=== PATIENT | female | born 1995 | race African-American/Black ===

== ENCOUNTER 2018-04-06 06:20 | Emergency (ER) | payer SELFPAY ==
[2018-04-06 07:15] LABS: Urine Blood NEGATIVE (NEG); Urine Glucose NEGATIVE (NEG); Urine Protein NEGATIVE (NEG); Urine Specific Gravity >1.030 (1.005-1.030)
--- NOTE | 2018-04-06 07:17 | EDPHYS ---
Physician Documentation [facility] Name: Minh Gallardo Age: 22 yrs Sex: Female : 1995 Arrival Date: 04/06/2018 Time: 06:24 Bed 7 Private MD: ED Physician Rodger Smith HPI: 04/06 06:43 This 22 yrs old Black Female presents to ER via Unassigned with complaints of Toothache.kb 06:43 The patient presents with pain. The problem is located in the lower left first molar kb and lower left second bicuspid. Onset: The symptoms/episode began/occurred this morning, at 03:00. Duration: The symptoms are continuous, and are steadily getting worse. Modifying factors: The symptoms are alleviated by nothing, the symptoms are aggravated by talking. Associated signs and symptoms: Pertinent positives: pain, Pertinent negatives: anorexia, chills, dysphagia, fever, inability to eat, nausea, redness in area, swelling, vomiting. Severity of symptoms: At their worst the symptoms were moderate, in the emergency department the symptoms are unchanged. The patient has not experienced similar symptoms in the past. The patient has not recently seen a physician. 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 - Social history:: Smoking status: Patient uses tobacco products, smokes one-half pack cigarettes per day. - Ebola Screening: : Patient negative for fever greater than or equal to 101.5 degrees Fahrenheit, and additional compatible Ebola Virus Disease symptoms Patient denies exposure to infectious person Patient denies travel to an Ebola-affected area in the 21 days before illness onset. ROS: 06:43 Constitutional: Negative for fever, chills, and weight loss, Cardiovascular: Negative kb for chest pain, palpitations, and edema, Respiratory: Negative for shortness of breath, cough, wheezing, and pleuritic chest pain, Abdomen/GI: Negative for abdominal pain, nausea, vomiting, diarrhea, and constipation, Back: Negative for injury and pain, MS/Extremity: Negative for injury and deformity, Skin: Negative for injury, rash, and discoloration, Neuro: Negative for headache, weakness, numbness, tingling, and seizure. 06:43 ENT: Positive for dental pain. Exam: 06:43 Constitutional: This is a well developed, well nourished patient who is awake, alert, kb and in no acute distress. Head/Face: Normocephalic, atraumatic. Chest/axilla: Normal chest wall appearance and motion. Nontender with no deformity. No lesions are appreciated. Cardiovascular: Regular rate and rhythm with a normal S1 and S2. No gallops, murmurs, or rubs. Normal PMI, no JVD. No pulse deficits. Respiratory: Lungs have equal breath sounds bilaterally, clear to auscultation and percussion. No rales, rhonchi or wheezes noted. No increased work of breathing, no retractions or nasal flaring. Abdomen/GI: Soft, non-tender, with normal bowel sounds. No distension or tympany. No guarding or rebound. No evidence of tenderness throughout. Skin: Warm, dry with normal turgor. Normal color with no rashes, no lesions, and no evidence of cellulitis. MS/ Extremity: Pulses equal, no cyanosis. Neurovascular intact. Full, normal range of motion. Neuro: Awake and alert, GCS 15, oriented to person, place, time, and situation. Cranial nerves II-XII grossly intact. Motor strength 5/5 in all extremities. Sensory grossly intact. Cerebellar exam normal. Normal gait. 06:43 ENT: Dental exam: pain, that is moderate, specifically in the lower left first molar (#19) and lower left second bicuspid (#20). Vital Signs: 06:40 BP 115 / 76; Pulse 95; Resp 18; Temp 97.4(O); Pulse Ox 100% on R/A; Weight 72.57 kg fc (R); Height 5 ft. 0 in. (152.40 cm) (R); Pain 10/10; 07:30 BP 112 / 72; Pulse 80; Resp 15; Pulse Ox 100% on R/A; sv 06:40 Body Mass Index 31.25 (72.57 kg, 152.40 cm) fc MDM: 06:39 Patient medically screened. kb 06:43 Data reviewed: vital signs, nurses notes. Data interpreted: Pulse oximetry: on room air kb is 100 %. Interpretation: normal. Counseling: I had a detailed discussion with the patient and/or guardian regarding: the historical points, exam findings, and any diagnostic results supporting the discharge/admit diagnosis, the need for outpatient follow up, a dentist, to return to the emergency department if symptoms worsen or persist or if there are any questions or concerns that arise at home. 04/06 06:58 Order name: Urine Dipstick--Ancillary (enter results); Complete Time: 07:16 mw2 04/06 06:58 Order name: Urine --Ancillary (enter results); Complete Time: 07:16 mw2 04/06 06:42 Order name: Urine Dipstick-Ancillary (obtain specimen); Complete Time: 06:55 kb 04/06 06:42 Order name: Urine Test (obtain specimen); Complete Time: 06:55 kb Administered Medications: 07:24 Drug: TORadol 60 mg Route: IM; Site: right gluteus; sv 07:46 Follow up: Response: No adverse reaction sv Disposition: 12:36 Co-signature as Attending Physician, Rodger Smith MD I agree with the assessment and wa plan of care. Disposition: 04/06/18 07:17 Discharged to Home. Impression: Toothache. - Condition is Stable. - Discharge Instructions: Dental Pain, [id number], Dental Abscess, [id number]. - Prescriptions for Augmentin 875- 125 mg Oral Tablet - take 1 tablet by ORAL route every 12 hours for 7 days; 14 tablet. - Medication Reconciliation Form, Thank You Letter, Antibiotic Education, Prescription Opioid Use, Work release form form. - Follow up: Emergency Department; When: As needed; Reason: Worsening of condition. Follow up: Private Physician; When: 2 - 3 days; Reason: Recheck today's complaints, Continuance of care, Re-evaluation by your physician. Signatures: Dispatcher [employer] Guerita Darling, Kyung Delgado RN RN sv Chretien, Felicia, RN RN fc Appiah, William, MD MD wa Corrections: (The following items were deleted from the chart) 07:45 07:17 04/06/2018 07:17 Discharged to Home. Impression: Toothache. Condition is Stable. sv Discharge Instructions: Dental Abscess, [id number]. Prescriptions for Augmentin 875-125 mg Oral Tablet - take 1 tablet by ORAL route every 12 hours for 7 days; 14 tablet. and Forms are Work release form, Medication Reconciliation Form, Thank You Letter, Antibiotic Education, Prescription Opioid Use. Follow up: Emergency Department; When: As needed; Reason: Worsening of condition. Follow up: Private Physician; When: 2 - 3 days; Reason: Recheck today's complaints, Continuance of care, Re-evaluation by your physician. kb
--- NOTE | 2018-04-06 07:17 | ER ---
Nurse's Notes [facility] Name: Minh Gallardo Age: 22 yrs Sex: Female : 1995 Arrival Date: 04/06/2018 Time: 06:24 Bed 7 Private MD: Diagnosis: Toothache Presentation: 04/06 06:40 Presenting complaint: Patient states: that at 0300 she started to have left lower fc dental pain. Transition of care: patient was not received from another setting of care. Onset of symptoms was April 06, 2018 at 03:00. Risk Assessment: Do you want to hurt yourself or someone else? Patient reports no desire to harm self or others. Initial Sepsis Screen: Does the patient meet any 2 criteria? HR > 90 bpm. Yes Does the patient have a suspected source of infection? No. Patient's initial sepsis screen is negative. Care prior to arrival: None. 06:40 Method Of Arrival: Ambulatory fc 06:40 Acuity: MARY 3 Triage Assessment: 06:50 General: Appears uncomfortable, Behavior is calm, cooperative, appropriate for age. fc Pain: Complains of pain in mouth Pain currently is 10 out of 10 on a pain scale. Quality of pain is described as aching, throbbing, Pain began 4 hours ago. Is continuous. EENT: Oral mucosa is moist. Dental caries noted in lower left second bicuspid (#20) and lower left first molar (#19) Reports pain in lower left second bicuspid (#20) and lower left first molar (#19). Neuro: Level of Consciousness is awake, alert, obeys commands, Oriented to person, place, time, situation. Cardiovascular: No deficits noted. Respiratory: No deficits noted. GI: No deficits noted. : No deficits noted. Derm: Skin is pink, warm \T\ dry. Musculoskeletal: Circulation, motion, and sensation intact. Capillary refill < 3 seconds, Range of motion: intact in all extremities. 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 - Social history:: Smoking status: Patient uses tobacco products, smokes one-half pack cigarettes per day. - Ebola Screening: : Patient negative for fever greater than or equal to 101.5 degrees Fahrenheit, and additional compatible Ebola Virus Disease symptoms Patient denies exposure to infectious person Patient denies travel to an Ebola-affected area in the 21 days before illness onset. Screenin:40 Abuse screen: Denies threats or abuse. Nutritional screening: No deficits noted. fc Tuberculosis screening: No symptoms or risk factors identified. Fall Risk None identified. Assessment: 06:55 General: Appears in no apparent distress. comfortable, Behavior is calm, cooperative, aa1 appropriate for age. Pain: Complains of pain in mouth. Neuro: Level of Consciousness is awake, alert, obeys commands, Oriented to person, place, time, situation, Speech is normal. Respiratory: Airway is patent Respiratory effort is even, unlabored, Respiratory pattern is regular, symmetrical. GI: No signs and/or symptoms were reported involving the gastrointestinal system. : No signs and/or symptoms were reported regarding the genitourinary system. EENT: Oral mucosa is moist. Poor dentition noted. Derm: Skin is intact, is healthy with good turgor, Skin is pink, warm \T\ dry. Musculoskeletal: Capillary refill < 3 seconds. 07:24 Reassessment: Patient appears in no apparent distress at this time. No changes from sv previously documented assessment. Patient and/or family updated on plan of care and expected duration. Pain level reassessed. Patient is alert, oriented x 3, equal unlabored respirations, skin warm/dry/pink. 07:39 Reassessment: Patient appears in no apparent distress at this time. No changes from sv previously documented assessment. Patient and/or family updated on plan of care and expected duration. Pain level reassessed. Patient is alert, oriented x 3, equal unlabored respirations, skin warm/dry/pink. Vital Signs: 06:40 BP 115 / 76; Pulse 95; Resp 18; Temp 97.4(O); Pulse Ox 100% on R/A; Weight 72.57 kg fc (R); Height 5 ft. 0 in. (152.40 cm) (R); Pain 10/10; 07:30 BP 112 / 72; Pulse 80; Resp 15; Pulse Ox 100% on R/A; sv 06:40 Body Mass Index 31.25 (72.57 kg, 152.40 cm) ED Course: 06:24 Patient arrived in ED. es 06:39 Guerita Barrios FNP-C is [facility]. kb 06:39 Rodger Smith MD is Attending Physician. kb 06:40 Arm band placed on Patient placed in an exam room, on a stretcher. fc 06:40 Patient has correct armband on for positive identification. Bed in low position. Call light in reach. 06:48 Triage completed. fc 06:50 Patient did not have IV access during this emergency room visit. fc 06:53 Urine collected: clean catch specimen. aa1 07:17 Kyung Milton, RN is Primary Nurse. sv 07:30 No provider procedures requiring assistance completed. sv Administered Medications: 07:24 Drug: TORadol 60 mg Route: IM; Site: right gluteus; sv 07:46 Follow up: Response: No adverse reaction sv Outcome: 07:17 Discharge ordered by MD. kb 07:30 Discharged to home ambulatory. sv 07:30 Condition: stable 07:30 Discharge instructions given to patient, Instructed on discharge instructions, follow up and referral plans. medication usage, Demonstrated understanding of instructions, follow-up care, medications, Prescriptions given X 1. 07:45 Patient left the ED. sv Signatures: Guerita Barrios FNP-C HAND STRIPPER-Rodolfob Kyung Milton, RN RN Farida Nelson, RN RN aa1 Jodie Cuenca Felicia, RN RN
[2018-04-06] MEDS ORDERED: KETOROLAC 30 MG/ML INJ ONE (07:25)
[2018-04-06 07:50] VITALS: TEMP 97.4; O2SAT 100
[2018-04-06 07:52] VITALS: BP 112/72
== END 2018-04-06 07:45 | disposition home or self-care (01) ==
LOC: ER 06:20
DX: K08.89 Other specified disorders of teeth and supporting structures (principal); F17.210 Nicotine dependence, cigarettes, uncomplicated
CPT/HCPCS: 81003; 81025; 96372; 99283

== ENCOUNTER 2018-04-09 19:57 | Emergency (ER) | payer SELFPAY ==
[2018-04-09 20:44] LABS: Urine Blood NEGATIVE (NEG); Urine Glucose NEGATIVE (NEG); Urine Protein NEGATIVE (NEG); Urine Specific Gravity <1.005 (1.005-1.030); Urine pH 6.5 (5.0-7.0)
[2018-04-09 20:52] LABS: Absolute Lymphocytes (CBC) 1.5 K/uL (0.7-4.9); Absolute Monocytes 0.6 K/uL (0.1-1.3); Absolute Neutrophil 5.3 K/uL (1.8-8.0); Basophils % 0.8 % (0-1.3); Hematocrit 33.7 % (36.0-45.0); Lymphocytes % 19.5 % (15.3-44.8); MCH 28.8 pg (27.0-35.0); MCV 85.9 fL (80-100); MPV 8.9 fL (7.6-11.3); Monocytes % 8.3 % (3.3-12.3); RBC Red Blood Cell Count 3.92 M/uL (3.86-4.86)
[2018-04-09 20:57] LABS: Urine Bacteria <20 /HPF (<20); Urine Culture Reflex Order NOT NEEDED; Urine RBC <5 /HPF (NONE SEEN)
[2018-04-09 21:15] LABS: BUN Blood Urea Nitrogen 10 mg/dL (7-18); Bicarbonate 29 mmol/L (21-32); Glucose Level 76 mg/dL (74-106); Potassium 3.4 mmol/L (3.5-5.1); Sodium Level 144 mmol/L (136-145)
--- NOTE | 2018-04-09 21:45 | EDPHYS ---
Physician Documentation [facility] Name: Minh Gallardo Age: 22 yrs Sex: Female : 1995 Arrival Date: 04/09/2018 Time: 20:00 Bed 14 Private MD: ED Physician Rk Harding HPI: 04/09 20:47 This 22 yrs old Black Female presents to ER via Ambulatory with complaints of Urinary jr8 Problem. 20:47 The patient presents with abdominal pain in the lower abdomen. Onset: The jr8 symptoms/episode began/occurred acutely, today. The symptoms do not radiate. Associated signs and symptoms: Pertinent positives: dysuria. The symptoms are described as crampy. Modifying factors: The symptoms are alleviated by nothing, the symptoms are aggravated by nothing. Severity of pain: At its worst the pain was mild in the emergency department the pain is unchanged. The patient has not experienced similar symptoms in the past. The patient has not recently seen a physician. stated that her low back is hurting as well . 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 - Social history:: Smoking status: Patient uses tobacco products, smokes one-half pack cigarettes per day, Patient uses alcohol, occasionally. - Ebola Screening: : Patient negative for fever greater than or equal to 101.5 degrees Fahrenheit, and additional compatible Ebola Virus Disease symptoms Patient denies exposure to infectious person Patient denies travel to an Ebola-affected area in the 21 days before illness onset. ROS: 20:47 Eyes: Negative for injury, pain, redness, and discharge, ENT: Negative for injury, jr8 pain, and discharge, Neck: Negative for injury, pain, and swelling, Cardiovascular: Negative for chest pain, palpitations, and edema, Respiratory: Negative for shortness of breath, cough, wheezing, and pleuritic chest pain, MS/Extremity: Negative for injury and deformity, Skin: Negative for injury, rash, and discoloration, Neuro: Negative for headache, weakness, numbness, tingling, and seizure. 20:47 Abdomen/GI: Positive for abdominal pain, abdominal cramps, Negative for nausea, vomiting, and diarrhea, abdominal distension, anorexia, dysphagia, hematemesis, black/tarry stool, rectal pain, rectal bleeding, bowel incontinence, flatulence. 20:47 Back: Positive for pain at rest, Negative for pain with movement, radiated pain. 20:47 : Positive for urinary frequency, Negative for flank pain, burning with urination, difficulty urinating, vaginal bleeding, vaginal discharge, vaginal itching. Exam: 20:47 Eyes: Pupils equal round and reactive to light, extra-ocular motions intact. Lids and jr8 lashes normal. Conjunctiva and sclera are non-icteric and not injected. Cornea within normal limits. Periorbital areas with no swelling, redness, or edema. ENT: Nares patent. No nasal discharge, no septal abnormalities noted. Tympanic membranes are normal and external auditory canals are clear. Oropharynx with no redness, swelling, or masses, exudates, or evidence of obstruction, uvula midline. Mucous membranes moist. Neck: Trachea midline, no thyromegaly or masses palpated, and no cervical lymphadenopathy. Supple, full range of motion without nuchal rigidity, or vertebral point tenderness. No Meningismus. Cardiovascular: Regular rate and rhythm with a normal S1 and S2. No gallops, murmurs, or rubs. Normal PMI, no JVD. No pulse deficits. Respiratory: Lungs have equal breath sounds bilaterally, clear to auscultation and percussion. No rales, rhonchi or wheezes noted. No increased work of breathing, no retractions or nasal flaring. Back: No spinal tenderness. No costovertebral tenderness. Full range of motion. Skin: Warm, dry with normal turgor. Normal color with no rashes, no lesions, and no evidence of cellulitis. MS/ Extremity: Pulses equal, no cyanosis. Neurovascular intact. Full, normal range of motion. Neuro: Awake and alert, GCS 15, oriented to person, place, time, and situation. Cranial nerves II-XII grossly intact. Motor strength 5/5 in all extremities. Sensory grossly intact. Cerebellar exam normal. Normal gait. 20:47 Abdomen/GI: Inspection: abdomen appears normal, Bowel sounds: active, all quadrants, Palpation: soft, in all quadrants, mild abdominal tenderness, in the suprapubic area, rebound tenderness, is not appreciated, voluntary guarding, is not appreciated, involuntary guarding, is not appreciated, no appreciated organomegaly, Indicators: McBurney's point is not tender, Sanon's sign is negative, Rovsing's sign is negative, Liver: no appreciated palpable abnormalities, tenderness, is not appreciated. Vital Signs: 20:12 BP 140 / 91; Pulse 78; Resp 18; Temp 98.8(O); Pulse Ox 100% on R/A; Weight 72.57 kg fc (R); Height 5 ft. 10 in. (177.80 cm) (R); Pain 8/10; 21:21 BP 130 / 94; Pulse 72; Resp 18; Pulse Ox 100% ; Pain 8/10; ao 20:12 Body Mass Index 22.96 (72.57 kg, 177.80 cm) fc MDM: 20:14 Patient medically screened. [facility] 21:41 Data reviewed: vital signs, nurses notes, lab test result(s), and as a result, I will jr discharge patient. Data interpreted: Pulse oximetry: on room air is 100 %. Interpretation: normal. Counseling: I had a detailed discussion with the patient and/or guardian regarding: the historical points, exam findings, and any diagnostic results supporting the discharge/admit diagnosis, lab results, the need for outpatient follow up, a family practitioner, to return to the emergency department if symptoms worsen or persist or if there are any questions or concerns that arise at home. ED course: Patient with benign abdomen. Negative for WBC or left shift. Hemodynamically stable. Patient wants to try pain medicine at home for now. If worse or something changes, would come back for further evaluation and CT scan of abd/pelvis . 04/09 20:14 Order name: Urine Microscopic Only; Complete Time: 21:01 jr8 04/09 20:21 Order name: Urine Dipstick--Ancillary (enter results); Complete Time: 20:47 ms 04/09 20:21 Order name: Test, Serum; Complete Time: 21:05 ms 04/09 20:21 Order name: CBC with Diff; Complete Time: 21:01 ms 04/09 20:21 Order name: Basic Metabolic Panel; Complete Time: 21:24 ms 04/09 20:14 Order name: Urine Test (obtain specimen); Complete Time: 20:44 jr8 04/09 20:14 Order name: Urine Dipstick-Ancillary (obtain specimen); Complete Time: 20:44 Administered Medications: 21:51 Drug: Potassium Chloride 20 mEq Route: PO; ao 21:56 Follow up: Response: No adverse reaction ao 21:53 Drug: TORadol 60 mg Route: IM; Site: left gluteus; ao 21:56 Follow up: Response: Medication administered at discharge. ao Disposition: 22:12 Co-signature as Attending Physician, Rk Harding MD. pkl Disposition: 04/09/18 21:44 Discharged to Home. Impression: Abdominal and pelvic pain. - Condition is Stable. - Discharge Instructions: Abdominal Pain, Adult. - Prescriptions for Ibuprofen 800 mg Oral Tablet - take 1 tablet by ORAL route every 12 hours As needed take with food; 20 tablet. Tylenol- Codeine #3 300-30 mg Oral Tablet - take 2 tablets by ORAL route every 6 hours As needed; 20 tablet. - Medication Reconciliation Form, Thank You Letter, Antibiotic Education, Prescription Opioid Use form. - Follow up: Private Physician; When: 2 - 3 days; Reason: Recheck today's complaints, Continuance of care, Re-evaluation by your physician. - Problem is new. - Symptoms have improved. Signatures: Dispatcher [employer] EDMS Rk Harding MD MD pk Meredith Martinez RN RN Vance Uribe PA PA jr8 Francesco Ames RN RN ao Corrections: (The following items were deleted from the chart) 20:49 20:47 : Positive for urinary frequency, jr8 22:05 21:44 04/09/2018 21:44 Discharged to Home. Impression: Abdominal and pelvic pain. ao Condition is Stable. Forms are Medication Reconciliation Form, Thank You Letter, Antibiotic Education, Prescription Opioid Use. Follow up: Private Physician; When: 2 - 3 days; Reason: Recheck today's complaints, Continuance of care, Re-evaluation by your physician. Problem is new. Symptoms have improved. jr8
--- NOTE | 2018-04-09 21:45 | ER ---
Nurse's Notes [facility] Name: Minh Gallardo Age: 22 yrs Sex: Female : 1995 Arrival Date: 04/09/2018 Time: 20:00 Bed 14 Private MD: Diagnosis: Abdominal and pelvic pain Presentation: 04/09 20:10 Presenting complaint: Patient states: that she is having lower back pain and lower abd fc pain that started 1 day ago. Also having urinary frequency. States she fells as if she has a UTI. Transition of care: patient was not received from another setting of care. Onset of symptoms was April 08, 2018. Risk Assessment: Do you want to hurt yourself or someone else? Patient reports no desire to harm self or others. Initial Sepsis Screen: Does the patient meet any 2 criteria? No. Patient's initial sepsis screen is negative. Does the patient have a suspected source of infection? No. Patient's initial sepsis screen is negative. Care prior to arrival: Medication(s) given: Tylenol, this am. 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 - Social history:: Smoking status: Patient uses tobacco products, smokes one-half pack cigarettes per day, Patient uses alcohol, occasionally. - Ebola Screening: : Patient negative for fever greater than or equal to 101.5 degrees Fahrenheit, and additional compatible Ebola Virus Disease symptoms Patient denies exposure to infectious person Patient denies travel to an Ebola-affected area in the 21 days before illness onset. Screenin:12 Abuse screen: Denies threats or abuse. Nutritional screening: No deficits noted. fc Tuberculosis screening: No symptoms or risk factors identified. Fall Risk None identified. Assessment: 20:30 General: Appears in no apparent distress. comfortable, well groomed, well developed, ao well nourished, Behavior is calm, cooperative, appropriate for age. Pain: Complains of pain in back and suprapubic area. Neuro: Level of Consciousness is awake, alert, obeys commands, Oriented to person, place, time, situation, Appropriate for age Moves all extremities. Full function Speech is normal, Facial symmetry appears normal, Pupils are PERRLA. Cardiovascular: Denies chest pain, lightheadedness, shortness of breath, Capillary refill < 3 seconds Patient's skin is warm and dry. Respiratory: Airway is patent Respiratory effort is even, unlabored, Respiratory pattern is regular, symmetrical. GI: Abdomen is flat. : Reports burning with urination, pain urgency, urinary frequency. EENT: No signs and/or symptoms were reported regarding the EENT system. Derm: Skin is intact, Skin is pink, warm \T\ dry. normal, Skin temperature is warm. Musculoskeletal: Circulation, motion, and sensation intact. Range of motion:. 21:21 Reassessment: Patient appears in no apparent distress at this time. Patient and/or ao family updated on plan of care and expected duration. Pain level reassessed. Patient is alert, oriented x 3, equal unlabored respirations, skin warm/dry/pink. Patient under no distress. Monitoring VS. waiting on Dispo orders. Vital Signs: 20:12 BP 140 / 91; Pulse 78; Resp 18; Temp 98.8(O); Pulse Ox 100% on R/A; Weight 72.57 kg fc (R); Height 5 ft. 10 in. (177.80 cm) (R); Pain 8/10; 21:21 BP 130 / 94; Pulse 72; Resp 18; Pulse Ox 100% ; Pain 8/10; ao 20:12 Body Mass Index 22.96 (72.57 kg, 177.80 cm) ED Course: 20:00 Patient arrived in ED. es 20:11 Triage completed. fc 20:12 Arm band placed on Patient placed in an exam room, on a stretcher. fc 20:12 Patient has correct armband on for positive identification. Bed in low position. Call light in reach. 20:12 No provider procedures requiring assistance completed. fc 20:13 Vance Chavis PA is PHCP. jr8 20:14 Rk Harding MD is Attending Physician. jr8 20:18 Francesco Ames, YOLA is Primary Nurse. ao 20:30 Missed attempt(s): 22 gauge in right antecubital area. ao 20:30 Inserted saline lock: 22 gauge in right antecubital area, using aseptic technique. ao ,using aseptic technique. Ultrasound guided technique used Blood collected. 22:04 IV discontinued, intact, bleeding controlled, No redness/swelling at site. Pressure ao dressing applied. Administered Medications: 21:51 Drug: Potassium Chloride 20 mEq Route: PO; ao 21:56 Follow up: Response: No adverse reaction ao 21:53 Drug: TORadol 60 mg Route: IM; Site: left gluteus; ao 21:56 Follow up: Response: Medication administered at discharge. ao Outcome: 21:44 Discharge ordered by MD. kuo 22:04 Discharged to home ao 22:04 Condition: stable 22:04 Discharge instructions given to patient, Instructed on discharge instructions, follow up and referral plans. Demonstrated understanding of instructions, follow-up care, medications, Prescriptions given X 2. 22:05 Patient left the ED. ao Signatures: Jodie Cuenca Felicia, RN RN fc Roszak, Josh, PA PA jr8 Ortiz, Alex, RN RN ao
[2018-04-09] MEDS ORDERED: KETOROLAC 30 MG/ML INJ ONE ×2 (21:49→21:56)
[2018-04-09] MEDS ORDERED: POTASSIUM 25 MEQ EFFERV TAB ONE (21:50)
[2018-04-09 22:46] VITALS: TEMP 98.8; O2SAT 100
[2018-04-09 22:47] VITALS: BP 130/94
== END 2018-04-09 22:05 | disposition home or self-care (01) ==
LOC: ER 19:57
DX: R10.9 Unspecified abdominal pain (principal); R30.0 Dysuria; F17.210 Nicotine dependence, cigarettes, uncomplicated; R10.2 Pelvic and perineal pain
CPT/HCPCS: 36415; 80048; 81003; 81015; 84703; 85025; 96372; 99284

== ENCOUNTER 2018-04-21 18:43 | Emergency (ER) | payer OTHER, SELFPAY ==
--- NOTE | 2018-04-21 19:52 | ER ---
Nurse's Notes [facility] Name: Minh Gallardo Age: 22 yrs Sex: Female : 1995 Arrival Date: 04/21/2018 Time: 18:46 Bed 13 Private MD: Diagnosis: Abnormal uterine and vaginal bleeding, unspecified Presentation: 04/21 18:51 Presenting complaint: Patient states: Vaginal spotting that started yesterday. Patient aj reports positive home test. Transition of care: patient was not received from another setting of care. Onset of symptoms was April 20, 2018. Risk Assessment: Do you want to hurt yourself or someone else? Patient reports no desire to harm self or others. Initial Sepsis Screen: Does the patient meet any 2 criteria? No. Patient's initial sepsis screen is negative. Does the patient have a suspected source of infection? No. Patient's initial sepsis screen is negative. Care prior to arrival: None. 18:51 Method Of Arrival: Ambulatory aj 18:51 Acuity: MARY 3 aj Triage Assessment: 18:52 General: Appears in no apparent distress. comfortable, Behavior is calm, cooperative, aj appropriate for age. Pain: Denies pain. Neuro: Level of Consciousness is awake, alert, obeys commands, Oriented to person, place, time, situation, Appropriate for age. Respiratory: Airway is patent Respiratory effort is even, unlabored, Respiratory pattern is regular, symmetrical. : Reports vaginal bleeding that is spotty. Derm: Skin is intact, is healthy with good turgor, Skin is pink, warm \T\ dry. normal. 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 - Social history:: Smoking status: Patient uses tobacco products, smokes one-half pack cigarettes per day. - Ebola Screening: : Patient negative for fever greater than or equal to 101.5 degrees Fahrenheit, and additional compatible Ebola Virus Disease symptoms Patient denies exposure to infectious person Patient denies travel to an Ebola-affected area in the 21 days before illness onset No symptoms or risks identified at this time. Screenin:18 Abuse screen: Denies threats or abuse. Nutritional screening: No deficits noted. tl2 Tuberculosis screening: No symptoms or risk factors identified. Fall Risk None identified. Assessment: 19:18 General: Appears in no apparent distress. comfortable, Behavior is calm, cooperative, tl2 appropriate for age. General: Pt states that she is about a week late on her period. Yesterday she reported light spotting and today she had a light flow but not as heavy as her normal period. . Pain: Denies pain. Neuro: Level of Consciousness is awake, alert, obeys commands, Oriented to person, place, time, situation. Cardiovascular: Denies chest pain. Respiratory: Airway is patent Respiratory effort is even, unlabored, Respiratory pattern is regular, symmetrical. : Reports vaginal bleeding that is bright red, light flow, spotty. Derm: Skin is pink, warm \T\ dry. 19:21 Reassessment: Pt notified that she needs to give a urine sample. tl2 20:05 Reassessment: Patient appears in no apparent distress at this time. Patient and/or tl2 family updated on plan of care and expected duration. Pain level reassessed. Patient is alert, oriented x 3, equal unlabored respirations, skin warm/dry/pink. Pt verbalized understanding of discharge instructions, need for follow up. Vital Signs: 18:52 BP 125 / 74; Pulse 90; Resp 16; Temp 97.6; Pulse Ox 100% on R/A; Weight 72.57 kg; aj Height 5 ft. 0 in. (152.40 cm); 19:18 BP 130 / 76; Pulse 79; Resp 18; Pulse Ox 96% on R/A; tl2 18:52 Body Mass Index 31.25 (72.57 kg, 152.40 cm) ED Course: 18:46 Patient arrived in ED. mr 18:51 Haris Haney PA is PHCP. [facility] 18:51 Alfredo Deras MD is Attending Physician. [facility] 18:52 Triage completed. aj 18:52 Arm band placed on right wrist. Patient placed in an exam room. aj 19:18 Rhea Carter, YOLA is Primary Nurse. tl2 19:18 Patient has correct armband on for positive identification. Placed in gown. Bed in low tl2 position. Call light in reach. Side rails up X 1. 20:05 No provider procedures requiring assistance completed. Patient did not have IV access tl2 during this emergency room visit. Administered Medications: No medications were administered Outcome: 19:51 Discharge ordered by . jessica 20:05 Discharged to home ambulatory. tl2 20:05 Condition: stable 20:05 Discharge instructions given to patient, Instructed on discharge instructions, follow up and referral plans. Demonstrated understanding of instructions, follow-up care. 20:06 Patient left the ED. tl2 Signatures: Leyla Mckee, RN RN Haris Connor PA PA jmm Rivera, Maria mr Knox, Taylor, RN RN tl2
--- NOTE | 2018-04-21 19:52 | EDPHYS ---
Physician Documentation [facility] Name: Minh Gallardo Age: 22 yrs Sex: Female : 1995 Arrival Date: 04/21/2018 Time: 18:46 Bed 13 Private MD: ED Physician Alfredo Deras HPI: 04/21 19:06 This 22 yrs old Black Female presents to ER via Ambulatory with complaints of 3 wks jmm , Vaginal Bleeding. 19:06 The patient presents with vaginal bleeding that is moderate. Onset: The jmm symptoms/episode began/occurred gradually, 1 day(s) ago. Modifying factors: The symptoms are alleviated by nothing, the symptoms are aggravated by nothing. Associated signs and symptoms: Pertinent positives: vaginal bleeding, Pertinent negatives: cramping, dysuria, urinary frequency, vomiting. This is a that presents to the ED with complains of vaginal bleeding. Patient states her last cycle was on 03/07/2018. Patient states yesterday having a positive home test. Patient states that she spotted yesterday with heavier bleeding today. patient denies abdominal pain, pelvic pain, low back pain. . 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 - Social history:: Smoking status: Patient uses tobacco products, smokes one-half pack cigarettes per day. - Ebola Screening: : Patient negative for fever greater than or equal to 101.5 degrees Fahrenheit, and additional compatible Ebola Virus Disease symptoms Patient denies exposure to infectious person Patient denies travel to an Ebola-affected area in the 21 days before illness onset No symptoms or risks identified at this time. ROS: 19:06 Constitutional: Negative for fever, chills, and weight loss, Cardiovascular: Negative jmm for chest pain, palpitations, and edema, Respiratory: Negative for shortness of breath, cough, wheezing, and pleuritic chest pain, Abdomen/GI: Negative for abdominal pain, nausea, vomiting, diarrhea, and constipation. 19:06 : Positive for vaginal bleeding. 19:06 All other systems are negative. Exam: 19:06 Head/Face: atraumatic. Chest/axilla: Normal chest wall appearance and motion. [facility] Cardiovascular: Regular rate and rhythm. No edema appreciated Respiratory: Normal respirations, no respiratory distress appreciated Abdomen/GI: Non distended, soft 19:06 Constitutional: The patient appears in no acute distress, alert, awake. 19:06 Abdomen/GI: Inspection: abdomen appears normal, Bowel sounds: normal, Palpation: abdomen is soft and non-tender. 19:06 Back: CVA tenderness, is absent. 19:06 : refused pelvic exam. 19:06 Skin: Appearance: Color: normal in color. 19:06 Neuro: Orientation: is normal, Mentation: is normal, Memory: is normal. Vital Signs: 18:52 BP 125 / 74; Pulse 90; Resp 16; Temp 97.6; Pulse Ox 100% on R/A; Weight 72.57 kg; aj Height 5 ft. 0 in. (152.40 cm); 19:18 BP 130 / 76; Pulse 79; Resp 18; Pulse Ox 96% on R/A; tl2 18:52 Body Mass Index 31.25 (72.57 kg, 152.40 cm) aj MDM: 19:29 Patient medically screened. [facility] 19:51 Data reviewed: vital signs, nurses notes. Counseling: I had a detailed discussion with [facility] the patient and/or guardian regarding: the historical points, exam findings, and any diagnostic results supporting the discharge/admit diagnosis, the need for outpatient follow up, to return to the emergency department if symptoms worsen or persist or if there are any questions or concerns that arise at home. 21:57 ED course: Patient advised of the need for cbc and pelvic exam due to abnormal [facility] bleeding. Patient declined after she received UPT results. Patient given return precautions. Patient understood. . 04/21 19:45 Order name: Urine Dipstick--Ancillary (enter results); Complete Time: 21:57 [facility] 04/21 19:45 Order name: Urine --Ancillary (enter results); Complete Time: 21:57 [facility] 04/21 19:06 Order name: Urine Dipstick-Ancillary (obtain specimen); Complete Time: 19:35 [facility] 04/21 19:06 Order name: Urine Test (obtain specimen); Complete Time: 19:35 [facility] Administered Medications: No medications were administered Disposition: 04/21/18 19:51 Discharged to Home. Impression: Abnormal uterine and vaginal bleeding, unspecified. - Condition is Stable. - Discharge Instructions: Abnormal Uterine Bleeding. - Medication Reconciliation Form, Thank You Letter, Antibiotic Education, Prescription Opioid Use form. - Follow up: Private Physician; When: 2 - 3 days; Reason: Recheck today's complaints, Continuance of care, Re-evaluation by your physician. - Notes: Please follow up with OBGYN for further evaluation. Please return to the emergency department if you develop. - Pelvic Pain - Increased bleeding - Weakness - Shortness of breath - Any other concerning symptoms Addendum: 04/22/2018 23:15 Co-signature as Attending Physician, Alfredo Deras MD. g s Signatures: Dispatcher [employer] EDMS Leyla Mckee, RN RN Haris Connor PA PA jmm Knox, Taylor, RN RN tl2 Alfredo Deras MD MD Corrections: (The following items were deleted from the chart) 04/21 20:06 19:51 04/21/2018 19:51 Discharged to Home. Impression: Abnormal uterine and vaginal tl2 bleeding, unspecified. Condition is Stable. Forms are Medication Reconciliation Form, Thank You Letter, Antibiotic Education, Prescription Opioid Use. Follow up: Private Physician; When: 2 - 3 days; Reason: Recheck today's complaints, Continuance of care, Re-evaluation by your physician. jessica
[2018-04-21 20:05] LABS: Urine Blood 2+ (NEG); Urine Glucose NEGATIVE (NEG); Urine Protein NEGATIVE (NEG)
[2018-04-21 20:12] VITALS: TEMP 97.6
[2018-04-21 20:13] VITALS: BP 130/76; O2SAT 96
== END 2018-04-21 20:06 | disposition home or self-care (01) ==
LOC: ER 18:43
DX: O20.9 Hemorrhage in early pregnancy, unspecified (principal)
CPT/HCPCS: 81003; 81025; 99281

== ENCOUNTER 2018-09-17 16:22 | Emergency (ER) | payer SELFPAY ==
--- NOTE | 2018-09-17 19:21 | ER ---
Nurse's Notes [facility] Name: Minh Gallardo Age: 22 yrs Sex: Female : 1995 Arrival Date: 09/17/2018 Time: 16:26 Bed DIS2 Private MD: RENO OLIVIER Diagnosis: Influenza due to certain identified influenza viruses Presentation: 09/17 16:52 Presenting complaint: Patient states: chills, cough, fever, and sore throat x 4 days aa5 ago. 16:52 Transition of care: patient was not received from another setting of care. Onset of aa5 symptoms was September 2018. Risk Assessment: Do you want to hurt yourself or someone else? Patient reports no desire to harm self or others. Initial Sepsis Screen: Does the patient meet any 2 criteria? No. Patient's initial sepsis screen is negative. Does the patient have a suspected source of infection? No. Patient's initial sepsis screen is negative. Care prior to arrival: None. 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 - Social history:: Smoking status: Patient uses tobacco products, smokes one-half pack cigarettes per day, Patient/guardian denies using alcohol, street drugs, The patient lives with family. - Ebola Screening: : No symptoms or risks identified at this time. - Family history:: not pertinent. - Hospitalizations: : No recent hospitalization is reported. Screenin:51 Abuse screen: Denies threats or abuse. Denies injuries from another. Nutritional aj screening: No deficits noted. Tuberculosis screening: No symptoms or risk factors identified. Fall Risk None identified. Assessment: 19:51 General: Appears in no apparent distress. comfortable, Behavior is calm, cooperative, aj appropriate for age. Pain: Complains of pain in entire body. Neuro: Level of Consciousness is awake, alert, obeys commands, Oriented to person, place, time, situation, Appropriate for age. Respiratory: Reports cough that is Airway is patent Respiratory effort is even, unlabored, Respiratory pattern is regular, symmetrical. Respiratory: Reports. EENT: Reports nasal congestion nasal discharge. Derm: Skin is intact, is healthy with good turgor, Skin is pink, warm \T\ dry. normal. Vital Signs: 16:59 BP 122 / 74; Pulse 92; Resp 18 S; Temp 99.2(O); Pulse Ox 100% on R/A; Weight 77.56 kg aa5 (R); Height 5 ft. 0 in. (152.40 cm) (R); Pain 9/10; 16:59 Body Mass Index 33.40 (77.56 kg, 152.40 cm) aa5 ED Course: 16:26 Patient arrived in ED. mr 16:27 WILMER OLIVIERIE is Private Physician. mr 16:52 Arm band placed on. aa5 16:58 Triage completed. aa5 17:09 Brian Price MD is Attending Physician. ma2 18:35 Leyla Mckee, RN is Primary Nurse. aj 19:51 Patient has correct armband on for positive identification. aj 19:51 No provider procedures requiring assistance completed. Patient did not have IV access aj during this emergency room visit. Administered Medications: 18:50 CANCELLED (Physician Discretion): Rocephin 50 mg/kg IV at calculated rate once; IM not aj iv please 19:41 Drug: TORadol 60 mg Route: IM; Site: left gluteus; aj 20:04 Follow up: Response: No adverse reaction aj Outcome: 19:19 Discharge ordered by . ma2 20:05 Discharged to home ambulatory. aj 20:05 Condition: good 20:05 Discharge instructions given to patient, Instructed on discharge instructions, follow up and referral plans. medication usage, Demonstrated understanding of instructions, follow-up care, medications, Prescriptions given X 1. 20:06 Patient left the ED. aj Signatures: Leyla Mckee, Christiana Macedo RN, Audri RN RN aa Brian Price MD MD ma2
--- NOTE | 2018-09-17 19:22 | EDPHYS ---
Physician Documentation [facility] Name: Minh Gallardo Age: 22 yrs Sex: Female : 1995 Arrival Date: 09/17/2018 Time: 16:26 Bed DIS2 Private MD: RENO OLIVIER ED Physician Brian Price HPI: 09/17 17:39 This 22 yrs old Black Female presents to ER via Ambulatory with complaints of Flu ma2 Symptoms. 17:39 Onset: The symptoms/episode began/occurred gradually, 3 day(s) ago. Severity of ma2 symptoms: At their worst the symptoms were moderate in the emergency department the symptoms are unchanged. The patient has experienced similar episodes in the past. 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 - Social history:: Smoking status: Patient uses tobacco products, smokes one-half pack cigarettes per day, Patient/guardian denies using alcohol, street drugs, The patient lives with family. - Ebola Screening: : No symptoms or risks identified at this time. - Family history:: not pertinent. - Hospitalizations: : No recent hospitalization is reported. ROS: 17:39 Constitutional: Negative for fever, chills, and weight loss. ma2 17:39 ENT: Positive for rhinorrhea, sore throat, Negative for drainage from ear(s), foreign body sensation, hearing loss. 17:39 All other systems are negative. Exam: 17:39 Constitutional: This is a well developed, well nourished patient who is awake, alert, ma2 and in no acute distress. 17:39 Chest/axilla: Normal chest wall appearance and motion. Nontender with no deformity. No lesions are appreciated. Cardiovascular: Regular rate and rhythm with a normal S1 and S2. No gallops, murmurs, or rubs. Normal PMI, no JVD. No pulse deficits. Respiratory: Lungs have equal breath sounds bilaterally, clear to auscultation and percussion. No rales, rhonchi or wheezes noted. No increased work of breathing, no retractions or nasal flaring. Abdomen/GI: Soft, non-tender, with normal bowel sounds. No distension or tympany. No guarding or rebound. No evidence of tenderness throughout. MS/ Extremity: Pulses equal, no cyanosis. Neurovascular intact. Full, normal range of motion. Neuro: Awake and alert, GCS 15, oriented to person, place, time, and situation. Cranial nerves II-XII grossly intact. Motor strength 5/5 in all extremities. Sensory grossly intact. Cerebellar exam normal. Normal gait. 17:39 ENT: Posterior pharynx: Tonsils: bilaterally enlarged, with erythema, peritonsillar mass, is not appreciated, pooling of secretions, is not appreciated. Vital Signs: 16:59 BP 122 / 74; Pulse 92; Resp 18 S; Temp 99.2(O); Pulse Ox 100% on R/A; Weight 77.56 kg aa5 (R); Height 5 ft. 0 in. (152.40 cm) (R); Pain 9/10; 16:59 Body Mass Index 33.40 (77.56 kg, 152.40 cm) aa5 MDM: 17:39 Differential Diagnosis uri vs flu. Data reviewed: vital signs, nurses notes. ma2 Counseling: I had a detailed discussion with the patient and/or guardian regarding: the historical points, exam findings, and any diagnostic results supporting the discharge/admit diagnosis, the presence of at least one elevated blood pressure reading (>120/80) during this emergency department visit, the need for outpatient follow up. Response to treatment: the patient's symptoms have markedly improved after treatment. 18:44 Patient medically screened. ma2 09/17 17:37 Order name: Influenza Screen (a \T\ B); Complete Time: 19:19 ma2 Administered Medications: 18:50 CANCELLED (Physician Discretion): Rocephin 50 mg/kg IV at calculated rate once; IM not aj iv please 19:41 Drug: TORadol 60 mg Route: IM; Site: left gluteus; aj 20:04 Follow up: Response: No adverse reaction aj Disposition: 09/17/18 19:19 Discharged to Home. Impression: Influenza due to certain identified influenza viruses. - Condition is Stable. - Discharge Instructions: Influenza, Adult. - Prescriptions for Tamiflu 75 mg Oral Capsule - take 1 tablet by ORAL route every 12 hours for 5 days; 10 tablet. - Medication Reconciliation Form, Thank You Letter, Antibiotic Education, Prescription Opioid Use form. - Follow up: Private Physician; When: Tomorrow; Reason: Continuance of care. Signatures: Dispatcher [employer] Leyla Tapia, RN Debbie Trinidad RN RN aa5 Brian Price MD MD ma2 Corrections: (The following items were deleted from the chart) 18:50 17:37 [id number] [Rocephin 50 mg/kg IV at calculated rate once; IM not iv please] aj ordered. ma2 20:06 19:19 09/17/2018 19:19 Discharged to Home. Impression: Influenza due to certain aj identified influenza viruses. Condition is Stable. Prescriptions for Tamiflu 75 mg Oral Capsule - take 1 tablet by ORAL route every 12 hours for 5 days; 10 tablet. and Forms are Medication Reconciliation Form, Thank You Letter, Antibiotic Education, Prescription Opioid Use. Follow up: Private Physician; When: Tomorrow; Reason: Continuance of care. ma2
[2018-09-17] MEDS ORDERED: KETOROLAC 30 MG/ML INJ ONE (19:49)
[2018-09-17] MEDS ORDERED: NA CHLORIDE 0.9% 250 ML ONE (20:28)
[2018-09-17 20:37] VITALS: BP 122/74; TEMP 99.2; O2SAT 100
== END 2018-09-17 20:06 | disposition home or self-care (01) ==
LOC: ER 16:22
DX: J10.1 Influenza due to other identified influenza virus with other respiratory manifestations (principal); F17.210 Nicotine dependence, cigarettes, uncomplicated
CPT/HCPCS: 87804; 96372; 99283

== ENCOUNTER 2018-10-06 09:35 | Emergency (ER) | payer SELFPAY ==
--- NOTE | 2018-10-06 10:33 | ER ---
Nurse's Notes [facility] Name: Minh Gallardo Age: 23 yrs Sex: Female : 1995 Arrival Date: 10/06/2018 Time: 09:38 Bed 13 Private MD: RENO OLIVIER Diagnosis: Functional dyspepsia; state, incidental Presentation: 10/06 09:57 Presenting complaint: Patient states: lower abdominal pain since last night around 2300. comes and goes, cramping, range is a pain of 6 to a pain of 8. denies NVD, last BM was this morning, normal for pt. states 2 days ago she vomited x1. also states she is finishing tamiflu, the whole family had the flu. states lmp was 08/30/18, might be . Transition of care: patient was not received from another setting of care. Onset of symptoms was October 05, 2018 at 23:00. Risk Assessment: Do you want to hurt yourself or someone else? Patient reports no desire to harm self or others. Initial Sepsis Screen: Does the patient meet any 2 criteria? No. Patient's initial sepsis screen is negative. Does the patient have a suspected source of infection? No. Patient's initial sepsis screen is negative. Care prior to arrival: Medication(s) given: Motrin. 09:57 Method Of Arrival: Ambulatory 09:57 Acuity: MARY 3 ch Triage Assessment: 10:00 General: Appears in no apparent distress. comfortable, Behavior is calm, cooperative, ch appropriate for age. Pain: Complains of pain in suprapubic area, right lower quadrant and left lower quadrant Pain. EENT: No deficits noted. Neuro: No deficits noted. Cardiovascular: No deficits noted. Respiratory: Airway is patent Respiratory effort is even, unlabored, Breath sounds are clear bilaterally. GI: Abdomen is round Bowel sounds present X 4 quads. Abd is soft X 4 quads Abd is non tender X 4 quads Reports lower abdominal pain, cramping. : No signs and/or symptoms were reported regarding the genitourinary system. Denies burning with urination, cramping discharge, urinary frequency, urgency, vaginal bleeding, vaginal itching. Derm: Skin is intact, Skin is dry, Skin is normal, Skin temperature is warm. Musculoskeletal: Capillary refill < 3 seconds, in bilateral fingers. toes. 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 - Social history:: Smoking status: Patient/guardian denies using tobacco. - Ebola Screening: : Patient negative for fever greater than or equal to 101.5 degrees Fahrenheit, and additional compatible Ebola Virus Disease symptoms Patient denies exposure to infectious person Patient denies travel to an Ebola-affected area in the 21 days before illness onset No symptoms or risks identified at this time. Screenin:04 Abuse screen: Denies threats or abuse. Denies injuries from another. Nutritional screening: No deficits noted. Tuberculosis screening: No symptoms or risk factors identified. Fall Risk None identified. Assessment: 10:04 Reassessment: Patient appears in no apparent distress at this time. Patient and/or family updated on plan of care and expected duration. Pain level reassessed. Patient is alert, oriented x 3, equal unlabored respirations, skin warm/dry/pink. 11:03 Reassessment: Patient appears in no apparent distress at this time. No changes from previously documented assessment. Patient and/or family updated on plan of care and expected duration. Pain level reassessed. Patient is alert, oriented x 3, equal unlabored respirations, skin warm/dry/pink. Patient states feeling better. Vital Signs: 10:00 BP 124 / 43; Pulse 88; Resp 16; Temp 98.8; Pulse Ox 100% on R/A; Weight 76.66 kg; Height 5 ft. (152.40 cm); Pain 6/10; 11:03 BP 120 / 72; Pulse 71; Resp 16; Temp 98.6; Pulse Ox 99% on R/A; Pain 5/10; 10:00 Body Mass Index 33.01 (76.66 kg, 152.40 cm) ED Course: 09:38 Patient arrived in ED. mr 09:38 RENO OLIVIER is Private Physician. mr 09:49 Ruma Chiu, YOLA is Primary Nurse. 09:53 Debra Gross FNP-C is [facility]. snw 09:53 Brian Price MD is Attending Physician. snw 09:59 Triage completed. 10:00 Arm band placed on left wrist. Patient placed in an exam room, on a stretcher, on pulse ch oximetry. 10:04 Patient has correct armband on for positive identification. Placed in gown. Bed in low ch position. Call light in reach. Side rails up X 1. Pulse ox on. NIBP on. 10:17 Urine collected: clean catch specimen, cloudy, brandon colored. jb1 10:31 Wagner Pressley MD is Referral Physician. snw 11:03 No apparent distress. Resting quietly. ch 11:03 No provider procedures requiring assistance completed. Patient did not have IV access ch during this emergency room visit. Administered Medications: No medications were administered Outcome: 10:32 Discharge ordered by . snw 11:03 Patient left the ED. ch 11:03 Discharged to home ambulatory. 11:03 Condition: improved 11:03 Discharge instructions given to patient, Instructed on discharge instructions, follow up and referral plans. Demonstrated understanding of instructions, follow-up care. Signatures: Jose Chavira jb1 Ruma Chiu, RN RN Debra Gross FNP-C CLIENT SERVICE CONSULTANT-[facility] Christiana Miramontes
--- NOTE | 2018-10-06 10:33 | EDPHYS ---
Physician Documentation [facility] Name: Minh Gallardo Age: 23 yrs Sex: Female : 1995 Arrival Date: 10/06/2018 Time: 09:38 Bed 13 Private MD: RENO OLIVIER ED Physician Brian Price HPI: 10/06 10:15 This 23 yrs old Black Female presents to ER via Ambulatory with complaints of Abdominal snw Cramping. 10:16 The patient presents with abdominal pain in the lower abdomen. Onset: The snw symptoms/episode began/occurred suddenly, 1 week(s) ago, and became persistent. The symptoms do not radiate. Associated signs and symptoms: Pertinent positives: nausea and vomiting. The symptoms are described as crampy. Severity of pain: At its worst the pain was mild. The patient has experienced similar episodes in the past. The patient has been recently seen by a physician: with different complaint(s), recent influenza. 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 - Social history:: Smoking status: Patient/guardian denies using tobacco. - Ebola Screening: : Patient negative for fever greater than or equal to 101.5 degrees Fahrenheit, and additional compatible Ebola Virus Disease symptoms Patient denies exposure to infectious person Patient denies travel to an Ebola-affected area in the 21 days before illness onset No symptoms or risks identified at this time. ROS: 10:13 Constitutional: Negative for fever, chills, and weight loss, Eyes: Negative for injury, snw pain, redness, and discharge, ENT: Negative for injury, pain, and discharge, Neck: Negative for injury, pain, and swelling, Cardiovascular: Negative for chest pain, palpitations, and edema, Respiratory: Negative for shortness of breath, cough, wheezing, and pleuritic chest pain, Back: Negative for injury and pain, : Negative for injury, bleeding, discharge, and swelling, MS/Extremity: Negative for injury and deformity, Skin: Negative for injury, rash, and discoloration, Neuro: Negative for headache, weakness, numbness, tingling, and seizure. 10:13 Abdomen/GI: Positive for nausea, vomiting, abdominal cramps, Negative for diarrhea, constipation. Exam: 10:12 Constitutional: This is a well developed, well nourished patient who is awake, alert, snw and in no acute distress. Head/Face: Normocephalic, atraumatic. Eyes: Pupils equal round and reactive to light, extra-ocular motions intact. Lids and lashes normal. Conjunctiva and sclera are non-icteric and not injected. Cornea within normal limits. Periorbital areas with no swelling, redness, or edema. ENT: Nares patent. No nasal discharge, no septal abnormalities noted. Tympanic membranes are normal and external auditory canals are clear. Oropharynx with no redness, swelling, or masses, exudates, or evidence of obstruction, uvula midline. Mucous membranes moist. Neck: Trachea midline, no thyromegaly or masses palpated, and no cervical lymphadenopathy. Supple, full range of motion without nuchal rigidity, or vertebral point tenderness. No Meningismus. Chest/axilla: Normal chest wall appearance and motion. Nontender with no deformity. No lesions are appreciated. Cardiovascular: Regular rate and rhythm with a normal S1 and S2. + Murmur, grade 2/6. No gallops or rubs. Normal PMI, no JVD. No pulse deficits. Respiratory: Lungs have equal breath sounds bilaterally, clear to auscultation and percussion. No rales, rhonchi or wheezes noted. No increased work of breathing, no retractions or nasal flaring. Back: No spinal tenderness. No costovertebral tenderness. Full range of motion. Skin: Warm, dry with normal turgor. Normal color with no rashes, no lesions, and no evidence of cellulitis. MS/ Extremity: Pulses equal, no cyanosis. Neurovascular intact. Full, normal range of motion. Neuro: Awake and alert, GCS 15, oriented to person, place, time, and situation. Cranial nerves II-XII grossly intact. Motor strength 5/5 in all extremities. Sensory grossly intact. Cerebellar exam normal. Normal gait. 10:12 Abdomen/GI: Inspection: abdomen appears normal, Bowel sounds: normal, Palpation: mild abdominal tenderness, in all quadrants. Vital Signs: 10:00 BP 124 / 43; Pulse 88; Resp 16; Temp 98.8; Pulse Ox 100% on R/A; Weight 76.66 kg; ch Height 5 ft. (152.40 cm); Pain 6/10; 11:03 BP 120 / 72; Pulse 71; Resp 16; Temp 98.6; Pulse Ox 99% on R/A; Pain 5/10; ch 10:00 Body Mass Index 33.01 (76.66 kg, 152.40 cm) ch MDM: 09:53 Patient medically screened. snw 10:15 Data reviewed: vital signs, nurses notes. Data interpreted: Pulse oximetry: on room air snw is 100 %. Interpretation: normal. Counseling: I had a detailed discussion with the patient and/or guardian regarding: the historical points, exam findings, and any diagnostic results supporting the discharge/admit diagnosis, lab results. 10:30 Special discussion: Based on the patient's Hx, exam, and Dx evaluation, there is no snw indication for emergent surgery or inpatient Tx. It is understood by the patient/guardian that if the Sx's persist or worsen they need to return immediately for re-evaluation. Based on the history and exam findings, there is no indication for further emergent testing or inpatient evaluation. I discussed with the patient/guardian the need to see the OB Gyne specialist for further evaluation of the symptoms. 10/06 10:10 Order name: Urine Culture snw 10/06 10:10 Order name: Urine Microscopic Only w 10/06 10:10 Order name: Urine Test (obtain specimen); Complete Time: 10:17 snw 10/06 10:10 Order name: Urine Dipstick-Ancillary (obtain specimen); Complete Time: 10:17 snw 10/06 10:42 Order name: Urine Dipstick--Ancillary (enter results) eb 10/06 10:42 Order name: Urine --Ancillary (enter results) eb Administered Medications: No medications were administered Disposition: 17:51 Co-signature as Attending Physician, Brian Price MD. ma2 Disposition: 10/06/18 10:32 Discharged to Home. Impression: Functional dyspepsia, state, incidental. - Condition is Stable. - Discharge Instructions: Nausea, Adult, First Trimester of , Ktaa-yx-Ihsi, and Influenza. - Medication Reconciliation Form, Thank You Letter, Antibiotic Education, Prescription Opioid Use form. - Follow up: Wagner Pressley MD; When: 1 week; Reason: Recheck today's complaints, Continuance of care, Re-evaluation by your physician. Signatures: Dispatcher [employer] EDRuma Parsons RN RN ch Debra Gross, ELECTRIC DETECTOR OPERATOR-C ELECTRIC DETECTOR OPERATOR-Cs[facility] Brian Price MD MD ma2 Corrections: (The following items were deleted from the chart) 11:03 10:32 10/06/2018 10:32 Discharged to Home. Impression: Functional dyspepsia; ch state, incidental. Condition is Stable. Forms are Medication Reconciliation Form, Thank You Letter, Antibiotic Education, Prescription Opioid Use. Follow up: Wagner Pressley; When: 1 week; Reason: Recheck today's complaints, Continuance of care, Re-evaluation by your physician. snw
[2018-10-06 10:59] LABS: Urine Bacteria <20 /HPF (<20); Urine Culture Reflex Order NOT NEEDED; Urine RBC <5 /HPF (NONE SEEN)
[2018-10-06 11:17] VITALS: BP 124/43; TEMP 98.8; O2SAT 100
[2018-10-06 12:00] LABS: Urine Blood NEGATIVE (NEG); Urine Glucose NEGATIVE (NEG); Urine Protein NEGATIVE (NEG); Urine Specific Gravity 1.025 (1.005-1.030); Urine pH 6.5 (5.0-7.0)
== END 2018-10-06 11:03 | disposition home or self-care (01) ==
LOC: ER 09:35
DX: K30 Functional dyspepsia (principal); Z33.1 Pregnant state, incidental
CPT/HCPCS: 81003; 81015; 81025; 87086; 87088; 99283

== ENCOUNTER 2018-11-11 11:01 | Emergency (ER) | payer OTHER, SELFPAY ==
--- OUTSIDE RECORDS SUMMARY | 2018-11-11 11:04 | XMS REPORT ---
:1995 [facility] [address] [place] [address] Care Team Providers Name Role Phone Unavailable Unavailable Unavailable Problems This patient has no known problems. Allergies, Adverse Reactions, Alerts This patient has no known allergies or adverse reactions. Medications This patient has no known medications.
[2018-11-11] MEDS ORDERED: NA CHLORIDE 0.9% 1,000 ML ONE (11:44)
[2018-11-11 12:02] LABS: Absolute Lymphocytes (CBC) 1.2 K/uL (0.7-4.9); Absolute Monocytes 0.7 K/uL (0.1-1.3); Absolute Neutrophil 7.7 K/uL (1.8-8.0); Basophils % 0.4 % (0-1.3); Eosinophils % 0.9 % (0-4.4); Hematocrit 34.6 % (36.0-45.0); Lymphocytes % 12.3 % (15.3-44.8); MPV 8.5 fL (7.6-11.3); Monocytes % 7.1 % (3.3-12.3); RBC Red Blood Cell Count 4.04 M/uL (3.86-4.86)
[2018-11-11 12:26] LABS: Urine Blood NEGATIVE (NEG); Urine Glucose NEGATIVE (NEG); Urine Protein NEGATIVE (NEG); Urine Specific Gravity 1.025 (1.005-1.030)
[2018-11-11 12:40] LABS: BUN Blood Urea Nitrogen 5 mg/dL (7-18); Bicarbonate 24 mmol/L (21-32); Glucose Level 84 mg/dL (74-106); HCG, Quantitative 72034 mIU/mL (1-3); Potassium 3.7 mmol/L (3.5-5.1); Sodium Level 139 mmol/L (136-145)
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
--- NOTE | 2018-11-11 12:44 | EDPHYS ---
Physician Documentation [facility] Name: Minh Gallardo Age: 23 yrs Sex: Female : 1995 Arrival Date: 11/11/2018 Time: 11:03 Bed 5 Private MD: RENO OLIVIER ED Physician Epi Fallon HPI: 11/11 11:46 This 23 yrs old Black Female presents to ER via Ambulatory with complaints of Abdominal leanna Pain, BLEEDING, . 11:46 The patient presents with abdominal pain in the lower abdomen. Onset: The leanna symptoms/episode began/occurred 2 day(s) ago. The patient presents with vaginal bleeding that is light. Onset: The symptoms/episode began/occurred 2 day(s) ago. Modifying factors: The symptoms are alleviated by nothing, the symptoms are aggravated by nothing. Severity of symptoms: At their worst the symptoms were mild, in the emergency department the symptoms are unchanged. The estimated gestational age is 11 weeks. 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 - Social history:: Smoking status: Patient/guardian denies using tobacco. - Ebola Screening: : No symptoms or risks identified at this time. - Family history:: not pertinent. ROS: 11:46 Constitutional: Negative for fever, chills, and weight loss, Eyes: Negative for injury, leanna pain, redness, and discharge, ENT: Negative for injury, pain, and discharge, Neck: Negative for injury, pain, and swelling, Cardiovascular: Negative for chest pain, palpitations, and edema, Respiratory: Negative for shortness of breath, cough, wheezing, and pleuritic chest pain, Back: Negative for injury and pain, MS/Extremity: Negative for injury and deformity, Skin: Negative for injury, rash, and discoloration, Neuro: Negative for headache, weakness, numbness, tingling, and seizure, Psych: Negative for depression, anxiety, suicide ideation, homicidal ideation, and hallucinations, Allergy/Immunology: Negative for hives, rash, and allergies, Endocrine: Negative for neck swelling, polydipsia, polyuria, polyphagia, and marked weight changes, Hematologic/Lymphatic: Negative for swollen nodes, abnormal bleeding, and unusual bruising. 11:46 Abdomen/GI: Positive for abdominal pain, abdominal distension. 11:46 : Positive for vaginal bleeding. Exam: 11:46 Constitutional: This is a well developed, well nourished patient who is awake, alert, leanna and in no acute distress. Head/Face: Normocephalic, atraumatic. Eyes: Pupils equal round and reactive to light, extra-ocular motions intact. Lids and lashes normal. Conjunctiva and sclera are non-icteric and not injected. Cornea within normal limits. Periorbital areas with no swelling, redness, or edema. ENT: Nares patent. No nasal discharge, no septal abnormalities noted. Tympanic membranes are normal and external auditory canals are clear. Oropharynx with no redness, swelling, or masses, exudates, or evidence of obstruction, uvula midline. Mucous membranes moist. Neck: Trachea midline, no thyromegaly or masses palpated, and no cervical lymphadenopathy. Supple, full range of motion without nuchal rigidity, or vertebral point tenderness. No Meningismus. Chest/axilla: Normal chest wall appearance and motion. Nontender with no deformity. No lesions are appreciated. Cardiovascular: Regular rate and rhythm with a normal S1 and S2. No gallops, murmurs, or rubs. Normal PMI, no JVD. No pulse deficits. Respiratory: Lungs have equal breath sounds bilaterally, clear to auscultation and percussion. No rales, rhonchi or wheezes noted. No increased work of breathing, no retractions or nasal flaring. Back: No spinal tenderness. No costovertebral tenderness. Full range of motion. Skin: Warm, dry with normal turgor. Normal color with no rashes, no lesions, and no evidence of cellulitis. MS/ Extremity: Pulses equal, no cyanosis. Neurovascular intact. Full, normal range of motion. Neuro: Awake and alert, GCS 15, oriented to person, place, time, and situation. Cranial nerves II-XII grossly intact. Motor strength 5/5 in all extremities. Sensory grossly intact. Cerebellar exam normal. Normal gait. Psych: Awake, alert, with orientation to person, place and time. Behavior, mood, and affect are within normal limits. 11:46 Abdomen/GI: Inspection: gravid appearance, Bowel sounds: normal, Palpation: abdomen is soft and non-tender, Liver: no appreciated palpable abnormalities, Hernia: not appreciated. Vital Signs: 11:10 BP 124 / 74; Pulse 101; Resp 16; Temp 98.2; Pulse Ox 97% on R/A; Weight 86.18 kg; la1 Height 5 ft. 0 in. (152.40 cm); 11:10 Body Mass Index 37.11 (86.18 kg, 152.40 cm) la1 MDM: 11:23 Patient medically screened. [facility] 11:49 Data reviewed: vital signs, nurses notes, lab test result(s), radiologic studies, [facility] ultrasound. 11/11 11:25 Order name: Quantitative Hcg; Complete Time: 12:43 [facility] 11/11 11:25 Order name: Abo/rh Typing; Complete Time: 12:43 [facility] 11/11 11:25 Order name: Basic Metabolic Panel; Complete Time: 12:43 [facility] 11/11 11:25 Order name: CBC with Diff; Complete Time: 12:23 [facility] 11/11 11:25 Order name: Urine Culture [facility] 11/11 11:39 Order name: Urine Dipstick--Ancillary (enter results); Complete Time: 12:43 11/11 11:25 Order name: Urine Test (obtain specimen); Complete Time: 11:29 [facility] 11/11 11:25 Order name: IV Saline Lock; Complete Time: 11:29 [facility] 11/11 11:25 Order name: Labs collected and sent; Complete Time: 13:09 [facility] 11/11 11:25 Order name: NPO; Complete Time: 11:29 [facility] 11/11 11:39 Order name: Urine --Ancillary (enter results); Complete Time: 12:43 11/11 12:03 Order name: Matter Eval Tm 1 EDVT 11/11 11:25 Order name: Urine Dipstick-Ancillary (obtain specimen); Complete Time: 11:29 [facility] Administered Medications: 12:20 Drug: NS 0.9% 1000 ml Route: IV; Rate: 1 bolus; Site: right antecubital; iw Disposition: 11/11/18 12:43 Discharged to Home. Impression: related conditions, unspecified, first trimester, related conditions, unspecified, second trimester, related conditions, unspecified, third trimester, Threatened . - Condition is Stable. - Discharge Instructions: Threatened Miscarriage, Vaginal Bleeding During , First Trimester, Vaginal Bleeding During , Second Trimester, First Trimester of , [id number], First Trimester of , Threatened Miscarriage, Zawe-uj-Isic, Pelvic Rest, Vaginal Bleeding During , Second Trimester, Lyrq-gq-Onru. - Prescriptions for Diclegis 10- 10 mg Oral tablet,delayed release (DR/EC) - take 1 tablet by ORAL route 3 times per day and 2 tablets at bedtime; 60 tablet. Vitamin 27- 0.8 mg Oral Tablet - take 1 tablet by ORAL route once daily; 30 tablet. - Medication Reconciliation Form, Thank You Letter, Antibiotic Education, Prescription Opioid Use form. - Follow up: Private Physician; When: 2 - 3 days; Reason: Recheck today's complaints, Continuance of care, Re-evaluation by your physician. Follow up: Mini Rekhi; When: 2 - 3 days; Reason: Recheck today's complaints, Continuance of care, Re-evaluation by your physician. - Problem is new. - Symptoms have improved. Signatures: Dispatcher [employer] [facility] Epi Fallon MD MD cha Williams, Irene, RN RN iw Spike Fuller RN RN laElizabeth Hope RN RN hb Corrections: (The following items were deleted from the chart) 12:03 11:25 Transvaginal Ob+US.RAD.BRZ ordered. [facility] 13:23 12:43 11/11/2018 12:43 Discharged to Home. Impression: related conditions, hb unspecified, first trimester; related conditions, unspecified, second trimester; related conditions, unspecified, third trimester; Threatened . Condition is Stable. Discharge Instructions: Threatened Miscarriage, Vaginal Bleeding During , First Trimester, Vaginal Bleeding During , Second Trimester, First Trimester of , Cmsu-sk-Oyta, First Trimester of , Threatened Miscarriage, Umsr-jv-Fkph, Pelvic Rest, Vaginal Bleeding During , Second Trimester, Kjbk-lr-Vgig. Prescriptions for Diclegis 10-10 mg Oral tablet,delayed release (DR/EC) - take 1 tablet by ORAL route 3 times per day and 2 tablets at bedtime; 60 tablet, Vitamin 27-0.8 mg Oral Tablet - take 1 tablet by ORAL route once daily; 30 tablet. and Forms are Medication Reconciliation Form, Thank You Letter, Antibiotic Education, Prescription Opioid Use. Follow up: Private Physician; When: 2 - 3 days; Reason: Recheck today's complaints, Continuance of care, Re-evaluation by your physician. Follow up: Mini Rekhi; When: 2 - 3 days; Reason: Recheck today's complaints, Continuance of care, Re-evaluation by your physician. Problem is new. Symptoms have improved. leanna
[2018-11-11 13:36] VITALS: BP 124/74; TEMP 98.2; O2SAT 97
--- NOTE | 2018-11-11 15:00 | RAD REPORT ---
EXAM DESCRIPTION: US - Matter Alex Tm 1 - 11/11/2018 12:02 pm CLINICAL HISTORY: Abd cramping, ;Vaginal bleeding Early . COMPARISON: Transvaginal OB dated 06/08/2016 FINDINGS: A single gestational sac is seen within the uterus. The shape of the sac is within normal limits for gestational age. Within the sac is a single pole with crown-rump length of 4.2 cm, c orrelating to estimated gestational age of 11 weeks 1 day gestational age. Heart rate is 166 BPM. The placenta is not yet developed / visualized due to early gestational age. The maternal adnexa and left ovary are within normal limits. Normal Doppler blood flow was demonstrat ed to the left ovary. The right ovary is obscured by bowel gas. IMPRESSION: Single live early intrauterine gestation with estimated gestational age of 11 weeks 1 da y. No unusual or unexpected finding.
== END 2018-11-11 13:23 | disposition home or self-care (01) ==
LOC: ER 11:01
DX: O20.0 Threatened abortion (principal); Z3A.11 11 weeks gestation of pregnancy; F32.9 Major depressive disorder, single episode, unspecified
CPT/HCPCS: 36415; 76801; 80048; 81003; 81025; 84702; 85025; 86900; 86901; 87086; 87088; 99283; J7030

== ENCOUNTER 2018-11-25 12:01 | Emergency (ER) | payer OTHER ==
--- OUTSIDE RECORDS SUMMARY | 2018-11-25 12:03 | XMS REPORT ---
:1995 [facility] [place] [address] Care Team Providers Name Role Phone Unavailable Unavailable Unavailable Problems This patient has no known problems. Allergies, Adverse Reactions, Alerts This patient has no known allergies or adverse reactions. Medications This patient has no known medications.
[2018-11-25 13:08] LABS: Urine Blood NEGATIVE (NEG); Urine Glucose NEGATIVE (NEG); Urine Protein NEGATIVE (NEG); Urine Specific Gravity 1.015 (1.005-1.030)
[2018-11-25] MEDS ORDERED: ACETAMINOPHEN 325 MG TABLET ONE (13:59)
[2018-11-25] MEDS ORDERED: CYCLOBENZAPRINE 10 MG TAB ONE (13:59)
[2018-11-25] MEDS ORDERED: NA CHLORIDE 0.9% 1,000 ML ONE (13:59)
[2018-11-25 14:01] LABS: Urine Bacteria <20 /HPF (<20); Urine Culture Reflex Order NOT NEEDED; Urine RBC <5 /HPF (NONE SEEN)
[2018-11-25 14:23] LABS: Absolute Lymphocytes (CBC) 1.7 K/uL (0.7-4.9); Absolute Monocytes 0.5 K/uL (0.1-1.3); Absolute Neutrophil 4.9 K/uL (1.8-8.0); Basophils % 0.7 % (0-1.3); Eosinophils % 2.5 % (0-4.4); Hematocrit 35.1 % (36.0-45.0); Lymphocytes % 23.5 % (15.3-44.8); MPV 8.8 fL (7.6-11.3); Monocytes % 6.3 % (3.3-12.3); RBC Red Blood Cell Count 4.07 M/uL (3.86-4.86)
--- NOTE | 2018-11-25 14:39 | RAD REPORT ---
EXAM DESCRIPTION: US - Abdomen Exam Limited - 11/25/2018 2:26 pm CLINICAL HISTORY: Abdominal pain. COMPARISON: None. FINDINGS: The gallbladder wall is not thickened. A gallstone is not seen. The biliary tree is normal caliber. IMPRESSION: Unremarkable gallbladder ultrasound.
[2018-11-25 14:42] LABS: ALT/SGPT 12 U/L (12-78); AST/SGOT 13 U/L (15-37); Alkaline Phosphatase 41 U/L (45-117); BUN Blood Urea Nitrogen 4 mg/dL (7-18); Bicarbonate 23 mmol/L (21-32); Bilirubin Direct < 0.1 mg/dL (0-0.2); Bilirubin Total 0.3 mg/dL (0.2-1.0); Glucose Level 68 mg/dL (74-106); Lipase 61 U/L (73-393); Potassium 4.2 mmol/L (3.5-5.1); Protein, Total 6.9 g/dL (6.4-8.2); Sodium Level 141 mmol/L (136-145)
--- NOTE | 2018-11-25 15:09 | ER ---
Nurse's Notes [facility] Name: Minh Gallardo Age: 23 yrs Sex: Female : 1995 Arrival Date: 11/25/2018 Time: 12:09 Bed 24 Private MD: KYUNG OLIVIER Diagnosis: Low back pain Presentation: 11/25 12:14 Presenting complaint: Patient states: low back pain, dark yellow urination x 1 day. sv Reports frequent UTIs. Transition of care: patient was not received from another setting of care. Onset of symptoms was November 24, 2018. Care prior to arrival: None. 12:14 Method Of Arrival: Ambulatory sv 12:14 Acuity: MARY 4 sv 15:15 Risk Assessment: Do you want to hurt yourself or someone else? Patient reports no la1 desire to harm self or others. Initial Sepsis Screen: Does the patient meet any 2 criteria? No. Patient's initial sepsis screen is negative. Does the patient have a suspected source of infection? No. Patient's initial sepsis screen is negative. Historical: - Allergies: 12:15 No Known Allergies; sv - PMHx: 12:15 Depression; sv - PSHx: 12:15 Appendectomy; oophorectomy; sv - Immunization history:: Adult Immunizations. - Social history:: Smoking status: Patient/guardian denies using tobacco. - Ebola Screening: : No symptoms or risks identified at this time. Screenin:14 Abuse screen: Denies threats or abuse. Nutritional screening: No deficits noted. la1 Tuberculosis screening: No symptoms or risk factors identified. Fall Risk None identified. Assessment: 13:13 General: Appears in no apparent distress. Behavior is calm, cooperative. Pain: la1 Complains of pain in back. Neuro: Level of Consciousness is awake, alert, obeys commands, Oriented to person, place, time, situation. Cardiovascular: Capillary refill < 3 seconds is brisk in bilateral Patient's skin is warm and dry. Respiratory: Airway is patent Respiratory effort is even, unlabored, Respiratory pattern is regular, symmetrical, Breath sounds are clear bilaterally. GI: No signs and/or symptoms were reported involving the gastrointestinal system. : No signs and/or symptoms were reported regarding the genitourinary system. Vital Signs: 12:15 BP 122 / 77; Pulse 79; Resp 18; Temp 97.5; Pulse Ox 99% ; Weight 86.18 kg; Height 5 ft. sv 0 in. (152.40 cm); Pain 9/10; 15:14 BP 124 / 74; Pulse 71; Resp 16; Pulse Ox 98% on R/A; la1 12:15 Body Mass Index 37.11 (86.18 kg, 152.40 cm) sv Vitals: 13:22 Heart Tones 157. la1 ED Course: 12:09 Patient arrived in ED. mr 12:09 KYUNG OLIVIER is Private Physician. mr 12:15 Triage completed. sv 12:15 Arm band placed on. sv 12:21 Haris Haney PA is PHCP. [facility] 12:21 Epi Fallon MD is Attending Physician. [facility] 12:43 Spike Fuller, RN is Primary Nurse. la1 13:14 Call light in reach. la1 14:14 No provider procedures requiring assistance completed. Inserted saline lock: 22 gauge la1 in left forearm, using aseptic technique. 14:26 US Abdomen Limited In Process Unspecified. EDMS 14:27 Ultrasound completed. Patient tolerated well. 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 sg3 15:15 IV discontinued, intact, bleeding controlled, No redness/swelling at site. Pressure la1 dressing applied. Administered Medications: 13:51 Drug: Flexeril 10 mg Route: PO; la1 15:16 Follow up: Response: No adverse reaction la1 13:51 Drug: Tylenol 650 mg Route: PO; la1 15:16 Follow up: Response: No adverse reaction la1 13:51 Drug: NS 0.9% 1000 ml Route: IV; Rate: 1 bolus; Site: left forearm; la1 15:16 Follow up: IV Status: Completed infusion la1 Outcome: 15:07 Discharge ordered by . [facility] 15:15 Discharged to home via ambulance. la1 15:15 Condition: stable 15:15 Discharge instructions given to patient, Instructed on discharge instructions, follow up and referral plans. medication usage, Demonstrated understanding of instructions, follow-up care, medications, Prescriptions given X 1. 15:16 Patient left the ED. la1 Signatures: Dispatcher [employer] EDMS Kyung Milton, YOLA RN Haris Haney PA PA jmm Rivera, Mary mr Spike Fuller RN RN la1 Chano, Kayce sg3
--- NOTE | 2018-11-25 15:09 | EDPHYS ---
Physician Documentation [facility] Name: Minh Gallardo Age: 23 yrs Sex: Female : 1995 Arrival Date: 11/25/2018 Time: 12:09 Bed 24 Private MD: KYUNG OLIVIER ED Physician Epi Fallon HPI: 11/25 13:10 This 23 yrs old Black Female presents to ER via Ambulatory with complaints of Back Pain.jmm 13:10 The patient presents with pain that is acute, with no known mechanism of injury. Onset: jm The symptoms/episode began/occurred gradually, 1 day(s) ago. This is a 23 year old female with a history of depression and currently 13 weeks IUP that presents to the ED with complaints of lower back pain beginning 1 days ago. Patient denies vaginal bleeding, denies vaginal discharge. Denies fever, denies vomiting. Patient states she had a similar episode with a previous UTI. . 13:10 Patient denies vomiting or diarrhea. jmm Historical: - Allergies: 12:15 No Known Allergies; sv - PMHx: 12:15 Depression; sv - PSHx: 12:15 Appendectomy; oophorectomy; sv - Immunization history:: Adult Immunizations. - Social history:: Smoking status: Patient/guardian denies using tobacco. - Ebola Screening: : No symptoms or risks identified at this time. ROS: 13:10 Constitutional: Negative for fever, chills, and weight loss, Eyes: Negative for injury, jmm pain, redness, and discharge, ENT: Negative for injury, pain, and discharge, Neck: Negative for injury, pain, and swelling, Cardiovascular: Negative for chest pain, palpitations, and edema, Respiratory: Negative for shortness of breath, cough, wheezing, and pleuritic chest pain, Abdomen/GI: Negative for abdominal pain, nausea, vomiting, diarrhea, and constipation, Back: Negative for injury and pain, MS/Extremity: Negative for injury and deformity, Skin: Negative for injury, rash, and discoloration, Neuro: Negative for headache, weakness, numbness, tingling, and seizure, Psych: Negative for depression, anxiety, suicide ideation, homicidal ideation, and hallucinations. 13:10 All other systems are negative. Exam: 13:10 Constitutional: This is a well developed, well nourished patient who is awake, alert, jmm and in no acute distress. Head/Face: atraumatic. Eyes: EOMI, no conjunctival erythema appreciated ENT: Moist Mucus Membranes Neck: Trachea midline, Supple Chest/axilla: Normal chest wall appearance and motion. Cardiovascular: Regular rate and rhythm. No edema appreciated Respiratory: Normal respirations, no respiratory distress appreciated Abdomen/GI: Non distended, soft Back: Normal ROM Skin: General appearance color normal MS/ Extremity: Moves all extremities, no obvious deformities appreciated, no edema noted to the lower extremities Neuro: Awake and alert, normal gait Vital Signs: 12:15 BP 122 / 77; Pulse 79; Resp 18; Temp 97.5; Pulse Ox 99% ; Weight 86.18 kg; Height 5 ft. sv 0 in. (152.40 cm); Pain 9/10; 15:14 BP 124 / 74; Pulse 71; Resp 16; Pulse Ox 98% on R/A; la1 12:15 Body Mass Index 37.11 (86.18 kg, 152.40 cm) sv MDM: 12:[address] [facility] 14:59 Data reviewed: vital signs, nurses notes. Counseling: I had a detailed discussion with jessica the patient and/or guardian regarding: the historical points, exam findings, and any diagnostic results supporting the discharge/admit diagnosis, lab results, radiology results, the need for outpatient follow up, to return to the emergency department if symptoms worsen or persist or if there are any questions or concerns that arise at home. ED course: Patient is alert and non toxic in appearance in the ED. Patient states she feels much better. Symptoms appear to be due to musculoskeletal back pain. Patient is advised to return to the ED if she develops worsening pain, fever, vomiting, vaginal bleeding or any other concerning symptoms. . 11/25 12:27 Order name: Urine Dipstick--Ancillary (enter results); Complete Time: 13:09 11/25 12:27 Order name: Urine --Ancillary (enter results); Complete Time: 13:09 11/25 13:19 Order name: Basic Metabolic Panel; Complete Time: 14:44 [facility] 11/25 13:19 Order name: CBC with Diff; Complete Time: 14:32 [facility] 11/25 13:19 Order name: Creatinine for Radiology; Complete Time: 14:44 [facility] 11/25 13:19 Order name: Hepatic Function; Complete Time: 14:44 [facility] 11/25 13:09 Order name: Heart Tones; Complete Time: 13:18 [facility] 11/25 13:19 Order name: Lipase; Complete Time: 14:44 [facility] 11/25 13:19 Order name: IV Saline Lock; Complete Time: 13:51 [facility] 11/25 13:20 Order name: US Abdomen Limited; Complete Time: 14:44 [facility] 11/25 13:34 Order name: Urine Microscopic Only; Complete Time: 14:04 [facility] 11/25 13:19 Order name: Labs collected and sent; Complete Time: 14:15 [facility] Administered Medications: 13:51 Drug: Flexeril 10 mg Route: PO; la1 15:16 Follow up: Response: No adverse reaction la1 13:51 Drug: Tylenol 650 mg Route: PO; la1 15:16 Follow up: Response: No adverse reaction la1 13:51 Drug: NS 0.9% 1000 ml Route: IV; Rate: 1 bolus; Site: left forearm; la1 15:16 Follow up: IV Status: Completed infusion la1 Disposition: 11/26 07:52 Co-signature as Attending Physician, Epi Fallon MD I agree with the assessment and leanna plan of care. Disposition: 11/25/18 15:07 Discharged to Home. Impression: Low back pain. - Condition is Stable. - Discharge Instructions: Back Pain, Adult. - Prescriptions for Cyclobenzaprine 10 mg Oral Tablet - take 1 tablet by ORAL route every 8 hours As needed; 30 tablet. - Medication Reconciliation Form, Thank You Letter, Antibiotic Education, Prescription Opioid Use, Work release form form. - Follow up: Private Physician; When: 2 - 3 days; Reason: Recheck today's complaints, Continuance of care, Re-evaluation by your physician. Signatures: Dispatcher [employer] Kyung Padilla RN RN sv Anderson, Corey, MD MD cha Mickail, Joel, PA PA Spike Cardenas RN RN la1 Corrections: (The following items were deleted from the chart) 11/25 15:16 15:07 11/25/2018 15:07 Discharged to Home. Impression: Low back pain. Condition is la1 Stable. Forms are Medication Reconciliation Form, Thank You Letter, Antibiotic Education, Prescription Opioid Use. Follow up: Private Physician; When: 2 - 3 days; Reason: Recheck today's complaints, Continuance of care, Re-evaluation by your physician. jessica
[2018-11-25 15:23] VITALS: TEMP 97.5
[2018-11-25 15:24] VITALS: BP 124/74; O2SAT 98
== END 2018-11-25 15:16 | disposition home or self-care (01) ==
LOC: ER 12:01
DX: O26.891 Other specified pregnancy related conditions, first trimester (principal); M54.5 Low back pain; Z3A.13 13 weeks gestation of pregnancy; O99.341 Other mental disorders complicating pregnancy, first trimester; F32.9 Major depressive disorder, single episode, unspecified
CPT/HCPCS: 36415; 76705; 80048; 80076; 81003; 81015; 81025; 83690; 85025; 96360; 99284; J7030

== ENCOUNTER 2019-06-01 00:06 | Emergency (ER) | payer OTHER ==
[2019-06-01 01:05] LABS: Urine Blood 3+ (NEG); Urine Glucose NEGATIVE (NEG); Urine Protein 1+ (NEG); Urine Specific Gravity 1.025 (1.005-1.030)
--- NOTE | 2019-06-01 01:13 | ER ---
Nurse's Notes [facility] Name: Minh Gallardo Age: 23 yrs Sex: Female : 1995 Arrival Date: 06/01/2019 Time: 00:17 Bed 17 Private MD: Diagnosis: Malaise and fatigue;Essential (primary) hypertension Presentation: 06/01 00:28 Presenting complaint: Patient states: she has been having severe aching in her neck, aa1 head and back since yesterday. Denies fever or any other symptoms. Transition of care: patient was not received from another setting of care. Onset of symptoms was May 30, 2019. Risk Assessment: Do you want to hurt yourself or someone else? Patient reports no desire to harm self or others. Initial Sepsis Screen: Does the patient meet any 2 criteria? No. Patient's initial sepsis screen is negative. Does the patient have a suspected source of infection? No. Patient's initial sepsis screen is negative. Care prior to arrival: None. 00:28 Method Of Arrival: Ambulatory aa1 00:28 Acuity: MARY 4 aa1 Triage Assessment: 00:40 Pain: Also complains of no other associated symptoms. rr5 00:40 Headache History: Denies prior headaches. General: Appears in no apparent distress. rr5 uncomfortable, Behavior is calm, cooperative, appropriate for age. Pain: Complains of pain in head neck and back. 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 - Social history:: Smoking status: Patient uses tobacco products, denies chronic smoking, but will smoke occasionally. - Family history:: not pertinent. - Ebola Screening: : Patient denies exposure to infectious person Patient denies travel to an Ebola-affected area in the 21 days before illness onset. Screenin:12 Abuse screen: Denies threats or abuse. Denies injuries from another. Nutritional rr5 screening: No deficits noted. Tuberculosis screening: No symptoms or risk factors identified. Fall Risk None identified. Total Manrique Fall Scale indicates No Risk (0-24 pts). Assessment: 00:40 General: Appears in no apparent distress. uncomfortable, Behavior is calm, cooperative, rr5 appropriate for age. 00:40 Pain: Complains of pain in head neck and back Pain does not radiate. Pain currently is rr5 10 out of 10 on a pain scale. Quality of pain is described as aching, Pain began gradually, Is intermittent. Neuro: Level of Consciousness is awake, alert, obeys commands, Oriented to person, place, time, situation, Appropriate for age Reports headache neck pain and back.. Cardiovascular: Capillary refill < 3 seconds Patient's skin is warm and dry. Respiratory: Airway is patent Respiratory effort is even, unlabored, Respiratory pattern is regular, symmetrical. GI: Abdomen is round. : No signs and/or symptoms were reported regarding the genitourinary system. EENT: No signs and/or symptoms were reported regarding the EENT system. Derm: Skin is intact, Skin temperature is warm. Musculoskeletal: Circulation, motion, and sensation intact. Capillary refill < 3 seconds. 01:50 Reassessment: Patient appears in no apparent distress at this time. Patient is alert, rr5 oriented x 3, equal unlabored respirations, skin warm/dry/pink. ED provider spoke to patient, agreed for the plan of care and discharge instruction. 02:05 Reassessment: Patient appears in no apparent distress at this time. Patient is alert, rr5 oriented x 3, equal unlabored respirations, skin warm/dry/pink. patient wants to leave now, denies any discomfort or dizziness. 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 discharge instruction given and explained without complaints made, verbalized understanding. Vital Signs: 00:31 BP 173 / 112; Pulse 70; Resp 16; Temp 97.6; Pulse Ox 100% on R/A; Weight 90.72 kg; aa1 Height 4 ft. 0 in. (121.92 cm); Pain 10/10; 01:11 BP 152 / 96; Pulse 75; Resp 16; Pulse Ox 98% ; rr5 01:55 BP 162 / 104; Pulse 70; Resp 18; Pulse Ox 100% on R/A; rr5 00:31 Body Mass Index 61.03 (90.72 kg, 121.92 cm) aa1 ED Course: 00:17 Patient arrived in ED. mr 00:18 Epi Fallon MD is Attending Physician. [facility] 00:29 Triage completed. aa1 00:30 Miah Gunter, YOLA is Primary Nurse. rr5 00:31 Arm band placed on right wrist. Patient placed in an exam room, on a stretcher. aa1 00:40 Patient has correct armband on for positive identification. Bed in low position. Call rr5 light in reach. 01:12 Harsha Casanova MD is Referral Physician. [facility] 02:00 No provider procedures requiring assistance completed. Patient did not have IV access rr5 during this emergency room visit. Administered Medications: 01:56 Drug: Tylenol #3 (300 mg-30 mg) 2 tabs {Note: rass 0.} Route: PO; rr5 02:05 Follow up: Response: No adverse reaction; Medication administered at discharge.; RASS: rr5 Alert and Calm (0) Outcome: 01:13 Discharge ordered by . [facility] 02:00 Discharged to home ambulatory, with family. rr5 02:00 Condition: stable 02:00 Discharge instructions given to patient, Instructed on discharge instructions, follow up and referral plans. medication usage, Demonstrated understanding of instructions, follow-up care, medications, Prescriptions given X 1. 02:05 Patient left the ED. rr5 Signatures: Farida Ramírez, RN RN aa Epi Fallon MD MD cha Rivera, Mary mr Miah Gunter, RN RN rr5
--- NOTE | 2019-06-01 01:13 | EDPHYS ---
Physician Documentation [facility] Name: Minh Gallardo Age: 23 yrs Sex: Female : 1995 Arrival Date: 06/01/2019 Time: 00:17 Bed 17 Private MD: ED Physician Epi Fallon HPI: 06/01 00:27 This 23 yrs old Black Female presents to ER via Unassigned with complaints of Body leanna aches, Headache. 00:27 The patient complains of pain to the top of head, left frontal area, left side of the leanna back of head, left occipital area, left base of the skull, right frontal area, right side of the back of head, right occipital area and right base of the skull. The patient describes the headache as aching. Onset: The symptoms/episode began/occurred 1 day(s) ago. Associated signs and symptoms: The patient has no apparent associated signs or symptoms. Severity of symptoms: At its worst the pain was mild, in the emergency department the pain is unchanged. Headache History: Denies prior headaches. The symptoms are alleviated by nothing. The patient has not experienced similar symptoms in the past. 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 - Social history:: Smoking status: Patient uses tobacco products, denies chronic smoking, but will smoke occasionally. - Family history:: not pertinent. - Ebola Screening: : Patient denies exposure to infectious person Patient denies travel to an Ebola-affected area in the 21 days before illness onset. ROS: 00:29 Constitutional: Negative for fever, chills, and weight loss. leanna 00:30 Eyes: Negative for injury, pain, redness, and discharge, ENT: Negative for injury, leanna pain, and discharge, Neck: Negative for injury, pain, and swelling, Cardiovascular: Negative for chest pain, palpitations, and edema, Respiratory: Negative for shortness of breath, cough, wheezing, and pleuritic chest pain, Abdomen/GI: Negative for abdominal pain, nausea, vomiting, diarrhea, and constipation, : Negative for injury, bleeding, discharge, and swelling, MS/Extremity: Negative for injury and deformity, Skin: Negative for injury, rash, and discoloration, Neuro: Negative for headache, weakness, numbness, tingling, and seizure, Psych: Negative for depression, anxiety, suicide ideation, homicidal ideation, and hallucinations, Allergy/Immunology: Negative for hives, rash, and allergies, Endocrine: Negative for neck swelling, polydipsia, polyuria, polyphagia, and marked weight changes, Hematologic/Lymphatic: Negative for swollen nodes, abnormal bleeding, and unusual bruising. 00:30 Back: Positive for of the left scapular area, right scapular area and thoracic area. Exam: 00:30 Constitutional: This is a well developed, well nourished patient who is awake, alert, leanna and in no acute distress. Head/Face: Normocephalic, atraumatic. Eyes: Pupils equal round and reactive to light, extra-ocular motions intact. Lids and lashes normal. Conjunctiva and sclera are non-icteric and not injected. Cornea within normal limits. Periorbital areas with no swelling, redness, or edema. ENT: Nares patent. No nasal discharge, no septal abnormalities noted. Tympanic membranes are normal and external auditory canals are clear. Oropharynx with no redness, swelling, or masses, exudates, or evidence of obstruction, uvula midline. Mucous membranes moist. Neck: Trachea midline, no thyromegaly or masses palpated, and no cervical lymphadenopathy. Supple, full range of motion without nuchal rigidity, or vertebral point tenderness. No Meningismus. Chest/axilla: Normal chest wall appearance and motion. Nontender with no deformity. No lesions are appreciated. Cardiovascular: Regular rate and rhythm with a normal S1 and S2. No gallops, murmurs, or rubs. Normal PMI, no JVD. No pulse deficits. Respiratory: Lungs have equal breath sounds bilaterally, clear to auscultation and percussion. No rales, rhonchi or wheezes noted. No increased work of breathing, no retractions or nasal flaring. Abdomen/GI: Soft, non-tender, with normal bowel sounds. No distension or tympany. No guarding or rebound. No evidence of tenderness throughout. Back: No spinal tenderness. No costovertebral tenderness. Full range of motion. Skin: Warm, dry with normal turgor. Normal color with no rashes, no lesions, and no evidence of cellulitis. MS/ Extremity: Pulses equal, no cyanosis. Neurovascular intact. Full, normal range of motion. Neuro: Awake and alert, GCS 15, oriented to person, place, time, and situation. Cranial nerves II-XII grossly intact. Motor strength 5/5 in all extremities. Sensory grossly intact. Cerebellar exam normal. Normal gait. Psych: Awake, alert, with orientation to person, place and time. Behavior, mood, and affect are within normal limits. 00:30 Musculoskeletal/extremity: ROM: Compartment Syndrome exam of affected extremity: Joints: Weight bearing: able to fully bear weight, DVT Exam: No signs of deep vein thrombosis. no pain, no swelling, no tenderness, negative Homans' sign noted on exam, no appreciated bluish discoloration, no erythema, no increased warmth. Vital Signs: 00:31 BP 173 / 112; Pulse 70; Resp 16; Temp 97.6; Pulse Ox 100% on R/A; Weight 90.72 kg; aa1 Height 4 ft. 0 in. (121.92 cm); Pain 10/10; 01:11 BP 152 / 96; Pulse 75; Resp 16; Pulse Ox 98% ; rr5 01:55 BP 162 / 104; Pulse 70; Resp 18; Pulse Ox 100% on R/A; rr5 00:31 Body Mass Index 61.03 (90.72 kg, 121.92 cm) aa1 MDM: 00:18 Patient medically screened. [facility] 00:32 Data reviewed: vital signs, nurses notes, lab test result(s), EKG, radiologic studies, [facility] CT scan. 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 06/01 00:26 Order name: Flu; Complete Time: 01:28 [facility] 06/01 00:27 Order name: Urine Culture [facility] 06/01 00:27 Order name: Urine Dipstick-Ancillary (obtain specimen); Complete Time: 00:58 [facility] 06/01 00:58 Order name: Urine Dipstick--Ancillary (enter results); Complete Time: 01:08 [facility] 06/01 00:58 Order name: Urine --Ancillary (enter results); Complete Time: 01:08 [facility] 06/01 01:00 Order name: Vital Signs; Complete Time: 01:11 [facility] Administered Medications: 01:56 Drug: Tylenol #3 (300 mg-30 mg) 2 tabs {Note: rass 0.} Route: PO; rr5 02:05 Follow up: Response: No adverse reaction; Medication administered at discharge.; RASS: rr5 Alert and Calm (0) Disposition: 06/01/19 01:13 Discharged to Home. Impression: Malaise and fatigue, Essential (primary) hypertension. - Condition is Stable. - Discharge Instructions: Hypertension, Weakness, Fatigue, Hypertension, [id number], How to Take Your Blood Pressure, Jbbf-dw-[id number], Weakness, Yvkl-ck-Vfdx, Managing Your Hypertension. - Prescriptions for Ibuprofen 600 mg Oral Tablet - take 1 tablet by ORAL route 3 times per day As needed take with food; 21 tablet. - Medication Reconciliation Form, Thank You Letter, Antibiotic Education, Prescription Opioid Use form. - Follow up: Private Physician; When: 2 - 3 days; Reason: Recheck today's complaints, Continuance of care, Re-evaluation by your physician. Follow up: Harsha Casanova; When: 2 - 3 days; Reason: Recheck today's complaints, Re-evaluation by your physician. - Problem is new. - Symptoms have improved. Signatures: Dispatcher [employer] Farida Sifuentes RN RN aa1 Epi Fallon MD MD cha Roque, Raymond, RN RN rr5 Corrections: (The following items were deleted from the chart) 02:05 01:13 06/01/2019 01:13 Discharged to Home. Impression: Malaise and fatigue; Essential rr5 (primary) hypertension. Condition is Stable. Discharge Instructions: Weakness, Fatigue, Weakness, Esfm-pw-[id number], Hypertension, Hypertension, Tvzu-sb-Wqse, How to Take Your Blood Pressure, Qpkm-yl-Wwsg, Managing Your Hypertension. Prescriptions for Ibuprofen 600 mg Oral Tablet - take 1 tablet by ORAL route 3 times per day As needed take with food; 21 tablet. and Forms are Medication Reconciliation Form, Thank You Letter, Antibiotic Education, Prescription Opioid Use. Follow up: Private Physician; When: 2 - 3 days; Reason: Recheck today's complaints, Continuance of care, Re-evaluation by your physician. Follow up: Harsha Casanova; When: 2 - 3 days; Reason: Recheck today's complaints, Re-evaluation by your physician. Problem is new. Symptoms have improved. leanna
[2019-06-01] MEDS ORDERED: CODEINE 30MG/APAP 300MG TAB ONE (01:51)
[2019-06-01 02:28] VITALS: TEMP 97.6
[2019-06-01 02:29] VITALS: BP 152/96; O2SAT 98
== END 2019-06-01 02:05 | disposition home or self-care (01) ==
LOC: ER 00:06
DX: I10 Essential (primary) hypertension (principal); R53.81 Other malaise; R53.83 Other fatigue; Z72.0 Tobacco use
CPT/HCPCS: 81003; 81025; 87086; 87088; 87804; 99283

== ENCOUNTER 2019-06-26 09:21 | Emergency (ER) | payer OTHER ==
[2019-06-26 09:43] LABS: Absolute Lymphocytes (CBC) 2.2 K/uL (0.7-4.9); Basophils % 0.9 % (0-1.3); Hematocrit 35.9 % (36.0-45.0); MPV 8.8 fL (7.6-11.3); RBC Red Blood Cell Count 4.29 M/uL (3.86-4.86)
[2019-06-26 10:07] LABS: BUN Blood Urea Nitrogen 9 mg/dL (7-18); Bicarbonate 25 mmol/L (21-32); Glucose Level 90 mg/dL (74-106); Potassium 3.8 mmol/L (3.5-5.1); Sodium Level 141 mmol/L (136-145)
[2019-06-26 10:21] LABS: HCG, Quantitative < 1 mIU/mL (1-3)
--- NOTE | 2019-06-26 11:36 | ER ---
Nurse's Notes [facility] Name: Minh Gallardo Age: 23 yrs Sex: Female : 1995 Arrival Date: 06/26/2019 Time: 09:23 Bed 20 Private MD: Diagnosis: Other abnormal uterine and vaginal bleeding Presentation: 06/26 09:29 Presenting complaint: Gave 05/27, had unprotected sex 2 weeks ago, reports spotty hb vaginal bleeding and abdominal cramping since yesterday. + home test. Transition of care: patient was not received from another setting of care. Onset of symptoms was June 25, 2019. Risk Assessment: Do you want to hurt yourself or someone else? Patient reports no desire to harm self or others. Initial Sepsis Screen: Does the patient meet any 2 criteria? No. Patient's initial sepsis screen is negative. Does the patient have a suspected source of infection? No. Patient's initial sepsis screen is negative. Care prior to arrival: None. 09:29 Method Of Arrival: Ambulatory hb 09:29 Acuity: MARY 3 hb Triage Assessment: 09:32 General: Appears in no apparent distress. Behavior is calm, cooperative. Pain: Pain hb currently is 7 out of 10 on a pain scale. EENT: No signs and/or symptoms were reported regarding the EENT system. Neuro: Level of Consciousness is awake, alert, obeys commands, Oriented to person, place, time, situation. Cardiovascular: Capillary refill < 3 seconds Patient's skin is warm and dry. Respiratory: Airway is patent Respiratory effort is even, unlabored, Respiratory pattern is regular, symmetrical, Breath sounds are clear bilaterally. GI: No signs and/or symptoms were reported involving the gastrointestinal system. : Reports vaginal bleeding that is spotty. Derm: Skin is pink, warm \T\ dry. Musculoskeletal: No signs and/or symptoms reported regarding the musculoskeletal system. 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 - Social history:: Smoking status: Patient/guardian denies using tobacco, Patient/guardian denies using alcohol, street drugs, The patient lives with family. - Ebola Screening: : No symptoms or risks identified at this time. - Family history:: not pertinent. Screenin:39 Abuse screen: Denies threats or abuse. Denies injuries from another. Nutritional hb screening: No deficits noted. Tuberculosis screening: No symptoms or risk factors identified. Fall Risk None identified. Assessment: 09:35 General: see triage assessment. hb 10:30 Reassessment: Patient appears in no apparent distress at this time. Patient and/or hb family updated on plan of care and expected duration. Pain level reassessed. Patient is alert, oriented x 3, equal unlabored respirations, skin warm/dry/pink. Vital Signs: 09:33 BP 152 / 106; Pulse 73; Resp 16; Temp 98.2; Pulse Ox 100% ; Weight 90.72 kg; Height 5 hb ft. (152.40 cm); Pain 7/10; 09:33 Body Mass Index 39.06 (90.72 kg, 152.40 cm) hb ED Course: 09:23 Patient arrived in ED. as 09:27 Brian Price MD is Attending Physician. ma2 09:29 Elizaebth Esteves, RN is Primary Nurse. hb 09:31 Triage completed. hb 09:33 Arm band placed on. hb 09:34 Initial lab(s) drawn, by la, sent to lab. Inserted saline lock: 22 gauge in right 3 antecubital area, using aseptic technique. Blood collected. 11:10 Urine collected: clean catch specimen, clear. [facility] 11:52 No provider procedures requiring assistance completed. Patient did not have IV access ss during this emergency room visit. Administered Medications: No medications were administered Outcome: 11:35 Discharge ordered by . ma2 11:59 Patient left the ED. ss Signatures: Pamela Brown Shelby, RN RN Elizabeth Esteves, YOLA ACEVES [place] [id number] Brian Price MD MD ma2
--- NOTE | 2019-06-26 11:36 | EDPHYS ---
Physician Documentation [facility] Name: Minh Gallardo Age: 23 yrs Sex: Female : 1995 Arrival Date: 06/26/2019 Time: 09:23 Bed 20 Private MD: ED Physician Brian Price HPI: 06/26 10:01 This 23 yrs old Black Female presents to ER via Ambulatory with complaints of Vaginal ma2 Bleeding - unk weeks preg, Pelvic Pain. 10:01 Onset: The symptoms/episode began/occurred gradually, 3 day(s) ago. Associated signs ma2 and symptoms: Pertinent negatives: dyspareunia, fever, nausea, vaginal bleeding. Severity of symptoms: At their worst the symptoms were mild, in the emergency department the symptoms are unchanged. The patient has not experienced similar symptoms in the past. 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 - Social history:: Smoking status: Patient/guardian denies using tobacco, Patient/guardian denies using alcohol, street drugs, The patient lives with family. - Ebola Screening: : No symptoms or risks identified at this time. - Family history:: not pertinent. ROS: 10:01 Negative for urinary symptoms. ma2 10:01 Constitutional: Negative for fever, chills, and weight loss, Cardiovascular: Negative for chest pain, palpitations, and edema. 10:01 All other systems are negative. Exam: 10:01 Constitutional: This is a well developed, well nourished patient who is awake, alert, ma2 and in no acute distress. Chest/axilla: Normal chest wall appearance and motion. Nontender with no deformity. No lesions are appreciated. Cardiovascular: Regular rate and rhythm with a normal S1 and S2. No gallops, murmurs, or rubs. Normal PMI, no JVD. No pulse deficits. Respiratory: Lungs have equal breath sounds bilaterally, clear to auscultation and percussion. No rales, rhonchi or wheezes noted. No increased work of breathing, no retractions or nasal flaring. Abdomen/GI: Soft, non-tender, with normal bowel sounds. No distension or tympany. No guarding or rebound. No evidence of tenderness throughout. MS/ Extremity: Pulses equal, no cyanosis. Neurovascular intact. Full, normal range of motion. Psych: Awake, alert, with orientation to person, place and time. Behavior, mood, and affect are within normal limits. Vital Signs: 09:33 BP 152 / 106; Pulse 73; Resp 16; Temp 98.2; Pulse Ox 100% ; Weight 90.72 kg; Height 5 hb ft. (152.40 cm); Pain 7/10; 09:33 Body Mass Index 39.06 (90.72 kg, 152.40 cm) hb MDM: 09:24 Patient medically screened. [facility] 10:01 Differential diagnosis: abruptio placentae, dysfunctional uterine bleeding, menorrhea, [facility] 11:34 Data reviewed: vital signs, nurses notes. Counseling: I had a detailed discussion with ma the patient and/or guardian regarding: the historical points, exam findings, and any diagnostic results supporting the discharge/admit diagnosis, the presence of at least one elevated blood pressure reading (>120/80) during this emergency department visit, the need for outpatient follow up. Response to treatment: the patient's symptoms have markedly improved after treatment. 06/26 09:25 Order name: Quantitative Hcg; Complete Time: 10:51 ma2 06/26 09:25 Order name: Abo/rh Typing; Complete Time: 10:51 ma2 06/26 09:25 Order name: Basic Metabolic Panel; Complete Time: 10:51 ma2 06/26 09:25 Order name: CBC with Diff; Complete Time: 10:51 ma2 06/26 09:25 Order name: IV Saline Lock; Complete Time: 10:07 ma2 06/26 11:09 Order name: Urine Dipstick--Ancillary (enter results) bd 06/26 09:25 Order name: Labs collected and sent; Complete Time: 10:07 ma2 06/26 09:25 Order name: NPO; Complete Time: 10:07 ks2 06/26 09:25 Order name: Urine Dipstick-Ancillary (obtain specimen); Complete Time: 10:57 ma2 Administered Medications: No medications were administered Disposition: 06/26/19 11:35 Discharged to Home. Impression: Other abnormal uterine and vaginal bleeding. - Condition is Stable. - Medication Reconciliation Form, Thank You Letter, Antibiotic Education, Prescription Opioid Use form. - Follow up: Private Physician; When: Tomorrow; Reason: Continuance of care. Signatures: Dispatcher [employer] EDBrigida Charles RN RN ss Baxter, Heather, RN RN Brian Price MD MD ma2 Corrections: (The following items were deleted from the chart) 11:59 11:35 06/26/2019 11:35 Discharged to Home. Impression: Other abnormal uterine and ss vaginal bleeding. Condition is Stable. Forms are Medication Reconciliation Form, Thank You Letter, Antibiotic Education, Prescription Opioid Use. Follow up: Private Physician; When: Tomorrow; Reason: Continuance of care. ma2
[2019-06-26 11:49] LABS: Urine Blood NEGATIVE (NEG); Urine Glucose NEGATIVE (NEG); Urine Protein NEGATIVE (NEG); Urine pH 6.5 (5.0-7.0)
[2019-06-26 12:46] VITALS: BP 152/106; TEMP 98.2; O2SAT 100
== END 2019-06-26 11:59 | disposition home or self-care (01) ==
LOC: ER 09:21
DX: N93.8 Other specified abnormal uterine and vaginal bleeding (principal)
CPT/HCPCS: 36415; 80048; 81003; 84702; 85025; 86900; 86901; 99283

== ENCOUNTER 2020-03-21 11:01 | Emergency (ER) | payer SELFPAY, OTHER ==
--- OUTSIDE RECORDS SUMMARY | 2020-03-21 11:03 | XMS REPORT | Continuity of Care Document ---
:1995 Author Organization [facility] t Address [address] [place] [address] Care Team Providers Name Role Phone Andre NGUYỄN Attending Clinician Ultrasound, Mfm Attending Clinician Unavailable 1, Lab Attending Clinician Unavailable Doctor Unassigned, Name Attending Clinician Unavailable Problems This patient has no known problems. Allergies, Adverse Reactions, Alerts This patient has no known allergies or adverse reactions. Medications This patient has no known medications. Procedures This patient has no known procedures. Encounters Start End Encounter Admission Attending Care Care Encounter Source Date/Time Date/Time Type Type Clinicians Facility Department ID 2019-04-25 2019-04-25 Routine Powell, [facility] 1.2.840.114 [id number] 10:12:39 11:15:39 Dori Wallis [id number] Visit [place] [id number] [place] [phone] [address] 2019-04-05 2019-04-05 Fbi Investigator Ultrasound, [facility] 1.2.840.114 [id number] 10:59:06 11:59:06 Visit Adc Claudia Wallis [id number] [place] [id number] [place] [phone] [address] 2019-04-05 2019-04-05 Routine Powell, [facility] 1.2.840.114 [id number] 08:44:38 09:20:31 Dorimilagros Wallis [id number] Visit [place] [id number] [place] [phone] [address] 2019-03-15 2019-03-15 Fbi Investigator 1, Adc Lab [facility] [id number] 10:32:03 10:47:03 Visit Kadi [id number] [place] [id number] [place] [phone] 353 2019-03-15 2019-03-15 Initial [facility] [id number] 08:59:50 10:08:54 Dori Wallis [id number] Visit [place] [id number] [place] [phone] [address] 2019-03-15 2019-03-15 Orders Doctor ERWIN [id number] 00:00:00 00:00:00 Only Unassigned, [place] [id number] [place] [facility] [phone] [id number] 2019-03-15 2019-03-15 Telephone [facility] [id number] 00:00:00 00:00:00 Dori Wallis [id number] [place] [id number] [place] [phone] [address] Results This patient has no known results.
[2020-03-21] MEDS ORDERED: IBUPROFEN 400 MG TAB ONE (12:39)
[2020-03-21] MEDS ORDERED: IBUPROFEN 200 MG TAB PO ONE (12:39)
--- NOTE | 2020-03-21 13:40 | EDPHYS ---
Physician Documentation [facility] Name: Minh Gallardo Age: 24 yrs Sex: Female : 1995 Arrival Date: 03/21/2020 Time: 11:04 Bed 15 Private MD: ED Physician Epi Fallon HPI: 03/21 12:36 This 24 yrs old Black Female presents to ER via Ambulatory with complaints of Headache, pm1 Sore Throat, Chills. 12:36 The patient presents with sore throat. The patient describes throat pain as raw, pm1 scratchy. Onset: The symptoms/episode began/occurred 3 day(s) ago. Severity of symptoms: in the emergency department the symptoms are actually worse. Modifying factors: The symptoms are alleviated by nothing, the symptoms are aggravated by swallowing, Patient's oral intake status: good. Associated signs and symptoms: Pertinent positives: chills, headache, Pertinent negatives chest pain, cough, fever, shortness of breath. The patient has not recently seen a physician. 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 - Social history:: Smoking status: Patient reports the use of cigarette tobacco products, smokes one-half pack cigarettes per day. ROS: 12:36 Constitutional: Negative for fever, chills, and weight loss, Eyes: Negative for injury, pm1 pain, redness, and discharge. 12:36 Neck: Negative for injury, pain, and swelling, Cardiovascular: Negative for chest pain, palpitations, and edema, Respiratory: Negative for shortness of breath, cough, wheezing, and pleuritic chest pain, Abdomen/GI: Negative for abdominal pain, nausea, vomiting, diarrhea, and constipation, Back: Negative for injury and pain, MS/Extremity: Negative for injury and deformity, Skin: Negative for injury, rash, and discoloration. 12:36 ENT: Positive for sore throat, Negative for ear pain. 12:36 Neuro: Positive for headache, Negative for numbness, tingling. Exam: 12:36 Constitutional: This is a well developed, well nourished patient who is awake, alert, pm1 and in no acute distress. Head/Face: Normocephalic, atraumatic. 12:36 Back: No spinal tenderness. No costovertebral tenderness. Full range of motion. Skin: Warm, dry with normal turgor. Normal color with no rashes, no lesions, and no evidence of cellulitis. MS/ Extremity: Pulses equal, no cyanosis. Neurovascular intact. Full, normal range of motion. 12:36 ENT: Nares patent. No nasal discharge, no septal abnormalities noted. Tympanic membranes are normal and external auditory canals are clear. Oropharynx with no redness, swelling, or masses, exudates, or evidence of obstruction, uvula midline. Mucous membranes moist. 12:36 Neck: Lymph nodes: lymphadenopathy is appreciated, anterior cervical nodes. 12:36 Cardiovascular: Exam negative for acute changes, Rate: normal, Rhythm: regular, Pulses: no pulse deficits are appreciated. 12:36 Respiratory: Exam negative for acute changes, respiratory distress, shortness of breath. 12:36 Neuro: Exam negative for acute changes, Orientation: is normal, Mentation: is normal, Motor: is normal, moves all fours. Vital Signs: 11:26 BP 137 / 88; Pulse 75; Resp 15; Temp 98.9(TE); Pulse Ox 100% on R/A; Weight 81.65 kg; ss Height 5 ft. 0 in. (152.40 cm); Pain 8/10; 14:11 BP 132 / 80; Pulse 72; Resp 16; Temp 98.4(O); Pulse Ox 100% on R/A; Pain 5/10; ls4 11:26 Body Mass Index 35.15 (81.65 kg, 152.40 cm) ss MDM: 11:51 Patient medically screened. leanna 13:39 Data reviewed: vital signs. Data interpreted: Pulse oximetry: on room air is 100 %. pm1 Interpretation: normal. Counseling: I had a detailed discussion with the patient and/or guardian regarding: the historical points, exam findings, and any diagnostic results supporting the discharge/admit diagnosis, lab results, the need for outpatient follow up, to return to the emergency department if symptoms worsen or persist or if there are any questions or concerns that arise at home. 03/21 12:02 Order name: COVID-19 pm1 03/21 12:02 Order name: Flu; Complete Time: 13:38 pm1 03/21 12:02 Order name: Strep; Complete Time: 13:38 pm1 03/21 13:31 Order name: Throat Culture [facility] 03/21 13:53 Order name: Urine Dipstick--Ancillary (enter results); Complete Time: 14:14 eb 03/21 13:53 Order name: Urine --Ancillary (enter results); Complete Time: 14:14 03/21 12:02 Order name: Droplet/Contact Precautions; Complete Time: 12:11 pm1 03/21 12:02 Order name: Labs collected and sent; Complete Time: 13:41 pm1 03/21 12:02 Order name: O2 Per Protocol; Complete Time: 12:12 pm1 03/21 13:41 Order name: Urine Dipstick-Ancillary (obtain specimen); Complete Time: 14:11 ls4 Administered Medications: 12:36 Drug: Ibuprofen 600 mg Route: PO; ls4 13:40 Follow up: Response: No adverse reaction; Marked relief of symptoms ls4 Disposition: 03/21/20 13:39 Discharged to Home. Impression: Acute upper respiratory infection, unspecified. - Condition is Stable. - Discharge Instructions: Upper Respiratory Infection, Adult, COVID-19. - Medication Reconciliation Form, Thank You Letter, Antibiotic Education, Prescription Opioid Use, Work release form form. - Follow up: Emergency Department; When: As needed; Reason: Worsening of condition. Follow up: Private Physician; When: 2 - 3 days; Reason: Recheck today's complaints, Continuance of care, Re-evaluation by your physician. - Problem is new. - Symptoms have improved. Addendum: 03/23/2020 08:10 Co-signature as Attending Physician, Epi Fallon MD I agree with the assessment and c guillen plan of care. Signatures: Dispatcher [employer] Epi Downey MD MD cha Smirch, Shelby, YOLA RN ss Brandon Villagran, MIRLANDE EPIC DIRECTOR pm1 Bre Crow RN RN ls4 Corrections: (The following items were deleted from the chart) 03/21 14:29 13:39 03/21/2020 13:39 Discharged to Home. Impression: Acute upper respiratory ls4 infection, unspecified. Condition is Stable. Forms are Medication Reconciliation Form, Thank You Letter, Antibiotic Education, Prescription Opioid Use. Follow up: Emergency Department; When: As needed; Reason: Worsening of condition. Follow up: Private Physician; When: 2 - 3 days; Reason: Recheck today's complaints, Continuance of care, Re-evaluation by your physician. Problem is new. Symptoms have improved. pm1
--- NOTE | 2020-03-21 13:40 | ER ---
Nurse's Notes [facility] Name: Minh Gallardo Age: 24 yrs Sex: Female : 1995 Arrival Date: 03/21/2020 Time: 11:04 Bed 15 Private MD: Diagnosis: Acute upper respiratory infection, unspecified Presentation: 03/21 11:26 Chief complaint: Patient states: headache x 3 days. Sore throat, chills and body aches ss that began yesterday. Coronavirus screen: Client denies travel out of the [place] in the last 14 days. chills, headache, muscle pain, sore throat, Client presents with at least one sign or symptom that may indicate coronavirus-19. Standard/surgical mask placed on the client. Ebola Screen: Patient denies exposure to infectious person. Patient denies travel to an Ebola-affected area in the 21 days before illness onset. Initial Sepsis Screen: Does the patient meet any 2 criteria? No. Patient's initial sepsis screen is negative. Does the patient have a suspected source of infection? No. Patient's initial sepsis screen is negative. Risk Assessment: Do you want to hurt yourself or someone else? Patient reports no desire to harm self or others. Onset of symptoms was March 18, 2020. 11:26 Method Of Arrival: Ambulatory ss 11:26 Acuity: MARY 4 ss Triage Assessment: 12:10 Headache History: The patient has had previous headaches and this one is similar to ls4 previous episodes. General: Appears uncomfortable, Behavior is calm, cooperative. Pain: Pain currently is 8 out of 10 on a pain scale. Quality of pain is described as aching, Pain began gradually, Also complains of. Neuro: Level of Consciousness is awake, alert, obeys commands, Oriented to person, place, time, situation, Stna are equal bilaterally Moves all extremities. Gait is steady, Speech is normal, Facial symmetry appears normal, Pupils are PERRLA, Intact Cardiovascular: No deficits noted. Respiratory: Airway is patent Respiratory effort is even, unlabored, Respiratory pattern is regular, Breath sounds are clear bilaterally. GI: Abdomen is non-distended, Bowel sounds present X 4 quads. Abd is soft and non tender X 4 quads. : Reports pain in lower back with urination. Derm: Skin is intact, Skin is dry, Skin is normal. Musculoskeletal: No deficits noted. No signs and/or symptoms reported regarding the musculoskeletal system. 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 - Social history:: Smoking status: Patient reports the use of cigarette tobacco products, smokes one-half pack cigarettes per day. Screenin:59 Abuse screen: Denies threats or abuse. Denies injuries from another. Nutritional ls4 screening: No deficits noted. Tuberculosis screening: No symptoms or risk factors identified. Fall Risk None identified. Assessment: 12:59 Reassessment: Patient appears in no apparent distress at this time. Patient and/or ls4 family updated on plan of care and expected duration. Pain level reassessed. Patient is alert, oriented x 3, equal unlabored respirations, skin warm/dry/pink. Vital Signs: 11:26 BP 137 / 88; Pulse 75; Resp 15; Temp 98.9(TE); Pulse Ox 100% on R/A; Weight 81.65 kg; ss Height 5 ft. 0 in. (152.40 cm); Pain 8/10; 14:11 BP 132 / 80; Pulse 72; Resp 16; Temp 98.4(O); Pulse Ox 100% on R/A; Pain 5/10; ls4 11:26 Body Mass Index 35.15 (81.65 kg, 152.40 cm) ED Course: 11:04 Patient arrived in ED. ds1 11:28 Triage completed. ss 11:29 Arm band placed on right wrist. ss 11:49 Brandon Villagran, MIRLANDE is PHCP. pm1 11:49 Epi Fallon MD is Attending Physician. pm1 12:01 Bre Crow, YOLA is Primary Nurse. ls4 12:59 Patient has correct armband on for positive identification. Bed in low position. Call ls4 light in reach. Side rails up X 1. Pulse ox on. NIBP on. Warm blanket given. Verbal reassurance given. 13:41 Throat Culture Sent. ls4 14:12 No provider procedures requiring assistance completed. Patient did not have IV access ls4 during this emergency room visit. Administered Medications: 12:36 Drug: Ibuprofen 600 mg Route: PO; ls4 13:40 Follow up: Response: No adverse reaction; Marked relief of symptoms ls4 Outcome: 13:39 Discharge ordered by . pm1 14:12 Discharged to home ambulatory. ls4 14:12 Condition: good 14:12 Discharge instructions given to patient, Instructed on discharge instructions, follow up and referral plans. medication usage, Demonstrated understanding of instructions, follow-up care, medications. 14:29 Patient left the ED. ls4 Addendum: 03/25/2020 13:20 Addendum: COVID-19 Result: Negative result given to RN to notify pt. Attempted to d m5 contact pt regarding negative COVID-19 swab results. Unable to leave voice mail due to the number provided was either not a working number, the voice mail has not been set up, or the voice mailbox is full.. 14:15 Addendum: COVID-19 Result: Negative result given to RN to notify pt. Notified pt of i w negative COVID 19 swab results. Pt advised that even with a negative test result they should remain in isolation until symptom free for 3 days without medication. Pt also advised to return to the ED for worsening symptoms. Signatures: Leonila Navarro, RN RN dm5 Elham Sylvester ds1 Nicci Garcia, YOLA ACEVES iw Brigida Moss RN RN ss Brandon Villagran, MIRLANDE FORGE HEATER pm1 Bre Crow RN RN ls4
[2020-03-21 14:02] LABS: Urine Blood NEGATIVE (NEG); Urine Glucose NEGATIVE (NEG); Urine Protein NEGATIVE (NEG); Urine pH 6.5 (5.0-7.0)
[2020-03-21 14:44] VITALS: O2SAT 100
[2020-03-21 14:52] VITALS: BP 132/80; TEMP 98.4
== END 2020-03-21 14:29 | disposition home or self-care (01) ==
LOC: ER 11:01
DX: J06.9 Acute upper respiratory infection, unspecified (principal); F17.210 Nicotine dependence, cigarettes, uncomplicated; Z20.828 Contact with and (suspected) exposure to other viral communicable diseases
CPT/HCPCS: 81003; 81025; 87070; 87081; 87804; 99283; U0002

== ENCOUNTER 2020-03-25 16:47 | Emergency (ER) | payer OTHER, SELFPAY ==
--- OUTSIDE RECORDS SUMMARY | 2020-03-25 16:49 | XMS REPORT | Continuity of Care Document ---
:1995 Author Organization [facility] t Address 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, [facility] 1.2.840.114 [id number] 10:59:06 11:59:06 Visit Adc Claudia Wallis [id number] [place] [id number] [place] [phone] [address] 2019-04-05 2019-04-05 Routine Powell, [facility] 1.2.840.114 [id number] 08:44:38 09:20:31 Dori Wallis [id number] Visit [place] [id number] [place] [phone] [address] 2019-03-15 2019-03-15 Back End Developer 1, Adc Lab [facility] 1.2.840.114 [id number] 10:32:03 10:47:03 Visit [place] [id number] [place] [id number] [place] [phone] [id number] 2019-03-15 2019-03-15 Initial [facility] 1.2.840.114 [id number] 08:59:50 10:08:54 Dori Wallis [id number] Visit [place] [id number] [place] [phone] [address] 2019-03-15 2019-03-15 Orders Doctor ERWIN [id number] 00:00:00 00:00:00 Only Unassigned, [place] [id number] [place] [facility] [phone] [id number] 2019-03-15 2019-03-15 Telephone [facility] 1.2.840.114 [id number] 00:00:00 00:00:00 Dori Wallis [id number] [place] [id number] [place] [phone] [address] Results This patient has no known results.
[2020-03-25] MEDS ORDERED: NA CHLORIDE 0.9% 1,000 ML ONE ×2 (20:38→22:03)
[2020-03-25 20:46] LABS: Absolute Lymphocytes (CBC) 1.2 K/uL (0.7-4.9); Basophils % 0.2 % (0-1.3); Hematocrit 31.4 % (36.0-45.0); Lymphocytes % 11.1 % (15.3-44.8); MPV 8.9 fL (7.6-11.3); RBC Red Blood Cell Count 3.67 M/uL (3.86-4.86)
[2020-03-25 20:48] LABS: BUN Blood Urea Nitrogen 6 mg/dL (7-18); Bicarbonate 22 mmol/L (21-32); Glucose Level 113 mg/dL (74-106); Potassium 3.4 mmol/L (3.5-5.1); Sodium Level 135 mmol/L (136-145)
[2020-03-25 21:47] LABS: Blood Morphology Comment NOT SEEN (NOT SEEN); Platelet Estimate ADEQ; Urine White Blood Cell Casts OK
[2020-03-25] MEDS ORDERED: ONDANSETRON 4 MG/2 ML VIAL ONE (22:03)
[2020-03-25] MEDS ORDERED: KETOROLAC 30 MG/ML INJ ONE (23:00)
[2020-03-25 23:42] LABS: Urine Blood TRACE (NEG); Urine Glucose NEGATIVE (NEG); Urine Protein 1+ (NEG)
--- NOTE | 2020-03-26 00:03 | ER ---
Nurse's Notes [facility] Name: Minh Gallardo Age: 24 yrs Sex: Female : 1995 Arrival Date: 03/25/2020 Time: 16:49 Bed 16 Private MD: Diagnosis: Exudative Pharyngitis;Dehydration;Tonsilitis Presentation: 03/25 16:50 Chief complaint: Patient states: Fever, fatigue, not feeling well since March 18. ll1 Seen here on the , covid test negative. Denies N/V/D. Coronavirus screen: Client denies travel out of the [place] in the last 14 days. fatigue, fever, muscle pain, Client presents with at least one sign or symptom that may indicate coronavirus-19. Standard/surgical mask placed on the client. The client reports previous COVID testing was negative. Ebola Screen: Patient denies travel to an Ebola-affected area in the 21 days before illness onset. Initial Sepsis Screen: Does the patient meet any 2 criteria? Temp <36.0*C (96.8*F)) or > 38.3*C (100.9*F). HR > 90 bpm. Yes Does the patient have a suspected source of infection? No. Patient's initial sepsis screen is negative. Risk Assessment: Do you want to hurt yourself or someone else? Patient reports no desire to harm self or others. Onset of symptoms was March 18, 2020. 16:50 Method Of Arrival: EMS: [facility] 16:50 Acuity: MARY 3 ll1 Historical: - Allergies: 16:50 No Known Allergies; ll1 - PMHx: 16:50 Ovarian cyst; postparturm eclampsia; Depression; ll1 - PSHx: 16:50 right oophorectomy; Appendectomy; ll1 - Immunization history:: Flu vaccine is up to date. - Social history:: Smoking status: Patient reports the use of cigarette tobacco products, smokes one-half pack cigarettes per day, Patient/guardian denies using alcohol, street drugs. Screenin:00 Abuse screen: Denies threats or abuse. Nutritional screening: No deficits noted. vc Tuberculosis screening: No symptoms or risk factors identified. Fall Risk None identified. Assessment: 19:00 General: Appears uncomfortable, ill, Behavior is calm, cooperative, appropriate for vc age. Pain: Complains of pain in head Pain does not radiate. Pain currently is 7 out of 10 on a pain scale. Quality of pain is described as sharp, squeezing, Aggravated by light Noted to be grimacing. Neuro: Level of Consciousness is awake, obeys commands, lethargic, Oriented to person, place, time, situation. Cardiovascular: Capillary refill < 3 seconds Patient's skin is warm and dry. Respiratory: Airway is patent Respiratory effort is even, unlabored, Respiratory pattern is regular, symmetrical. GI: Pt is actively vomiting Reports nausea. : Urine is cloudy, Reports pain in vagina when she sits. 20:00 Reassessment: Patient appears in no apparent distress at this time. Patient and/or vc family updated on plan of care and expected duration. Pain level reassessed. Patient is alert, oriented x 3, equal unlabored respirations, skin warm/dry/pink. 21:00 Reassessment: Patient appears in no apparent distress at this time. Patient and/or vc family updated on plan of care and expected duration. Pain level reassessed. Patient states symptoms have not improved. 22:00 Reassessment: Patient appears in no apparent distress at this time. Patient and/or vc family updated on plan of care and expected duration. Pain level reassessed. Patient is alert, oriented x 3, equal unlabored respirations, skin warm/dry/pink. Patient states symptoms have not improved. 23:00 Reassessment: Patient appears in no apparent distress at this time. Patient and/or vc family updated on plan of care and expected duration. Pain level reassessed. Patient is alert, oriented x 3, equal unlabored respirations, skin warm/dry/pink. Patient states symptoms have improved. 03/26 00:00 Reassessment: Patient appears in no apparent distress at this time. Patient and/or vc family updated on plan of care and expected duration. Pain level reassessed. Patient is alert, oriented x 3, equal unlabored respirations, skin warm/dry/pink. Patient states feeling better. Patient states symptoms have improved. Vital Signs: 03/25 16:50 BP 109 / 93; Pulse 117; Resp 18; Temp 103.3; Pulse Ox 98% ; Weight 81.19 kg; Height 5 ll1 ft. (152.40 cm); Pain 10/10; 18:40 BP 107 / 56; Pulse 100; Resp 18 S; Temp 99.6(TE); Pulse Ox 98% on R/A; iw 19:30 BP 114 / 75; Pulse 108; Resp 18; Pulse Ox 99% on R/A; vc 21:30 BP 125 / 76; Pulse 108; Resp 19; Pulse Ox 96% on R/A; vc 22:30 BP 128 / 81; Pulse 106; Resp 19; Pulse Ox 100% on R/A; vc 23:30 BP 126 / 80; Pulse 95; Resp 18; Pulse Ox 100% on R/A; vc 03/26 00:29 BP 133 / 86; Pulse 99; Resp 18; Temp 100.1(O); Pulse Ox 100% on R/A; vc 03/25 16:50 Body Mass Index 34.96 (81.19 kg, 152.40 cm) ll1 ED Course: 03/25 16:49 Patient arrived in ED. ds1 16:52 Triage completed. ll1 16:52 Arm band placed on Patient notified of wait time. ll1 18:34 Patient States she no longer wants to be seen in the ER. Charge nurse notified. ll1 19:00 Patient has correct armband on for positive identification. Bed in low position. Call vc light in reach. Side rails up X2. Pulse ox on. NIBP on. 19:04 Ez Espinal MD is Attending Physician. 7 19:11 Dianna Torrez RN is Primary Nurse. vc 20:22 Strep Sent. ds4 20:22 Influenza Screen (a \T\ B) Sent. ds4 20:22 Basic Metabolic Panel Sent. ds4 20:22 CBC with Diff Sent. ds4 20:45 Missed attempt(s): 22 gauge in right forearm. antecubital area. Bleeding controlled, ds4 band aid applied, catheter tip intact. 21:51 CT Soft Tissue Neck W/contr In Process Unspecified. EDMS 03/26 00:01 Kyung Benoit MD is Referral Physician. 7 00:40 No provider procedures requiring assistance completed. IV discontinued, intact, vc bleeding controlled, No redness/swelling at site. Pressure dressing applied. Administered Medications: 03/25 20:15 Drug: NS 0.9% 1000 ml Route: IV; Rate: 1000 ml; Site: right antecubital; vc 21:55 Drug: NS 0.9% 1000 ml Route: IV; Rate: 1000 ml; Site: right antecubital; vc 21:55 Drug: Zofran (Ondansetron) 4 mg Route: IVP; Site: right antecubital; vc 03/26 00:13 Follow up: Response: No adverse reaction vc 00:13 Drug: Bicillin L-A 1.2 million units Route: IM; Site: left ventrogluteal; vc 00:13 Follow up: Response: No adverse reaction vc 00:40 Follow up: Response: No adverse reaction vc Outcome: 00:02 Discharge ordered by . mhLuz Maria 00:40 Discharged to home ambulatory. vc 00:40 Condition: good 00:40 Discharge instructions given to patient, Instructed on discharge instructions, follow up and referral plans. medication usage, Demonstrated understanding of instructions, follow-up care, medications, Prescriptions given X 2. 00:41 Patient left the ED. vc Signatures: Dispatcher [employer] EDWA Elham Sylvester ds1 Nicci Garcia RN RN iw Swanson, Donovan ds4 Dianna Torrez RN RN vc Lewis, Lynsay, RN RN ll1 Ez Espinal MD MD 7
--- NOTE | 2020-03-26 00:03 | EDPHYS ---
Physician Documentation [facility] Name: Minh Gallardo Age: 24 yrs Sex: Female : 1995 Arrival Date: 03/25/2020 Time: 16:49 Bed 16 Private MD: ED Physician Ez Espinal HPI: 03/25 20:18 This 24 yrs old Black Female presents to ER via EMS with complaints of Fever. mh7 20:18 The patient reports fever, that was measured at 103 degrees Fahrenheit. Onset: The mh7 symptoms/episode began/occurred 4 day(s) ago. Modifying factors: there are no obvious modifying factors. Associated signs and symptoms: Pertinent positives: myalgias, sore throat, Pertinent negatives: abdominal pain, altered mental status, backache, chest pain, cough, diarrhea, pulling at ears, earache, headache, hemoptysis, nausea, night sweats, runny nose, sinus congestion, sinus drainage, skin rash, shortness of breath, swelling, vomiting. Severity of symptoms: At their worst the symptoms were moderate today, in the emergency department the symptoms have improved moderately. Historical: - Allergies: 16:50 No Known Allergies; ll1 - PMHx: 16:50 Ovarian cyst; postparturm eclampsia; Depression; ll1 - PSHx: 16:50 right oophorectomy; Appendectomy; ll1 - Immunization history:: Flu vaccine is up to date. - Social history:: Smoking status: Patient reports the use of cigarette tobacco products, smokes one-half pack cigarettes per day, Patient/guardian denies using alcohol, street drugs. ROS: 20:18 Eyes: Negative for injury, pain, redness, and discharge, Neck: Negative for injury, mh7 pain, and swelling, Cardiovascular: Negative for chest pain, palpitations, and edema, Respiratory: Negative for shortness of breath, cough, wheezing, and pleuritic chest pain, Abdomen/GI: Negative for abdominal pain, nausea, vomiting, diarrhea, and constipation, Back: Negative for injury and pain, : Negative for injury, bleeding, discharge, and swelling, MS/Extremity: Negative for injury and deformity, Skin: Negative for injury, rash, and discoloration, Neuro: Negative for headache, weakness, numbness, tingling, and seizure, Psych: Negative for depression, anxiety, suicide ideation, homicidal ideation, and hallucinations, Allergy/Immunology: Negative for hives, rash, and allergies, Endocrine: Negative for neck swelling, polydipsia, polyuria, polyphagia, and marked weight changes, Hematologic/Lymphatic: Negative for swollen nodes, abnormal bleeding, and unusual bruising. Exam: 20:18 Head/Face: Normocephalic, atraumatic. Eyes: Pupils equal round and reactive to light, mh7 extra-ocular motions intact. Lids and lashes normal. Conjunctiva and sclera are non-icteric and not injected. Cornea within normal limits. Periorbital areas with no swelling, redness, or edema. 20:18 Neck: Trachea midline, no thyromegaly or masses palpated, and no cervical lymphadenopathy. Supple, full range of motion without nuchal rigidity, or vertebral point tenderness. No Meningismus. Chest/axilla: Normal chest wall appearance and motion. Nontender with no deformity. No lesions are appreciated. Cardiovascular: Regular rate and rhythm with a normal S1 and S2. No gallops, murmurs, or rubs. Normal PMI, no JVD. No pulse deficits. Respiratory: Lungs have equal breath sounds bilaterally, clear to auscultation and percussion. No rales, rhonchi or wheezes noted. No increased work of breathing, no retractions or nasal flaring. Abdomen/GI: Soft, non-tender, with normal bowel sounds. No distension or tympany. No guarding or rebound. No evidence of tenderness throughout. Back: No spinal tenderness. No costovertebral tenderness. Full range of motion. Skin: Warm, dry with normal turgor. Normal color with no rashes, no lesions, and no evidence of cellulitis. MS/ Extremity: Pulses equal, no cyanosis. Neurovascular intact. Full, normal range of motion. Neuro: Awake and alert, GCS 15, oriented to person, place, time, and situation. Cranial nerves II-XII grossly intact. Motor strength 5/5 in all extremities. Sensory grossly intact. Cerebellar exam normal. Normal gait. Psych: Awake, alert, with orientation to person, place and time. Behavior, mood, and affect are within normal limits. 20:18 Constitutional: The patient appears in no acute distress, alert, awake, uncomfortable. 20:18 ENT: External ear(s): are unremarkable, Nose: is normal, Mouth: is normal, Posterior pharynx: Airway: normal, Tonsils: bilaterally enlarged, with erythema, with exudate, Uvula: normal, exudate, that is marked, peritonsillar mass, is not appreciated, pooling of secretions, is not appreciated, Dental exam: normal, Voice: is normal. 20:18 ENT: Mouth: Oral mucosa: dry, Gums: normal with healthy appearance, Tongue: is normal, abscess, is not appreciated, drooling, is not appreciated. Vital Signs: 16:50 BP 109 / 93; Pulse 117; Resp 18; Temp 103.3; Pulse Ox 98% ; Weight 81.19 kg; Height 5 ll1 ft. (152.40 cm); Pain 10/10; 18:40 BP 107 / 56; Pulse 100; Resp 18 S; Temp 99.6(TE); Pulse Ox 98% on R/A; iw 19:30 BP 114 / 75; Pulse 108; Resp 18; Pulse Ox 99% on R/A; vc 21:30 BP 125 / 76; Pulse 108; Resp 19; Pulse Ox 96% on R/A; vc 22:30 BP 128 / 81; Pulse 106; Resp 19; Pulse Ox 100% on R/A; vc 23:30 BP 126 / 80; Pulse 95; Resp 18; Pulse Ox 100% on R/A; vc 03/26 00:29 BP 133 / 86; Pulse 99; Resp 18; Temp 100.1(O); Pulse Ox 100% on R/A; vc 03/25 16:50 Body Mass Index 34.96 (81.19 kg, 152.40 cm) 1 MDM: 03/25 19:47 Patient medically screened. [facility] 03/26 00:00 Differential diagnosis: viral Infection, bacterial infection, URI, Pharyngitis, mh7 Tonsilitis. Data reviewed: vital signs, nurses notes, lab test result(s), CBC, electrolytes, Flu: urinalysis, UPT: radiologic studies, CT scan. Data interpreted: Pulse oximetry: on room air is 98 %. Interpretation: normal. Counseling: I had a detailed discussion with the patient and/or guardian regarding: the historical points, exam findings, and any diagnostic results supporting the discharge/admit diagnosis, lab results, radiology results, the need for outpatient follow up, an ENT specialist, to return to the emergency department if symptoms worsen or persist or if there are any questions or concerns that arise at home. Response to treatment: the patient's symptoms have markedly improved after treatment. 03/25 19:48 Order name: CBC with Diff; Complete Time: 23:48 [facility] 03/25 19:48 Order name: Basic Metabolic Panel; Complete Time: 21:19 [facility] 03/25 19:48 Order name: Influenza Screen (a \T\ B); Complete Time: 20:46 [facility] 03/25 19:48 Order name: Strep; Complete Time: 20:46 [facility] 03/25 20:45 Order name: Throat Culture [facility] 03/25 21:47 Order name: CBC Smear Scan; Complete Time: 23:48 [facility] 03/25 19:48 Order name: Urine Dipstick-Ancillary (obtain specimen); Complete Time: 22:15 [facility] 03/25 21:22 Order name: CT Soft Tissue Neck W/contr [facility] 03/25 22:20 Order name: Urine Dipstick--Ancillary (enter results); Complete Time: 23:48 [facility] 03/25 22:20 Order name: Urine --Ancillary (enter results); Complete Time: 23:48 [facility] 03/25 19:48 Order name: Urine Test (obtain specimen); Complete Time: 22:15 [facility] Administered Medications: 03/25 20:15 Drug: NS 0.9% 1000 ml Route: IV; Rate: 1000 ml; Site: right antecubital; vc 21:55 Drug: NS 0.9% 1000 ml Route: IV; Rate: 1000 ml; Site: right antecubital; vc 21:55 Drug: Zofran (Ondansetron) 4 mg Route: IVP; Site: right antecubital; vc 03/26 00:13 Follow up: Response: No adverse reaction vc 00:13 Drug: Bicillin L-A 1.2 million units Route: IM; Site: left ventrogluteal; vc 00:13 Follow up: Response: No adverse reaction vc 00:40 Follow up: Response: No adverse reaction vc Disposition: 06:18 Co-signature as Attending Physician, [facility] Disposition: 03/26/20 00:02 Discharged to Home. Impression: Exudative Pharyngitis, Dehydration, Tonsilitis. - Condition is Stable. - Discharge Instructions: Tonsillitis, Ggjc-hg-Eedz, Pharyngitis, Moln-vf-Zgwn, Dehydration, Adult, Fqpt-oe-Avcr. - Prescriptions for Zofran ODT 4 mg Oral tablet,disintegrating - place 1 tablet by TRANSLINGUAL route every 8 hours As needed; 6 tablet. Tylenol- Codeine #3 300-30 mg Oral Tablet - take 2 tablets by ORAL route every 6 hours As needed; 20 tablet. - Medication Reconciliation Form, Thank You Letter, Antibiotic Education, Prescription Opioid Use form. - Follow up: Private Physician; When: 1 - 2 days; Reason: Worsening of condition, Recheck today's complaints, Continuance of care, Re-evaluation by your physician. Follow up: Kyung Benoit MD; When: 1 - 2 days; Reason: Worsening of condition, Recheck today's complaints. - Problem is new. - Symptoms have improved. Signatures: Dispatcher [employer] EDMS Dianna Torrez RN RN vc Lewis, Lynsay, RN RN 1 Ez Espinal MD MD 7 Corrections: (The following items were deleted from the chart) 00:03 00:02 03/26/2020 00:02 Discharged to Home. Impression: Exudative Pharyngitis; mh7 Dehydration. Condition is Stable. Forms are Medication Reconciliation Form, Thank You Letter, Antibiotic Education, Prescription Opioid Use. Follow up: Private Physician; When: 1 - 2 days; Reason: Worsening of condition, Recheck today's complaints, Continuance of care, Re-evaluation by your physician. Follow up: Kyung Benoit; When: 1 - 2 days; Reason: Worsening of condition, Recheck today's complaints. Problem is new. Symptoms have improved. mh7 00:41 00:03 03/26/2020 00:02 Discharged to Home. Impression: Exudative Pharyngitis; vc Dehydration; Tonsilitis. Condition is Stable. Discharge Instructions: Tonsillitis, Hjjz-ec-Maas, Pharyngitis, Pgfn-xf-Tbnf. Forms are Medication Reconciliation Form, Thank You Letter, Antibiotic Education, Prescription Opioid Use. Follow up: Private Physician; When: 1 - 2 days; Reason: Worsening of condition, Recheck today's complaints, Continuance of care, Re-evaluation by your physician. Follow up: Kyung Benoit; When: 1 - 2 days; Reason: Worsening of condition, Recheck today's complaints. Problem is new. Symptoms have improved. mh7
[2020-03-26] MEDS ORDERED: PEN G BENZ LA 1.2MU/2ML SYRINGE IM ONE (00:16)
[2020-03-26 01:53] VITALS: O2SAT 100
[2020-03-26 01:56] VITALS: BP 133/86; TEMP 100.1
--- NOTE | 2020-03-26 14:52 | RAD REPORT ---
EXAM DESCRIPTION: CT Neck With Intravenous Contrast CLINICAL HISTORY: The patient is 24 years old and is Female; SORE THROAT TECHNIQUE: Axial computed tomography images of the neck with intravenous contrast. Sagittal and co elyse reformatted images were created and reviewed. This CT exam was performed using one or more of the following dose reduction techniques: automated exposure control, adjustment of the mA and/or k V according to patient size, and/or use of iterative reconstruction technique. DLP: 279 mGy*cm COMPARISON: None. FINDINGS: OROPHARYNX: Symmetrical enlargement of the tonsillar pillars with striated enhancement pattern and advanced narrowing of the oropharyngeal airway. Thickening of the soft palate. Nodular thickening of the lingual tonsils. HYPOPHARYNX: Unremarkable. LARYNX: Unremarkable. Normal epiglottis. TRACHEA: Unremarkable. RETROPHARYNGEAL SPACE: Unremarkable. SUBMANDIBULAR/PAROTID GLANDS: Unremarkable. Glands are normal in size. THYROID: Unremarkable. No enlarged or calcified nodules. BONES/JOINTS: Reversal of cervical lordosis. No acute fracture. SOFT TISSUES: Unremarkable. VASCULATURE: No acute findings. LYMPH NODES: Markedly enlarged bilateral cervical lymphadenopathy with largest lymph noted in leve l IIB. SINUSES: Paranasal sinuses are clear. MASTOID AIR CELLS: Mastoid air cells are well pneumatized. ORBITS: The globes and orbits are within normal limits. LUNG APICES: Apical lung zones are clear. IMPRESSION: 1. Thickening of the oropharyngeal structures with striated enhancement pattern of the tonsillar pillars most suggestive of tonsillitis/pharyngitis. 2. Enlarged reactive bilateral cervical lymphadenopathy. Electronically signed by: Yamil Juarez DO 03/25/2020 10:23 PM CDT Due to temporary technical issues with the PACS/Fluency reporting system, reports are being signed by the in house radiologist without review as a courtesy to ensure prompt reporting. The interpreting r adiologist is fully responsible for the content of the report.
== END 2020-03-26 00:41 | disposition home or self-care (01) ==
LOC: ER 16:47
DX: E86.0 Dehydration (principal); J03.90 Acute tonsillitis, unspecified; F17.210 Nicotine dependence, cigarettes, uncomplicated
CPT/HCPCS: 36415; 70491; 80048; 81003; 81025; 85025; 87070; 87081; 87804; 96372; 96374; 99284; J0561; J2405; J7030; Q9967

== ENCOUNTER 2020-05-29 07:21 | Emergency (ER) | payer SELFPAY ==
--- OUTSIDE RECORDS SUMMARY | 2020-05-29 07:25 | XMS REPORT | Continuity of Care Document ---
:1995 Author Organization [facility] t Address 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, [facility] [id number] 10:59:06 11:59:06 Visit Adc Claudia Wallis [id number] [place] [id number] Professio [phone] [address] 2019-04-05 2019-04-05 Routine Powell, [facility] [id number] 08:44:38 09:20:31 Dori Wallis [id number] Visit [place] [id number] Professio [phone] [address] 2019-03-15 2019-03-15 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 [facility] 1, Adc Lab [facility] [id number] 10:32:03 10:47:03 Visit Kadi [id number] [place] [id number] [place] [phone] 2019-03-15 2019-03-15 Initial [facility] [id number] 08:59:50 10:08:54 Dori Wallis [id number] Visit [place] [id number] Professio [phone] [address] 2019-03-15 2019-03-15 Orders Doctor ERWIN [id number] 00:00:00 00:00:00 Only Unassigned, [place] [id number] [place] [facility] [id number] [phone] [id number] 2019-03-15 2019-03-15 Telephone [facility] [id number] 00:00:00 00:00:00 Dori Wallis [id number] [place] [id number] Professio [phone] [address] Results This patient has no known results.
[2020-05-29 08:18] LABS: Basophils % 0.9 % (0-1.3); Hematocrit 34.2 % (36.0-45.0); Lymphocytes % 33.8 % (15.3-44.8); MPV 8.9 fL (7.6-11.3); RBC Red Blood Cell Count 3.94 M/uL (3.86-4.86)
[2020-05-29 08:20] LABS: Protime INR 1.04
[2020-05-29] MEDS ORDERED: MORPHINE 4 MG/ML SYR ONE (08:34)
[2020-05-29] MEDS ORDERED: ONDANSETRON 4 MG/2 ML VIAL ONE (08:34)
[2020-05-29 08:39] LABS: ALT/SGPT 19 U/L (12-78); AST/SGOT 12 U/L (15-37); Albumin 3.6 g/dL (3.4-5.0); Alkaline Phosphatase 48 U/L (45-117); BUN Blood Urea Nitrogen 12 mg/dL (7-18); Bicarbonate 25 mmol/L (21-32); Bilirubin Direct 0.1 mg/dL (0-0.2); Bilirubin Total 0.6 mg/dL (0.2-1.0); Glucose Level 92 mg/dL (74-106); Magnesium 1.9 mg/dL (1.8-2.4); NT PRO-BNP 84 pg/mL (<125); Potassium 4.2 mmol/L (3.5-5.1); Protein, Total 7.3 g/dL (6.4-8.2); Sodium Level 140 mmol/L (136-145); Troponin (Emerg Dept Use Only) < 0.02 ng/mL (0.0-0.045)
--- NOTE | 2020-05-29 09:08 | RAD REPORT ---
EXAM DESCRIPTION: RAD - Chest Single View - 05/29/2020 9:00 am CLINICAL HISTORY: CHEST PAIN Chest pain. COMPARISON: Chest Pa And Lat (2 Views) dated 01/05/2016; CHEST SINGLE VIEW dated 04/29/2011 FINDINGS: Portable technique limits examination quality. The lungs are grossly clear. The heart is normal in size. No displaced fractures. IMPRESSION: No acute intrathoracic process suspected.
[2020-05-29 09:15] LABS: Urine Blood TRACE (NEG); Urine Glucose NEGATIVE (NEG); Urine Protein NEGATIVE (NEG); Urine Specific Gravity 1.025 (1.005-1.030)
--- NOTE | 2020-05-29 09:43 | EDPHYS ---
Physician Documentation [facility] Name: Minh Gallardo Age: 24 yrs Sex: Female : 1995 Arrival Date: 05/29/2020 Time: : Bed 7 Private MD: ED Physician Juan Vasquez HPI: 05/29 09:45 This 24 yrs old Black Female presents to ER via Ambulatory with complaints of Chest kdr Pain. 09:45 The patient or guardian reports chest pain that is located primarily in the substernal kdr area. The pain radiates to left neck. Associated signs and symptoms: Pertinent positives: shortness of breath, Feels like a gas bubble. The chest pain is described as aching, dull, a pressure. Duration: The patient or guardian reports multiple episodes, that are intermittent, that wax and wane, with no pattern. Severity of pain: At its worst the pain was mild moderate just prior to arrival, in the emergency department the pain is unchanged. The patient has experienced similar episodes in the past, multiple times. The patient has not recently seen a physician. 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 - Social history:: Smoking status: Patient/guardian denies using tobacco. ROS: 09:45 Constitutional: Negative for fever, chills, and weight loss, Eyes: Negative for injury, kdr pain, redness, and discharge, ENT: Negative for injury, pain, and discharge, Neck: Negative for injury, pain, and swelling, Respiratory: Negative for shortness of breath, cough, wheezing, and pleuritic chest pain, Abdomen/GI: Negative for abdominal pain, nausea, vomiting, diarrhea, and constipation, Back: Negative for injury and pain, : Negative for injury, bleeding, discharge, and swelling, MS/Extremity: Negative for injury and deformity, Skin: Negative for injury, rash, and discoloration, Neuro: Negative for headache, weakness, numbness, tingling, and seizure activity. Psych: Negative for depression, anxiety, suicide ideation, homicidal ideation, and hallucinations, Allergy/Immunology: Negative for hives, rash, and allergies, Endocrine: Negative for neck swelling, polydipsia, polyuria, polyphagia, and marked weight changes, Hematologic/Lymphatic: Negative for swollen nodes, abnormal bleeding, and unusual bruising. 09:45 Cardiovascular: Positive for chest pain, Negative for edema, orthopnea, palpitations, paroxysmal nocturnal dyspnea. Exam: 07:54 ECG was reviewed by the Attending Physician. kdr 09:45 Constitutional: This is a well developed, well nourished patient who is awake, alert, kdr and in no acute distress. Head/Face: Normocephalic, atraumatic. Eyes: Pupils equal round and reactive to light, extra-ocular motions intact. Lids and lashes normal. Conjunctiva and sclera are non-icteric and not injected. Cornea within normal limits. Periorbital areas with no swelling, redness, or edema. Neck: Trachea midline, no thyromegaly or masses palpated, and no cervical lymphadenopathy. Supple, full range of motion without nuchal rigidity, or vertebral point tenderness. No Meningismus. Chest/axilla: Normal chest wall appearance and motion. Nontender with no deformity. No lesions are appreciated. Cardiovascular: Regular rate and rhythm with a normal S1 and S2. No gallops, murmurs, or rubs. Normal PMI, no JVD. No pulse deficits. Respiratory: Lungs have equal breath sounds bilaterally, clear to auscultation and percussion. No rales, rhonchi or wheezes noted. No increased work of breathing, no retractions or nasal flaring. Abdomen/GI: Soft, non-tender, with normal bowel sounds. No distension or tympany. No guarding or rebound. No evidence of tenderness throughout. Back: No spinal tenderness. No costovertebral tenderness. Full range of motion. Skin: Warm, dry with normal turgor. Normal color with no rashes, no lesions, and no evidence of cellulitis. MS/ Extremity: Pulses equal, no cyanosis. Neurovascular intact. Full, normal range of motion. Neuro: Awake and alert, GCS 15, oriented to person, place, time, and situation. Cranial nerves II-XII grossly intact. Motor strength 5/5 in all extremities. Sensory grossly intact. Cerebellar exam normal. Normal gait. Psych: Awake, alert, with orientation to person, place and time. Behavior, mood, and affect are within normal limits. Vital Signs: 07:40 BP 127 / 80; Pulse 72; Resp 16; Temp 97.9; Pulse Ox 100% ; Weight 81.65 kg; Height 5 sv ft. 0 in. (152.40 cm); Pain 9/10; 08:45 BP 121 / 83; Pulse 49; Resp 16; Pulse Ox 99% on R/A; hb 09:30 BP 126 / 80; Pulse 56; Resp 16; Pulse Ox 99% on R/A; hb 07:40 Body Mass Index 35.15 (81.65 kg, 152.40 cm) sv MDM: 09:42 Patient medically screened. kdr 09:45 HEART Score: History: Slightly Suspicious (0), ECG: Normal (0), Age: < or = 45 years kdr (0), Risk Factors: 1 or 2 risk factors (1), Troponin: < or = 1 x Normal Limit (0), Total Score = 1. Data reviewed: vital signs, nurses notes, lab test result(s), EKG, radiologic studies. 05/29 07:37 Order name: Basic Metabolic Panel kdr 05/29 07:37 Order name: CBC with Diff kdr 05/29 07:37 Order name: LFT's kdr 05/29 07:37 Order name: Magnesium; Complete Time: 09:36 kdr 05/29 07:37 Order name: NT PRO-BNP; Complete Time: 09:36 kdr 05/29 07:37 Order name: PT-INR; Complete Time: 09:36 kdr 05/29 07:37 Order name: Troponin (emerg Dept Use Only); Complete Time: 09:36 kdr 05/29 07:37 Order name: XRAY Chest (1 view); Complete Time: 09:36 kdr 05/29 07:37 Order name: Basic Metabolic Panel; Complete Time: 09:36 EDMS 05/29 07:37 Order name: CBC with Automated Diff; Complete Time: 09:36 EDMS 05/29 07:37 Order name: Liver (Hepatic) Function; Complete Time: 09:36 EDMS 05/29 08:53 Order name: Urine Dipstick--Ancillary (enter results) eb 05/29 08:53 Order name: Urine --Ancillary (enter results) eb 05/29 07:37 Order name: EKG; Complete Time: 07:38 kdr 05/29 07:37 Order name: Cardiac monitoring; Complete Time: 07:45 kdr 05/29 07:37 Order name: EKG - Nurse/Tech; Complete Time: 07:45 kdr 05/29 07:37 Order name: IV Saline Lock; Complete Time: 08:52 kdr 05/29 07:37 Order name: Labs collected and sent; Complete Time: 08:52 kdr 05/29 07:37 Order name: O2 Per Protocol; Complete Time: 07:45 kdr 05/29 07:37 Order name: O2 Sat Monitoring; Complete Time: 07:45 kdr 05/29 07:37 Order name: Urine Test (obtain specimen); Complete Time: 08:52 kdr EC:54 Rate is 45 beats/min. Rhythm is regular, Sinus bradycardia with No ectopy. QRS [place] is kdr Normal. [place] interval is normal. QRS interval is normal. QT interval is normal. Clinical impression: Sinus bradycardia. Administered Medications: 08:25 Drug: morphine 4 mg Route: IVP; Site: right antecubital; hb 09:05 Follow up: Response: No adverse reaction hb 08:25 Drug: Zofran (Ondansetron) 4 mg Route: IVP; Site: right antecubital; hb 09:05 Follow up: Response: No adverse reaction hb 10:04 Drug: [place] 5 mg-325 mg 1 tabs Route: PO; hb 10:05 Follow up: Response: Medication administered at discharge. hb 10:04 CANCELLED (unavailable): TORadol 10 mg PO once hb 10:05 Drug: TORadol - Ketorolac 15 mg Route: IVP; Site: right antecubital; hb 10:05 Follow up: Response: Medication administered at discharge. hb Disposition: 05/29/20 09:42 Discharged to Home. Impression: Chest pain, unspecified, Other chest pain. - Condition is Stable. - Discharge Instructions: Nonspecific Chest Pain, Veow-[id number]-[id number]. - Medication Reconciliation Form, Thank You Letter form. - Follow up: Private Physician; When: 2 - 3 days; Reason: If symptoms return, Further diagnostic work-up, Recheck today's complaints, Continuance of care, Re-evaluation by your physician. - Problem is an acute exacerbation. - Symptoms have improved. Signatures: Dispatcher [employer] EDJuan Duran MD MD kdr Elizabeth Esteves, RN RN hb Flavia Armendariz RN RN [id number] Corrections: (The following items were deleted from the chart) 10:04 09:55 TORadol 10 mg PO once ordered. kdr 10:06 09:42 05/29/2020 09:42 Discharged to Home. Impression: Chest pain, unspecified; Other hb chest pain. Condition is Stable. Forms are Medication Reconciliation Form, Thank You Letter, Antibiotic Education, Prescription Opioid Use. Follow up: Private Physician; When: 2 - 3 days; Reason: If symptoms return, Further diagnostic work-up, Recheck today's complaints, Continuance of care, Re-evaluation by your physician. Problem is an acute exacerbation. Symptoms have improved. kdr
--- NOTE | 2020-05-29 09:43 | ER ---
Nurse's Notes [facility] Name: Minh Gallardo Age: 24 yrs Sex: Female : 1995 Arrival Date: 05/29/2020 Time: : Bed 7 Private MD: Diagnosis: Chest pain, unspecified;Other chest pain Presentation: 05/29 07:40 Chief complaint: Patient states: intermittent midsternal chest tightness pain that sv radiates to the back. Denies SOB/n/v. Coronavirus screen: Client denies travel out of the [place] in the last 14 days. At this time, the client does not indicate any symptoms associated with coronavirus-19. Ebola Screen: No symptoms or risks identified at this time. Initial Sepsis Screen: Does the patient meet any 2 criteria? No. Patient's initial sepsis screen is negative. Does the patient have a suspected source of infection? No. Patient's initial sepsis screen is negative. Risk Assessment: Do you want to hurt yourself or someone else? Patient reports no desire to harm self or others. Onset of symptoms was May 2020. 07:40 Method Of Arrival: Ambulatory sv 07:40 Acuity: MARY 3 sv Triage Assessment: 07:42 General: Appears in no apparent distress. Behavior is calm, cooperative. Pain: Pain hb currently is 9 out of 10 on a pain scale. EENT: No signs and/or symptoms were reported regarding the EENT system. Neuro: Level of Consciousness is awake, alert, obeys commands, Oriented to person, place, time, situation. Cardiovascular: Capillary refill < 3 seconds Patient's skin is warm and dry. Respiratory: Respiratory effort is even, unlabored, Respiratory pattern is regular, symmetrical. GI: No signs and/or symptoms were reported involving the gastrointestinal system. : No signs and/or symptoms were reported regarding the genitourinary system. Derm: Skin is pink, warm \T\ dry. Musculoskeletal: No signs and/or symptoms reported regarding the musculoskeletal system. REED DIPPER: 08:00 LMP 05/08/2020 hb Historical: - Allergies: 07:45 No Known Allergies; hb - Home Meds: 07:45 Unknown HTN med [Active]; hb - PMHx: 07:45 Depression; Ovarian cyst; postparturm eclampsia; Hypertension; hb - PSHx: 07:45 right oophorectomy; Appendectomy; hb - Immunization history:: Adult Immunizations up to date. - Social history:: Smoking status: Patient/guardian denies using tobacco. Screenin:43 Abuse screen: Denies threats or abuse. Denies injuries from another. Nutritional hb screening: No deficits noted. Tuberculosis screening: No symptoms or risk factors identified. Fall Risk None identified. Assessment: 07:43 General: see triage. hb 08:45 Reassessment: Patient appears in no apparent distress at this time. Patient and/or hb family updated on plan of care and expected duration. Pain level reassessed. Patient is alert, oriented x 3, equal unlabored respirations, skin warm/dry/pink. 09:47 Reassessment: Pt c/o chest pain 10, Dr. Vasquez notified. hb 09:48 Reassessment: Dr. Vasquez at bedside. hb Vital Signs: 07:40 BP 127 / 80; Pulse 72; Resp 16; Temp 97.9; Pulse Ox 100% ; Weight 81.65 kg; Height 5 sv ft. 0 in. (152.40 cm); Pain 9/10; 08:45 BP 121 / 83; Pulse 49; Resp 16; Pulse Ox 99% on R/A; hb 09:30 BP 126 / 80; Pulse 56; Resp 16; Pulse Ox 99% on R/A; hb 07:40 Body Mass Index 35.15 (81.65 kg, 152.40 cm) sv ED Course: 07:23 Patient arrived in ED. bp1 07:36 Juan Vasquez MD is Attending Physician. kdr 07:43 Patient has correct armband on for positive identification. Placed in gown. Bed in low hb position. Call light in reach. Side rails up X 1. teletypesetter monitor on. Pulse ox on. NIBP on. 07:44 Triage completed. sv 07:44 Arm band placed on. sv 07:45 Elizabeth Esteves, RN is Primary Nurse. hb 07:47 Patient maintains SpO2 saturation greater than 95% on room air. hb 08:18 LFT's Sent. sv 08:18 CBC with Diff Sent. sv 08:18 Basic Metabolic Panel Sent. sv 08:28 Radiology exam delayed due to test not completed at this time. hb2 08:56 XRAY Chest (1 view) In Process Unspecified. EDMS 10:06 No provider procedures requiring assistance completed. IV discontinued, intact, hb bleeding controlled, No redness/swelling at site. Administered Medications: 08:25 Drug: morphine 4 mg Route: IVP; Site: right antecubital; hb 09:05 Follow up: Response: No adverse reaction hb 08:25 Drug: Zofran (Ondansetron) 4 mg Route: IVP; Site: right antecubital; hb 09:05 Follow up: Response: No adverse reaction hb 10:04 Drug: Strawberry 5 mg-325 mg 1 tabs Route: PO; hb 10:05 Follow up: Response: Medication administered at discharge. hb 10:04 CANCELLED (unavailable): TORadol 10 mg PO once hb 10:05 Drug: TORadol - Ketorolac 15 mg Route: IVP; Site: right antecubital; hb 10:05 Follow up: Response: Medication administered at discharge. hb Outcome: 09:42 Discharge ordered by . kdr 10:06 Discharged to home ambulatory. hb 10:06 Condition: stable 10:06 Discharge instructions given to patient, Instructed on discharge instructions, follow up and referral plans. medication usage, Demonstrated understanding of instructions, follow-up care, medications. 10:06 Patient left the ED. hb Signatures: Dispatcher [employer] EDMS Kyung Milton RN RN sv Rittger, Kevin, MD MD kdr Baxter, Heather, RN RN hb Bias, Harlan hbAllison English bp1
[2020-05-29] MEDS ORDERED: HYDROCODONE/APAP 5/325 MG TAB ONE (10:10)
[2020-05-29] MEDS ORDERED: KETOROLAC 30 MG/ML INJ ONE (10:10)
[2020-05-29 10:15] VITALS: TEMP 97.9
[2020-05-29 10:16] VITALS: O2SAT 99
[2020-05-29 10:17] VITALS: BP 126/80
--- NOTE | 2020-05-30 09:34 | EKG ---
Test Date: 2020-05-29 Test Time: 07:44:21 Investment Representative: HB MEASUREMENT RESULTS: Intervals: Rate: 45 SC: 150 QRSD: 86 QT: 428 QTc: 370 [place]: P: 27 SC: 150 QRS: 57 T: 40 INTERPRETIVE STATEMENTS: Marked sinus bradycardia Abnormal ECG Compared to ECG 04/29/2011 00:55:43 Right-axis deviation no longer present ST (T wave) deviation no longer present Electronically Signed On 05-30-20 09:31:11 CDT by Dutch Lee
== END 2020-05-29 10:06 | disposition home or self-care (01) ==
LOC: ER 07:21
DX: R07.89 Other chest pain (principal); I10 Essential (primary) hypertension
CPT/HCPCS: 36415; 71045; 80048; 80076; 81003; 81025; 83735; 83880; 84484; 85025; 85610; 93005; 96374; 96375; 99285; J2405

== ENCOUNTER 2022-05-07 13:24 | Emergency (ER) | payer SELFPAY ==
--- OUTSIDE RECORDS SUMMARY | 2022-05-07 13:28 | XMS REPORT | Continuity of Care Document ---
:1995 Author Organization [facility] t Address [address] [place] [address] Care Team Providers Name Role Phone RENO OLIVIER Primary Care Physician Unavailable ROCAEL ANDRADE Attending Clinician Unavailable Rocael Marti Attending Clinician DORI FOWLER Attending Clinician Unavailable Dori Fowler MD Attending Clinician Ultrasound, Ad[facility] Mfm Attending Clinician Unavailable Elena Barnard MD Attending Clinician 1, [facility] Lab Attending Clinician Unavailable Doctor Unassigned, [place] Attending Clinician Unavailable Payers Payer Name Policy Type Policy Number Effective Date Expiration Date S ource Problems Condition Condition Condition Status Onset Resolution Last Treating Co mments Source Name Details Category Date Date Treatment Clinician Date Elevated Elevated Disease Active 2018-08 Unive rs blood blood 0-26 ity of pressure pressure 00:00: [place] reading 00 Medical Branch Hypertensi Hypertensi Disease Active 2018-08 U nivers on in on in 0-26 [place] , , [place] preeclamps preeclamps 00 Me dical ia, ia, Branch severe, severe, delivered/ delivered/ Preeclamps Preeclamps Disease Active 2018-08 U nivers ia in [place] in 0-26 [place] period period 00 Medical [place] Morbid Morbid Disease Active Univers obesity obesity 9-19 [place] of with body [place] body [place] mass index mass index 00 Me dical of of Branch 40.0-49.9 40.0-49.9 Morbid Morbid Disease Active Univers obesity obesity 9-19 [place] of with body with body 00:[place] mass index mass index 00 Me dical of of Branch 40.0-49.9 40.0-49.9 Bipolar Bipolar Disease Active Univers disorder disorder 6-18 ity of with with 00:00: [place] depression depression 00 Me dical Branch Bipolar Bipolar Disease Active Univers disorder disorder 6-18 ity of with with 00:00: [place] depression depression 00 Me dical Branch 37 weeks 37 weeks Disease Active Unive rs gestation gestation 6-13 ity of of of 00:00: [place] 00 [facility] Cyst of Cyst of Disease Active Univers uterus uterus 6-13 [place] of determined determined [place] by by 00 Medical ultrasound ultrasound Br anch Group B Group B Disease Active Univers streptococ streptococ 6-13 it y of [facility] 00:00: [place] carriage carriage 00 Medica l complicati complicati Br anch ng ng Reactive Reactive Disease Active Unive rs depression depression 6-04 it y of 00:00: [place] 00 [facility] High-risk High-risk Disease Active Uni vers 5-26 ity of in third in third 00:00: [place] trimester trimester 00 [facility] 1 1 Disease Active U nivers visit visit 5-26 ity of 06/08/16 06/08/16 00:00: [place] 00 [facility] Vaginitis Vaginitis Disease Active Uni vers affecting affecting 5-26 [place] of , , [place] current, current, 00 Medica l antepartum antepartum Br anch , third , third trimester trimester Allergies, Adverse Reactions, Alerts Allergy Allergy Status Severity Reaction(s) Onset Inactive Treating Comm ents Source Name Type Date Date Clinician NO KNOWN Drug Active Univers ALLERGIE Class ity of S [facility] Social History Social Habit Start Date Stop Date Quantity Comments Source ASSERTION 2018-09-08 University of 00:00:00 [facility] Exposure to Unable to assess Univers ity of SARS-CoV-2 [facility] (event) [place] Alcohol intake 2021-07-24 2021-07-24 Current University of 00:00:00 00:00:00 non-drinker of [facility] alcohol (finding) [place] Tobacco use and 2017-01-03 2017-01-03 Never used Universit y of exposure 00:00:00 00:00:00 [facility] History of 2016-05-06 Cigarette Smoker Universi ty of tobacco use 00:00:00 [facility] Tobacco Comment 2015-07-07 2015-07-07 quit smoking 1 Unive rsity of 00:00:00 00:00:00 week ago [facility] Sex Ass[birth year] At [birth year] Universit y of 00:00:00 00:00:00 [facility] Smoking Status Start Date Stop Date Source Former smoker 2017-01-03 00:00:00 2017-01-03 00:00:00 Universi ty of [facility] Medications Ordered Filled Start Stop Current Ordering Indication Dosage Frequency Signature Comments Components Source Medication Medication Date Date Medication? Clinician (SIG) Name Name ketorolac 2020-08 No 30mg 30 mg, Unive rs (TORADOL) 09-25 Intramuscu ity of injection 00:15: 23:19 [place], ONCE, [place] 30 mg 00 :00 1 dose, On Medical Sat Branch 07/24/21 at 1815, STEFANIE HYDROcodone 2020-08 No 1{tbl} 1 tablet, Univers -acetaminop 09-25 Oral, ity of hen (NORCO 00:15: 23:19 ONCE, 1 [place] 5) 5-325 mg 00 :00 dose, On [facility] tablet 1 Sat Branch tablet 07/24/21 at 1815, STEFANIE ibuprofen 2020-08 Yes [id number] 800mg Take 1 U nivers 800 mg 2-18 tablet by ity of tablet 00:00: mouth [place] [id number] every 6 Medical (six) Branch hours as needed for Pain (scale 4-6). amoxicillin 2020-08 No [id number] 1{tbl} Take 1 Univers -clavulanat -18 - tablet by it y of e 875-125 00:00: 05:59 mouth [place] mg per 00 :00 every 12 Medical tablet (twelve) Branch hours for 7 days. ferrous Yes [id number] 325mg Take 1 [place] sulfate 325 8-09 tablet by ity of mg (65 mg 00:00: mouth 2 [place] iron) EC 00 (two) Medical tablet times Branch daily. ferrous Yes [id number] 325mg Take 1 [place] sulfate 325 8-09 tablet by ity of mg (65 mg 00:00: mouth 2 [place] iron) EC 00 (two) Medical tablet times Branch daily. ferrous Yes [id number] 325mg Take 1 [place] sulfate 325 8-09 tablet by ity of mg (65 mg 00:00: mouth 2 [place] iron) EC 00 (two) Medical tablet times Branch daily. ferrous Yes [id number] 325mg Take 1 [place] sulfate 325 8-09 tablet by ity of mg (65 mg 00:00: mouth 2 [place] iron) EC 00 (two) Medical tablet times Branch daily. HYDROcodone 2016- Yes 1{tbl} Take 1 Un nando -acetaminop 6-16 tablet by ity of hen 5-325 00:00: mouth [place] mg tablet 00 every 6 Medical (six) Branch hours as needed for Pain (scale 4-6) or Pain (scale 7-10). buPROPion 2016- Yes 200mg Take 2 Unive rs 100 mg 6-16 tablets by ity of tablet 00:00: mouth [place] 00 daily Medical before a Branch meal. 2017- Yes 1{tbl} Take 1 Unive rs vitamin 6-16 tablet by ity of w/FA tablet 00:00: mouth [place] 00 daily. Medical Branch docusate 2017- Yes 240mg Take 1 Univer s calcium 240 6-16 capsule by it y of mg capsule 00:00: mouth once [place] 00 daily as Medical needed for Branch Constipati on. ferrous Yes 325mg Take 1 Univers sulfate 325 6-16 tablet by ity of mg (65 mg 00:00: mouth 2 [place] iron) 00 (two) Medical tablet times Branch daily. ibuprofen 2017- Yes 600mg Take 1 Unive rs 600 mg 6-16 tablet by ity of tablet 00:00: mouth [place] 00 every 6 Medical (six) Branch hours as needed for Pain (scale 1-3) or Pain (scale 4-6). Take with food or milk. HYDROcodone 2017-0 Yes 1{tbl} Take 1 Un nando -acetaminop 6-16 tablet by ity of hen 5-325 00:00: mouth [place] mg tablet 00 every 6 Medical (six) Branch hours as needed for Pain (scale 4-6) or Pain (scale 7-10). buPROPion 2017-0 Yes 200mg Take 2 Unive rs 100 mg 6-16 tablets by ity of tablet 00:00: mouth [place] 00 daily Medical before a Branch meal. 2017-0 Yes 1{tbl} Take 1 Unive rs vitamin 6-16 tablet by ity of w/FA tablet 00:00: mouth [place] 00 daily. Medical Branch docusate 2017-0 Yes 240mg Take 1 Univer s calcium 240 6-16 capsule by it y of mg capsule 00:00: mouth once [place] 00 daily as Medical needed for Branch Constipati on. ferrous 2017-0 Yes 325mg Take 1 Univers sulfate 325 6-16 tablet by ity of mg (65 mg 00:00: mouth 2 [place] iron) 00 (two) Medical tablet times Branch daily. ibuprofen 2017-0 Yes 600mg Take 1 Unive rs 600 mg 6-16 tablet by ity of tablet 00:00: mouth [place] 00 every 6 Medical (six) Branch hours as needed for Pain (scale 1-3) or Pain (scale 4-6). Take with food or milk. HYDROcodone 2017-0 Yes 1{tbl} Take 1 Un nando -acetaminop 6-16 tablet by ity of hen 5-325 00:00: mouth [place] mg tablet 00 every 6 Medical (six) Branch hours as needed for Pain (scale 4-6) or Pain (scale 7-10). buPROPion 2017-0 Yes 200mg Take 2 Unive rs 100 mg 6-16 tablets by ity of tablet 00:00: mouth [place] 00 daily Medical before a Branch meal. 2017-0 Yes 1{tbl} Take 1 Unive rs vitamin 6-16 tablet by ity of w/FA tablet 00:00: mouth [place] 00 daily. Medical Branch docusate 2017-0 Yes 240mg Take 1 Univer s calcium 240 6-16 capsule by it y of mg capsule 00:00: mouth [place] 00 daily as Medical needed for Branch Constipati on. ferrous 2017-0 Yes 325mg Take 1 Univers sulfate 325 6-16 tablet by ity of mg (65 mg 00:00: mouth 2 [place] iron) 00 (two) Medical tablet times Branch daily. ibuprofen 2017-0 Yes 600mg Take 1 Unive rs 600 mg 6-16 tablet by ity of tablet 00:00: mouth [place] 00 every 6 Medical (six) Branch hours as needed for Pain (scale 1-3) or Pain (scale 4-6). Take with food or milk. docusate 2017-0 Yes 240mg Take 1 Univer s calcium 240 6-16 capsule by it y of mg capsule 00:00: mouth once [place] 00 daily as Medical needed for Branch Constipati on. ferrous 2017-0 Yes 325mg Take 1 Univers sulfate 325 6-16 tablet by ity of mg (65 mg 00:00: mouth 2 [place] iron) 00 (two) Medical tablet times Branch daily. ibuprofen 2017-0 Yes 600mg Take 1 Unive rs 600 mg 6-16 tablet by ity of tablet 00:00: mouth [place] 00 every 6 Medical (six) Branch hours as needed for Pain (scale 1-3) or Pain (scale 4-6). Take with food or milk. HYDROcodone 2017-0 Yes 1{tbl} Take 1 Un nando -acetaminop 6-16 tablet by ity of hen 5-325 00:00: mouth [place] mg tablet 00 every 6 Medical (six) Branch hours as needed for Pain (scale 4-6) or Pain (scale 7-10). buPROPion 2017-0 Yes 200mg Take 2 Unive rs 100 mg 6-16 tablets by ity of tablet 00:00: mouth [place] 00 daily Medical before a Branch meal. 2017-0 Yes 1{tbl} Take 1 Unive rs vitamin 6-16 tablet by ity of w/FA tablet 00:00: mouth [place] 00 daily. Medical Branch docusate 2017-0 Yes 240mg Take 1 Univer s calcium 240 6-16 capsule by it y of mg capsule 00:00: mouth [place] 00 daily as Medical needed for Branch Constipati on. ferrous 2017-0 Yes 325mg Take 1 Univers sulfate 325 6-16 tablet by ity of mg (65 mg 00:00: mouth 2 [place] iron) 00 (two) Medical tablet times Branch daily. ibuprofen 2017-0 Yes 600mg Take 1 Unive rs 600 mg 6-16 tablet by ity of tablet 00:00: mouth [place] 00 every 6 Medical (six) Branch hours as needed for Pain (scale 1-3) or Pain (scale 4-6). Take with food or milk. HYDROcodone 2017-0 Yes 1{tbl} Take 1 Un nando -acetaminop 6-16 tablet by ity of hen 5-325 00:00: mouth [place] mg tablet 00 every 6 Medical (six) Branch hours as needed for Pain (scale 4-6) or Pain (scale 7-10). buPROPion 2017-0 Yes 200mg Take 2 Unive rs 100 mg 6-16 tablets by ity of tablet 00:00: mouth [place] 00 daily Medical before a Branch meal. 2017-0 Yes 1{tbl} Take 1 Unive rs vitamin 6-16 tablet by ity of w/FA tablet 00:00: mouth [place] 00 daily. Medical Branch docusate 2017-0 Yes 240mg Take 1 Univer s calcium 240 6-16 capsule by it y of mg capsule 00:00: mouth once [place] 00 daily as Medical needed for Branch Constipati on. ferrous 2017-0 Yes 325mg Take 1 Univers sulfate 325 6-16 tablet by ity of mg (65 mg 00:00: mouth 2 [place] iron) 00 (two) Medical tablet times Branch daily. ibuprofen 2017-0 Yes 600mg Take 1 Unive rs 600 mg 6-16 tablet by ity of tablet 00:00: mouth [place] 00 every 6 Medical (six) Branch hours as needed for Pain (scale 1-3) or Pain (scale 4-6). Take with food or milk. HYDROcodone 2017-0 Yes 1{tbl} Take 1 Un nando -acetaminop 6-16 tablet by ity of hen 5-325 00:00: mouth [place] mg tablet 00 every 6 Medical (six) Branch hours as needed for Pain (scale 4-6) or Pain (scale 7-10). buPROPion 2017-0 Yes 200mg Take 2 Unive rs 100 mg 6-16 tablets by ity of tablet 00:00: mouth [place] 00 daily Medical before a Branch meal. 2017-0 Yes 1{tbl} Take 1 Unive rs vitamin 6-16 tablet by ity of w/FA tablet 00:00: mouth [place] 00 daily. Medical Branch docusate 2017-0 Yes 240mg Take 1 Univer s calcium 240 6-16 capsule by it y of mg capsule 00:00: mouth once [place] 00 daily as Medical needed for Branch Constipati on. ferrous 2017-0 Yes 325mg Take 1 Univers sulfate 325 6-16 tablet by ity of mg (65 mg 00:00: mouth 2 [place] iron) 00 (two) Medical tablet times Branch daily. ibuprofen 2017-0 Yes 600mg Take 1 Unive rs 600 mg 6-16 tablet by ity of tablet 00:00: mouth [place] 00 every 6 Medical (six) Branch hours as needed for Pain (scale 1-3) or Pain (scale 4-6). Take with food or milk. HYDROcodone 2017-0 Yes 1{tbl} Take 1 Un nando -acetaminop 6-16 tablet by ity of hen 5-325 00:00: mouth [place] mg tablet 00 every 6 Medical (six) Branch hours as needed for Pain (scale 4-6) or Pain (scale 7-10). buPROPion 2017-0 Yes 200mg Take 2 Unive rs 100 mg 6-16 tablets by ity of tablet 00:00: mouth [place] 00 daily Medical before a Branch meal. 2017-0 Yes 1{tbl} Take 1 Unive rs vitamin 6-16 tablet by ity of w/FA tablet 00:00: mouth [place] 00 daily. Medical Branch docusate 20170 Yes 240mg Take 1 Univer s calcium 240 6-16 capsule by it y of mg capsule 00:00: mouth once [place] 00 daily as Medical needed for Branch Constipati on. ferrous 2017-0 Yes 325mg Take 1 Univers sulfate 325 6-16 tablet by ity of mg (65 mg 00:00: mouth 2 [place] iron) 00 (two) Medical tablet times Branch daily. ibuprofen 2017-0 Yes 600mg Take 1 Unive rs 600 mg 6-16 tablet by ity of tablet 00:00: mouth [place] 00 every 6 Medical (six) Branch hours as needed for Pain (scale 1-3) or Pain (scale 4-6). Take with food or milk. phenazopyri 2016-0 Yes 200mg Take 1 Tab Univers dine 3-23 by mouth 3 ity of (PYRIDIUM) 00:00: (three) [place] 200 mg 00 times Medical tablet daily. Branch sulindac 2016-0 Yes 200mg Take 1 Tab Un nando (CLINORIL) 3-23 by mouth 2 ity of 200 mg 00:00: (two) [place] tablet 00 times Medical daily. Branch phenazopyri 2016-0 Yes 200mg Take 1 Tab Univers dine 3-23 by mouth 3 ity of (PYRIDIUM) 00:00: (three) [place] 200 mg 00 times Medical tablet daily. Branch sulindac 2016-0 Yes 200mg Take 1 Tab Un nad[place] (CLINORIL) 3-23 by mouth 2 ity of 200 mg 00:00: (two) [place] tablet 00 times Medical daily. Branch phenazopyri 2016-0 Yes 200mg Take 1 Tab Univers dine 3-23 by mouth 3 ity of (PYRIDIUM) 00:00: (three) [place] 200 mg 00 times Medical tablet daily. Branch sulindac 2016-0 Yes 200mg Take 1 Tab Un nando (CLINORIL) 3-23 by mouth 2 ity of 200 mg 00:00: (two) [place] tablet 00 times Medical daily. Branch phenazopyri 2016-0 Yes 200mg Take 1 Tab Univers dine 3-23 by mouth 3 ity of (PYRIDIUM) 00:00: (three) [place] 200 mg 00 times Medical tablet daily. Branch sulindac 2016-0 Yes 200mg Take 1 Tab Un nando (CLINORIL) 3-23 by mouth 2 ity of 200 mg 00:00: (two) [place] tablet 00 times Medical daily. Branch phenazopyri 2016-0 Yes 200mg Take 1 Tab Univers dine 3-23 by mouth 3 ity of (PYRIDIUM) 00:00: (three) [place] 200 mg 00 times Medical tablet daily. Branch sulindac 2016-0 Yes 200mg Take 1 Tab Un nando (CLINORIL) 3-23 by mouth 2 ity of 200 mg 00:00: (two) [place] tablet 00 times Medical daily. Branch phenazopyri 2016-0 Yes 200mg Take 1 Tab Univers dine 3-23 by mouth 3 ity of (PYRIDIUM) 00:00: (three) [place] 200 mg 00 times Medical tablet daily. Branch sulindac 2016-0 Yes 200mg Take 1 Tab Un nando (CLINORIL) 3-23 by mouth 2 ity of 200 mg 00:00: (two) [place] tablet 00 times Medical daily. Branch phenazopyri 2015-0 Yes 200mg Take 1 Tab Univers dine 3-23 by mouth 3 ity of (PYRIDIUM) 00:00: (three) [place] 200 mg 00 times Medical tablet daily. Branch sulindac 2015-0 Yes 200mg Take 1 Tab Un nando (CLINORIL) 3-23 by mouth 2 ity of 200 mg 00:00: (two) [place] tablet 00 times Medical daily. Branch 2014-08 Yes 1{tbl} Take 1 Tab U nivers vitamin 2-02 by mouth ity of w/FA 00:00: daily. [place] ( 00 Medical RX OR Branch GENERIC EQUIVALENT) tablet 2014-08 Yes 1{tbl} Take 1 Tab U nivers vitamin 2-02 by mouth ity of w/FA 00:00: daily. [place] ( 00 Medical RX OR Branch GENERIC EQUIVALENT) tablet 2014-08 Yes 1{tbl} Take 1 Tab U nivers vitamin 2-02 by mouth ity of w/FA 00:00: daily. [place] ( 00 Medical RX OR Branch GENERIC EQUIVALENT) tablet 2014-08 Yes 1{tbl} Take 1 Tab U nivers vitamin 2-02 by mouth ity of w/FA 00:00: daily. [place] ( 00 Medical RX OR Branch GENERIC EQUIVALENT) tablet 2014-08 Yes 1{tbl} Take 1 Tab U nivers vitamin 2-02 by mouth ity of w/FA 00:00: daily. [place] ( 00 Medical RX OR Branch GENERIC EQUIVALENT) tablet 2014-08 Yes 1{tbl} Take 1 Tab U nivers vitamin 2-02 by mouth ity of w/FA 00:00: daily. [place] ( 00 Medical RX OR Branch GENERIC EQUIVALENT) tablet 2014-08 Yes 1{tbl} Take 1 Tab U nivers vitamin 2-02 by mouth ity of w/FA 00:00: daily. [place] ( 00 Medical RX OR Branch GENERIC EQUIVALENT) tablet 2014-08 Yes 1{tbl} Take 1 Tab U nivers vitamin 2-02 by mouth ity of w/FA 00:00: daily. [place] ( 00 Medical RX OR Branch GENERIC EQUIVALENT) tablet Immunizations Ordered Filled Immunization Date Status Comments [facility] e Immunization Name Name TDAP (ADACEL) 2019-03-18 Completed University of VACCINE 00:00:00 [facility] Branch TDAP (ADACEL) 2019-03-18 Completed University of VACCINE 00:00:00 [facility] Branch TDAP (ADACEL) 2019-03-18 Completed University of VACCINE 00:00:00 [facility] Branch TDAP (ADACEL) 2019-03-18 Completed University of VACCINE 00:00:00 [facility] Branch TDAP (ADACEL) 2019-03-18 Completed University of VACCINE 00:00:00 [facility] Branch TDAP (ADACEL) 2019-03-15 Completed University of VACCINE 00:00:00 [facility] Branch TDAP (ADACEL) 2019-03-15 Completed University of VACCINE 00:00:00 [facility] Branch TDAP (ADACEL) 2019-03-15 Completed University of VACCINE 00:00:00 [facility] TDAP (ADACEL) 2019-03-15 Completed University of VACCINE 00:00:00 [facility] TDAP (ADACEL) 2019-03-15 Completed University of VACCINE 00:00:00 [facility] TDAP (ADACEL) 2019-03-15 Completed University of VACCINE 00:00:00 [facility] Vital Signs Vital Name Observation Time Observation Value Comments Source Systolic blood 2021-07-24 22:23:00 131 mm[Hg] Univer sity of pressure [facility] Diastolic blood 2021-07-24 22:23:00 91 mm[Hg] Unive rsity of [facility] Heart rate 2021-07-24 22:23:00 75 /min [facility] Body temperature 2021-07-24 22:23:00 37 [facility]velina [facility] Respiratory rate 2021-07-24 22:23:00 18 /min [facility] Body weight 2021-07-24 22:23:00 88.451 kg [facility] BMI 2021-07-24 22:23:00 38.08 kg/m2 [facility] Oxygen saturation in 2021-07-24 22:23:00 99 /min [facility] Arterial blood by [facility] Pulse oximetry Branch Systolic blood 2019-04-25 15:42:00 121 mm[Hg] Univer sity of pressure [facility] Diastolic blood 2019-04-25 15:42:00 76 mm[Hg] Unive rsity of pressure [place] [facility] Heart rate 2019-04-25 15:42:00 91 /min [facility]i ty [facility] [place] [facility] Body temperature 2019-04-25 15:42:00 36.78 Evelina Univ ersity of [place] [facility] Respiratory rate 2019-04-25 15:42:00 18 /min Univ ersity of [place] [facility] Body height 2019-04-25 15:42:00 152.4 cm Universi ty of [place] [facility] Body weight 2019-04-25 15:42:00 96.344 kg Universi ty of [place] [facility] BMI 2019-04-25 15:42:00 41.48 kg/m2 Universi ty of [place] [facility] Systolic blood 2019-04-25 15:42:00 121 mm[Hg] Univer sity of pressure [place] [facility] Diastolic blood 2019-04-25 15:42:00 76 mm[Hg] Unive rsity of pressure [place] [facility] Heart rate 2019-04-25 15:42:00 91 /min Universi ty of [place] [facility] Body temperature 2019-04-25 15:42:00 36.78 Evelina Univ ersity of [place] [facility] Respiratory rate 2019-04-25 15:42:00 18 /min Univ ersity of [place] [facility] Body height 2019-04-25 15:42:00 152.4 cm Universi ty of [place] [facility] Body weight 2019-04-25 15:42:00 96.344 kg Universi ty of [place] [facility] BMI 2019-04-25 15:42:00 41.48 kg/m2 Universi ty of [place] [facility] Systolic blood 2019-04-05 13:55:00 129 mm[Hg] Univer sity of pressure [place] [facility] Diastolic blood 2019-04-05 13:55:00 75 mm[Hg] Unive rsity of pressure [place] [facility] Heart rate 2019-04-05 13:55:00 104 /min [facility]i ty [facility] [place] [facility] Body temperature 2019-04-05 13:55:00 36.89 Evelina Univ ersity of [place] [facility] Respiratory rate 2019-04-05 13:55:00 18 /min Univ ersity of [place] [facility] Body height 2019-04-05 13:55:00 152.4 cm Universi ty [facility] [place] [facility] Body weight 2019-04-05 13:55:00 96.163 kg Universi ty of [place] [facility] BMI 2019-04-05 13:55:00 41.40 kg/m2 [facility]i ty [facility] [place] [facility] Systolic blood 2019-04-05 13:55:00 129 mm[Hg] Univer sity of pressure [place] [facility] Diastolic blood 2019-04-05 13:55:00 75 mm[Hg] Unive rsity of pressure [place] [facility] Heart rate 2019-04-05 13:55:00 104 /min Universi ty of [place] [facility] Body temperature 2019-04-05 13:55:00 36.89 Evelina Univ ersity of [place] [facility] Respiratory rate 2019-04-05 13:55:00 18 /min Univ ersity of [place] [facility] Body height 2019-04-05 13:55:00 152.4 cm Universi ty [facility] [place] [facility] Body weight 2019-04-05 13:55:00 96.163 kg [facility]i ty [facility] [place] [facility] BMI 2019-04-05 13:55:00 41.40 kg/m2 [facility] [place] [facility] Systolic blood 2019-03-15 14:38:00 117 mm[Hg] Univer sity of pressure [place] [facility] Diastolic blood 2019-03-15 14:38:00 81 mm[Hg] Unive rsity of pressure [place] [facility] Heart rate 2019-03-15 14:38:00 90 /min Universi ty of [place] [facility] Body temperature 2019-03-15 14:38:00 36.72 Evelina Univ ersity of [place] [facility] Respiratory rate 2019-03-15 14:38:00 20 /min Univ ersity of [place] [facility] Body height 2019-03-15 14:38:00 152.4 cm [facility]i ty [facility] [place] [facility] Body weight 2019-03-15 14:38:00 94.802 kg [facility]i ty of [place] [facility] BMI 2019-03-15 14:38:00 40.82 kg/m2 [facility] [place] [facility] Systolic blood 2019-03-15 14:38:00 117 mm[Hg] Univer sity of pressure [place] [facility] Diastolic blood 2019-03-15 14:38:00 81 mm[Hg] Unive rsity of pressure [place] [facility] Heart rate 2019-03-15 14:38:00 90 /min [facility]i [facility] [place] [facility] Body temperature 2019-03-15 14:38:00 36.72 Evelina [facility] Respiratory rate 2019-03-15 14:38:00 20 /min [facility] Body height 2019-03-15 14:38:00 152.4 cm [facility] Body weight 2019-03-15 14:38:00 94.802 kg [facility] BMI 2019-03-15 14:38:00 40.82 kg/m2 [facility] Procedures Procedure Date / Time Performing Clinician Source Performed POCT TEST 2021-07-24 23:19:00 Rocael Andrade [facility] NOTICE OF PRIVACY 2021-07-24 22:11:52 Doctor Unassigned, No [facility] PRACTICES [facility] CONSENT/REFUSAL FOR 2021-07-24 22:11:23 Doctor Unassigned, No [facility] DIAGNOSIS AND TREATMENT [facility] POCT URINALYSIS W/O 2019-04-05 00:00:00 Dori Fowler [facility] SPECIFIC GRAVITY [facility] TDAP (ADACEL) 2019-03-18 13:11:37 Nery Harding [facility] [place] IMMUNIZATION [facility] GC & CHLAMYDIA 2019-03-15 16:03:00 Dori Fowler [facility] AMPLIFIED ASSAY [facility] ADC / LCC - DRUG SCREEN 2019-03-15 16:03:00 Dori Fowler [facility] TRIAGE [facility] SICKLE CELL SCREEN 2019-03-15 15:59:00 Dori Fowler [facility] TDAP (ADACEL) 2019-03-15 15:06:37 Dori Fowler [facility] IMMUNIZATION [facility] ASSIGNMENT OF BENEFITS 2019-03-15 13:58:12 Doctor Unassigned, No [facility] Name [facility] POCT URINALYSIS W/O 2019-03-15 00:00:00 Dori Fowler [facility] Encounters Start End Encounter Admission Attending Care Care Encounter Source Date/Time Date/Time Type Type Clinicians Facility Department ID 2021-07-24 2021-07-24 Emergency X YVES ANDRADE ERT [id number] Univers 16:26:00 18:27:00 ROCAEL milagros [facility] 2021-07-24 2021-07-24 Emergency [place], [facility] 1.2.840.114 [id number] [facility] 16:26:00 18:27:00 Xochiltkathryn Nu [place] [id number] ity of [place] 4.2.7.2.686 [place] [phone] [address] 2019-10-18 2019-10-18 Outpatient R FOWLER, [facility] [id number] Univers 09:00:00 09:00:00 DORI [id number] ity [facility] 2019-10-18 2019-10-18 Outpatient R FOWLER, [facility] [id number] Univers 09:00:00 09:00:00 DORI ity [facility] 2019-10-04 2019-10-04 Outpatient R FOWLER, [facility] [id number] Univers 09:00:00 09:00:00 DORI ity [facility] 2019-04-25 2019-04-25 Routine Fowler, [facility] 1.2.840.114 [id number] 10:12:39 11:15:39 Dori [place] [id number] Visit [place] 4.2.7.2.686 Professio [phone] [address] 2019-04-25 2019-04-25 Routine Fowler, [facility] 1.2.840.114 [id number] [facility] 10:12:39 11:15:39 Dori [place] 350.1.13.10 ity of Visit [place] 4.2.7.2.686 [facility] Professio [phone] [address] 2019-04-05 2019-04-05 Hematology Nurse Ultrasound, [facility] [place] 1.2 .840.114 [id number] [facility] 10:59:06 11:59:06 Visit Dori [place] [id number] ity of Elena Barnard [place] 4.2.7.2.686 [place] Professio [phone] [address] 2019-04-05 2019-04-05 Hematology Nurse Ultrasound, [facility] 1.2.840.114 [id number] 10:59:06 11:59:06 Visit [facility] [place] [id number] [place] 4.2.7.2.686 Professio [id number] [address] 2019-04-05 2019-04-05 Routine Fowler, [facility] 1.2.840.114 [id number] [facility] 08:44:38 09:20:31 Dori [place] 350.1.13.10 ity of [place]2.[place] [phone] [address] 2019-04-05 2019-04-05 Routine Fowler, [facility] 1.2.840.114 [id number] 08:44:38 09:20:31 Dori [place] 350.1.13.10 Visit [place] 4.2.7.2.686 Professio [phone] [address] 2019-03-15 2019-03-15 Hematology Nurse 1, [facility] 1.2.840.114 [id number] [facility] 10:32:03 10:47:03 Visit Fowler, Dori [place] 350.1.13.10 ity of [place]2.7.2.686 [place] [phone] [address] 2019-03-15 2019-03-15 Hematology Nurse 1, [facility] 1.2.840.114 [id number] 10:32:03 10:47:03 Visit [place] 350.1.13.10 [place] 4.2.7.2.686 [place] [phone] [facility] 2019-03-15 2019-03-15 Initial Fowler, [facility] 1.2.840.114 [id number] [facility] 08:59:50 10:08:54 Dori [place] 350.1.13.10 ity of Visit [place]2.7.2.[place] [phone] Id dic[address] 2019-03-15 2019-03-15 Initial Fowler, [facility] 1.2.840.114 [id number] 08:59:50 10:08:54 Dori [place] 350.1.13.10 Visit [place] 4.2.7.2.686 Professio [phone] [address] 2019-03-15 2019-03-15 Orders Doctor ERWIN 1.2.840.114 [id number] Univers 00:00:00 00:00:00 Only Unassigned, [place] 350.1.13.10 ity of [place] [facility] 4.2.7.2.686 [place] [phone] [address] 2019-03-15 2019-03-15 Telephone [facility] 1.2.840.114 [id number] Univers 00:00:00 00:00:00 Dorimilagros [place] 350.1.13.10 i ty of [place]2.7.2.[place] [phone] Id dical [address] 2019-03-15 2019-03-15 Orders Doctor ERWIN 1.2.840.114 [id number] 00:00:00 00:00:00 Only Unassigned, [place] 350.1.13.10 [place] [facility] 4.2.7.2.[phone] [facility] 2019-03-15 2019-03-15 Telephone [facility] 1.2.840.114 [id number] 00:00:00 00:00:00 Dori [place] 350.1.13.10 [place] 4.2.7.2.686 Professio [phone] [address] Results Test Description Test Time Test Comments Results Result Comments Source POCT TEST 2021-07-24 23:19:00 Test Item Value Reference Range Interpretation Comme nts POCT PREG (test code = 1605) negative On board controls acceptable with C Line (test code = 3574) present POCT PREG LOT # (test code = 3575) [id number] POCT PREG TEST DATE (test code = 3576) Lab Interpretation (test code = 37819-0) Normal [facility] SPECIFIC [id number] 13:57:00 Test Item Value Reference Range Interpretation Comments POCT PH U (test code = 3254) N/A 5-8 POCT U LEUK EST (test code = N/A Negative - Negative 3263) POCT U NIT (test code = 3262) N/A Negative - Negative POCT U PROT (test code = 3259) Negative Negative - Negative POCT U GLU (test code = 3256) Negative Negative - Negative POCT U KETONE (test code = 3258) N/A Negative - Negative POCT U BLD (test code = 3257) N/A Negative - Negative [facility]GC & CHLAMYDIA AMPLIFIED [id number] 18:15:00 Test Item Value Reference Range Interpretation Comments Lab Interpretation (test code = Normal 55334-8) [facility] [id number] 03:35:00 Test Item Value Reference Range Interpretation Comments SICKLE SCR (test code = 0024405258) Negative Negative Lab Interpretation (test code = Normal 21121-4) [facility] - DRUG SCREEN [id number] 17:19:00 Test Item Value Reference Range Interpretation Comments BENZO U (test code = Negative Negative 0313225719) PATSY U (test code = Negative Negative 0916343934) AMPHET (test code = Negative Negative 2762606059) THC (test code = Presumptive Negative A Confirmatio n of 4617666956) Positive Presumptive Positive THC result requires physician order . METHADONE (test code Negative Negative = 2134612116) Meth U (test code = Negative Negative 5855913268) OPIATES (test code = Negative Negative 5742714187) Cocaine Metabolite Negative Negative (test code = 1011973479) PROPOXY (test code = Negative Negative 4854458662) Tric U (test code = Negative Negative 6704692370) PCP (test code = Negative Negative 9539105085) OXYCOD (test code = Negative Negative 4526329265) YESI (test code = Urine Drug Cutoff EYSI) RangesBenzodiazep marc: ? ? 150 ng/mLBarbiturates : ?200 ng/mLAmphetamine: ? 500 ng/mLCannabinoids : ?50?ng/mLMethadon e: ? 200 ng/mLMethamphetam ine:? 500 ng/mL Opiates: ? 100 ng/mL or 2000 ng/mLCocaine: ? 150 ng/mLPropoxyphene :?300 ng/mLTricyclics:? 300 ng/mLOxycodone:? 100 ng/mLPCP:? 25?ng/mLThe results are to be used only for medical (i.e., treatment) purposes. Unconfirmed screening results must not be used for non-medical purposes (e.g., employment testing, legal testing). Lab Interpretation Abnormal (test code = 29066-6) [facility] W/O SPECIFIC [id number] 15:00:00 Test Item Value Reference Range Interpretation Comments POCT PH U (test code = 3254) n/a 5-8 POCT U LEUK EST (test code = 3263) n/a Negative - Negative POCT U NIT (test code = 3262) n/a Negative - Negative POCT U PROT (test code = 3259) neg Negative - Negative POCT U GLU (test code = 3256) neg Negative - Negative POCT U KETONE (test code = 3258) n/a Negative - Negative POCT U BLD (test code = 3257) n/a Negative - Negative Lab Interpretation (test code = Normal 58498-1) [facility]
[2022-05-07] MEDS ORDERED: NA CHLORIDE 0.9% 1,000 ML ONE (13:43)
[2022-05-07 14:15] LABS: Urine Blood Negative (Negative); Urine Glucose Trace (Negative); Urine Protein 1+ (Negative); Urine Specific Gravity >=1.030 (1.005-1.030)
[2022-05-07 14:20] LABS: Absolute Lymphocytes (CBC) 0.6 K/uL (0.7-4.9); Hematocrit 28.3 % (36.0-45.0); Lymphocytes % 5.1 % (15.3-44.8); MCV 87.1 fL (80-100); MPV 7.6 fL (7.6-11.3); RBC Red Blood Cell Count 3.25 M/uL (3.86-4.86)
[2022-05-07 14:38] LABS: Albumin 2.8 g/dL (3.4-5.0); Bilirubin Total 1.4 mg/dL (0.2-1.0); Potassium 3.5 mmol/L (3.5-5.1); Protein, Total 7.5 g/dL (6.4-8.2)
[2022-05-07 15:27] LABS: Calcium Oxalate Crystals- Ur Few /HPF (None Seen); Urine Mucus 3+ /HPF (None Seen); Urine RBC <5 /HPF (None Seen)
--- NOTE | 2022-05-07 16:34 | EDPHYS ---
Physician Documentation [facility] Name: Minh Gallardo Age: 26 yrs Sex: Female : 1995 Arrival Date: 05/07/2022 Time: 13:27 Bed DIS4 Private MD: ED Physician Kyung Palm HPI: 05/07 13:38 This 26 yrs old Black Female presents to ER via EMS with complaints of Nausea/Vomiting, snw Sore Throat. 13:38 fatigue, malaise, fever, sore throat, vomiting. Onset: The symptoms/episode snw began/occurred suddenly, 2 day(s) ago, and became persistent. Severity of symptoms: At their worst the symptoms were moderate severe. It is unknown whether or not the patient has had similar symptoms in the past. The patient has not recently seen a physician, moved from [place] 2 weeks ago. 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 - Social history:: Smoking status: unknown. ROS: 13:35 Eyes: Negative for injury, pain, redness, and discharge, ENT: Negative for injury, snw pain, and discharge, Neck: Negative for injury, pain, and swelling, Cardiovascular: Negative for chest pain, palpitations, and edema, Respiratory: Negative for shortness of breath, cough, wheezing, and pleuritic chest pain. 13:35 Back: Negative for injury and pain, : Negative for injury, bleeding, discharge, and swelling. 13:35 Skin: Negative for injury, rash, and discoloration, Neuro: Negative for headache, weakness, numbness, tingling, and seizure, Psych: Negative for depression, anxiety, suicide ideation, homicidal ideation, and hallucinations. 13:35 Constitutional: Positive for body aches, fatigue, fever, malaise, poor PO intake. 13:35 Abdomen/GI: Positive for nausea and vomiting. 13:35 MS/extremity: Positive for tenderness. Exam: 13:34 Head/Face: Normocephalic, atraumatic. Eyes: Pupils equal round and reactive to light, snw extra-ocular motions intact. Lids and lashes normal. Conjunctiva and sclera are non-icteric and not injected. Cornea within normal limits. Periorbital areas with no swelling, redness, or edema. ENT: Nares patent. No nasal discharge, no septal abnormalities noted. Tympanic membranes are normal and external auditory canals are clear. Oropharynx with no redness, swelling, or masses, exudates, or evidence of obstruction, uvula midline. Mucous membranes moist. Neck: Trachea midline, no thyromegaly or masses palpated, and no cervical lymphadenopathy. Supple, full range of motion without nuchal rigidity, or vertebral point tenderness. No Meningismus. Chest/axilla: Normal chest wall appearance and motion. Nontender with no deformity. No lesions are appreciated. 13:34 Respiratory: Lungs have equal breath sounds bilaterally, clear to auscultation and percussion. No rales, rhonchi or wheezes noted. No increased work of breathing, no retractions or nasal flaring. Back: No spinal tenderness. No costovertebral tenderness. Full range of motion. Skin: Warm, dry with normal turgor. Normal color with no rashes, no lesions, and no evidence of cellulitis. MS/ Extremity: Pulses equal, no cyanosis. Neurovascular intact. Full, normal range of motion. Neuro: Awake and alert, GCS 15, oriented to person, place, time, and situation. Cranial nerves II-XII grossly intact. Motor strength 5/5 in all extremities. Sensory grossly intact. Cerebellar exam normal. Normal gait. Psych: Awake, alert, with orientation to person, place and time. Behavior, mood, and affect are within normal limits. 13:34 Constitutional: The patient appears awake, anxious, uncomfortable. 13:34 Cardiovascular: Rate: tachycardic, Rhythm: regular, Heart sounds: normal. Vital Signs: 13:32 BP 119 / 83; Pulse 102; Resp 16; Temp 99.9; Pulse Ox 100% on R/A; Weight 90.72 kg; em6 Height 5 ft. (152.40 cm); Pain 0/10; 14:30 BP 121 / 69; Pulse 91; Resp 16; Pulse Ox 100% on R/A; em6 16:33 BP 111 / 65; Pulse 91; Resp 18; Temp 100.1; Pulse Ox 100% ; em6 13:32 Body Mass Index 39.06 (90.72 kg, 152.40 cm) em6 MDM: 13:36 Data reviewed: vital signs, nurses notes. Data interpreted: Pulse oximetry: on room air snw is 100 %. Interpretation: normal. ED course: Pt is a G5, P4 female with hx of preeclampsia. Pt delivered her third child with a "large tumor", this child went on to have stage IV ca, rec'd chemo and survived.. 13:39 Patient medically screened. snw 16:32 Response to treatment: the patient's symptoms have mildly improved after treatment. snw 05/07 13:31 Order name: CBC with Diff w 05/07 13:31 Order name: CMP w 05/07 13:31 Order name: Lipase [facility] 05/07 13:31 Order name: Urine Microscopic Only [facility] 05/07 13:31 Order name: Urine Culture [facility] 05/07 13:31 Order name: Blood Culture Adult (2) [facility] 05/07 13:31 Order name: Strep [facility] 05/07 13:31 Order name: Flu [facility] 05/07 13:31 Order name: SARS-COV-2 RT PCR (Document "Date of Onset" if Symptomatic) [facility] 05/07 14:15 Order name: Urine Dipstick-Ancillary; Complete Time: 14:41 EDMS 05/07 14:17 Order name: Urine --Ancillary (enter results) 05/07 14:21 Order name: CBC with Automated Diff; Complete Time: 14:41 EDMS 05/07 14:38 Order name: Comprehensive Metabolic Panel; Complete Time: 14:41 EDMS 05/07 14:38 Order name: Lipase; Complete Time: 14:41 EDMS 05/07 13:31 Order name: IV Saline Lock; Complete Time: 14:23 snw 05/07 13:31 Order name: Labs collected and sent; Complete Time: 14:12 snw 05/07 13:31 Order name: Urine Test (obtain specimen); Complete Time: 14:23 w 05/07 14:45 Order name: Influenza Screen (A ; Complete Time: 14:46 EDMS 05/07 14:45 Order name: Group A Streptococcus Rapid Sc; Complete Time: 14:46 EDMS 05/07 14:50 Order name: Urine --Ancillary; Complete Time: 14:59 EDMS 05/07 15:05 Order name: SARS-COV-2 RT PCR; Complete Time: 15:06 EDMS 05/07 15:27 Order name: Urine Microscopic Only; Complete Time: 15:51 EDMS Administered Medications: 14:10 Drug: NS 0.9% 1000 ml Route: IV; Rate: 1 bolus; Site: right antecubital; em6 15:30 Follow up: Response: No adverse reaction; IV Status: Completed infusion; IV Intake: em6 1000ml 16:56 Drug: Rocephin (cefTRIAXone) 1 grams {Note: given in 100ML NS to run to gravity..} jd3 Route: IV; Rate: calculated rate; Site: right antecubital; 17:24 Follow up: Response: No adverse reaction; IV Status: Completed infusion jd3 17:24 Follow up: Response: No adverse reaction; IV Status: Completed infusion; IV Intake: jd3 100ml 17:56 Follow up: Response: No adverse reaction; IV Status: Completed infusion; IV Intake: jd3 100ml 17:24 Drug: Tylenol 1000 mg Route: PO; jd3 17:24 Follow up: Response: Medication administered at discharge. jd3 Disposition Summary: 05/07/22 16:33 Discharge Ordered Location: Home snw Condition: Stable snw Diagnosis - Volume depletion, unspecified snw - Acute pharyngitis, unspecified snw - state, incidental snw Followup: snw - With: Emergency Department - When: As needed - Reason: Worsening of condition Followup: snw - With: Private Physician - When: 1 - 2 days - Reason: Recheck today's complaints, Continuance of care, Re-evaluation by your physician Discharge Instructions: - Discharge Summary Sheet snw - Dehydration, Adult snw - Pharyngitis snw - Care snw - Rehydration, Adult snw Forms: - Medication Reconciliation Form snw - Thank You Letter snw - Antibiotic Education snw - Prescription Opioid Use snw Prescriptions: - Augmentin 500-125 mg Oral Tablet - take 1 tablet by ORAL route every 8 hours for 10 days; 30 tablet; Refills: 0, snw Product Selection Permitted - promethazine 25 mg Oral Tablet - take 1 tablet by ORAL route every 6 hours As needed; 20 tablet; Refills: 0, snw Product Selection Permitted Signatures: Dispatcher [employer] EDMS Debra Clements, SUPERVISOR RIDES-C SUPERVISOR RIDES-Csnw Sujit Dutton, RN RN jd3 Omaira Brown RN RN em6 Corrections: (The following items were deleted from the chart) 16:45 13:35 PMHx: Depression; snw em6
--- NOTE | 2022-05-07 16:34 | ER ---
Nurse's Notes [facility] Name: Minh Gallardo Age: 26 yrs Sex: Female : 1995 Arrival Date: 05/07/2022 Time: 13:27 Bed DIS4 Private MD: Diagnosis: Volume depletion, unspecified;Acute pharyngitis, unspecified; state, incidental Presentation: 05/07 13:32 Chief complaint: EMS states: "patient has been feeling sick for the past week. states em6 having chills, sore throat, nausea, vomiting and fever. temperature of 100.4. has appendectomy and ovarian cyst removal. no known medication allergy.". Coronavirus screen: Client presents with at least one sign or symptom that may indicate coronavirus-19. Standard/surgical mask placed on the client. Ebola Screen: Patient negative for fever greater than or equal to 101.5 degrees Fahrenheit, and additional compatible Ebola Virus Disease symptoms. Initial Sepsis Screen: Does the patient meet any 2 criteria? No. Patient's initial sepsis screen is negative. Does the patient have a suspected source of infection? No. Patient's initial sepsis screen is negative. Risk Assessment: Do you want to hurt yourself or someone else? Patient reports no desire to harm self or others. Onset of symptoms was April 30, 2022. 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 - Social history:: Smoking status: unknown. Screenin:36 Abuse screen: Denies threats or abuse. Nutritional screening: No deficits noted. em6 Tuberculosis screening: No symptoms or risk factors identified. 13:36 Fall Risk IV access (20 points). em6 Assessment: 13:36 General: Appears uncomfortable, Behavior is cooperative. Pain: Complains of pain in em6 right lower quadrant and left lower quadrant Pain does not radiate. Pain currently is 8 out of 10 on a pain scale. Quality of pain is described as crampy, pressure, Is continuous. Neuro: Level of Consciousness is awake, alert, obeys commands, Oriented to person, place, time, situation. Cardiovascular: Heart tones present Patient's skin is warm and dry. Respiratory: Airway is patent Respiratory effort is even, unlabored, Respiratory pattern is regular, symmetrical, Breath sounds are clear bilaterally. GI: Abdomen is non-distended, Abd is soft and non tender X 4 quads. Reports lower abdominal pain. : No signs and/or symptoms were reported regarding the genitourinary system. EENT: Reports nasal congestion sore throat. Derm: No signs and/or symptoms reported regarding the dermatologic system. Musculoskeletal: Circulation, motion, and sensation intact. Range of motion: intact in all extremities. 14:40 Reassessment: No changes from previously documented assessment. Patient and/or family em6 updated on plan of care and expected duration. Pain level reassessed. Patient is alert, oriented x 3, equal unlabored respirations, skin warm/dry/pink. 15:40 Reassessment: No changes from previously documented assessment. Patient and/or family em6 updated on plan of care and expected duration. Pain level reassessed. Patient is alert, oriented x 3, equal unlabored respirations, skin warm/dry/pink. 16:40 Reassessment: No changes from previously documented assessment. Patient and/or family em6 updated on plan of care and expected duration. Pain level reassessed. Patient is alert, oriented x 3, equal unlabored respirations, skin warm/dry/pink. 16:40 Reassessment: Pt up for discharge after administration of IV medication. Attempted to jl7 move pt to treatment chair to have ER room 16 for an unstable pt. Pt appears agitated, refuses to move to a chair and states "Why? I don't even know why I am being discharged." Attempted to inform pt that MIRLANDE Richardson is with a different unstable pt and that she will come talk with her in the chair while her medications are done infusing. Pt continues to refuse to move to a chair, MIRLANDE Richardson informed and will be to bedside to talk with pt as soon as available. Security informed. 16:46 Reassessment: waiting for medication to finish to discharge . em6 16:56 Reassessment: pt assisted to recliner by Tyree NOGUEIRA to await finishing IV antibiotic jd3 infusion. while sitting in recliner pt had her phone open and recording saying "it is because I am black. I am sick just like everyone else here, but they kick me out of my room. in May 07, 2022 this is still happening in [place], [place] to black people. I am and sick I they made me give up my room. I should have gone to [facility] like my family told me too. I was just wanting to talk to my doctor and that bitch that came in before called security on me. I don't even know why he is here because there was no reason for security." security remained at the pt's side talking to pt. pt appears to have become more calm at this time. 17:24 Reassessment: Patient and/or family updated on plan of care and expected duration. Pain jd3 level reassessed. Patient is alert, oriented x 3, equal unlabored respirations, skin warm/dry/pink. I spoke with the pt involving moving rooms and the feeling of being mistreated. pt spoke softly explaining her viewpoint on the situation and remained calm and non confrontational at this time. I issued an apology as I reported there appears there was miscommunication. pt was then instructed on discharge information. denied any questions at this time. pt reported understanding of what her prescriptions were for and how to get the medications filled. Vital Signs: 13:32 BP 119 / 83; Pulse 102; Resp 16; Temp 99.9; Pulse Ox 100% on R/A; Weight 90.72 kg; em6 Height 5 ft. (152.40 cm); Pain 0/10; 14:30 BP 121 / 69; Pulse 91; Resp 16; Pulse Ox 100% on R/A; em6 16:33 BP 111 / 65; Pulse 91; Resp 18; Temp 100.1; Pulse Ox 100% ; em6 13:32 Body Mass Index 39.06 (90.72 kg, 152.40 cm) em6 ED Course: 13:27 Patient arrived in ED. eb 13:27 Debra Clements [facility]NP-C [facility]. snw 13:28 Kyung Palm MD is Attending Physician. snw 13:30 Bed in low position. Call light in reach. Side rails up X 1. em6 13:31 Omaira Brown, RN is Primary Nurse. em6 13:31 Omaira Brown RN is Primary Nurse. em6 13:36 Triage completed. em6 13:36 Arm band placed on. em6 13:55 Inserted saline lock: 20 gauge in right antecubital area, using aseptic technique. zm Blood collected. 14:12 Flu Sent. em6 14:12 Strep Sent. em6 14:12 Blood Culture Adult (2) Sent. em6 14:23 Urine --Ancillary (enter results) Sent. zm 14:23 CBC with Diff Sent. zm 14:23 CMP Sent. zm 14:23 Lipase Sent. zm 14:23 Urine Microscopic Only Sent. zm 14:23 Urine Culture Sent. zm 14:24 SARS-COV-2 RT PCR (Document "Date of Onset" if Symptomatic) Sent. zm 17:33 No provider procedures requiring assistance completed. IV discontinued, intact, jd3 bleeding controlled, No redness/swelling at site. Pressure dressing applied. Administered Medications: 14:10 Drug: NS 0.9% 1000 ml Route: IV; Rate: 1 bolus; Site: right antecubital; em6 15:30 Follow up: Response: No adverse reaction; IV Status: Completed infusion; IV Intake: em6 1000ml 16:56 Drug: Rocephin (cefTRIAXone) 1 grams {Note: given in 100ML NS to run to gravity..} jd3 Route: IV; Rate: calculated rate; Site: right antecubital; 17:24 Follow up: Response: No adverse reaction; IV Status: Completed infusion jd3 17:24 Follow up: Response: No adverse reaction; IV Status: Completed infusion; IV Intake: jd3 100ml 17:56 Follow up: Response: No adverse reaction; IV Status: Completed infusion; IV Intake: jd3 100ml 17:24 Drug: Tylenol 1000 mg Route: PO; jd3 17:24 Follow up: Response: Medication administered at discharge. jd3 Medication: 16:45 VIS not applicable for this client. em6 Intake: 15:30 IV: 1000ml; Total: 1000ml. em6 17:24 IV: 100ml; Total: 1100ml. jd3 Outcome: 16:33 Discharge ordered by . snw 17:33 Discharged to home ambulatory. jd3 17:33 Condition: stable 17:33 Discharge instructions given to patient, Instructed on discharge instructions, follow up and referral plans. medication usage, Demonstrated understanding of instructions, follow-up care, medications, Prescriptions given X 2. 17:33 Patient left the ED. jd3 Signatures: Debra Clements FNP-C SHOWROOM MANAGER-Tigist Hernandez RN RN jl7 Sujit Dutton RN RN jd3 Maria A Moss, Omaira Davey, RN RN em6 Corrections: (The following items were deleted from the chart) 16:45 13:35 PMHx: Depression; snw em6 17:57 17:24 Response: No adverse reaction; IV Status: Completed infusion jd3 jd3 17:58 17:56 Response: No adverse reaction; IV Status: Completed infusion; IV Intake: 100ml [id number] 18:02 17:24 Reassessment: Patient and/or family updated on plan of care and expected jd3 duration. Pain level reassessed. Patient is alert, oriented x 3, equal unlabored respirations, skin warm/dry/pink. I spoke with the pt involving moving rooms and the feeling of being mistreated. pt was spoke softly explaining her viewpoint on the situation and remained calm and non conformational at this time. I issued an apology as it appears there was miscommunication. pt was then instructed on discharge information. denied any questions at this time. pt reported understanding of what her prescriptions were for and how to get the medications filled. jd3
[2022-05-07] MEDS ORDERED: CEFTRIAXONE 1000 MG/VIAL ONE (16:41)
[2022-05-07] MEDS ORDERED: NA CHLORIDE 0.9% 100 ML IV ONE (16:41)
[2022-05-07] MEDS ORDERED: ACETAMINOPHEN 500 MG TAB ONE (17:17)
[2022-05-07 17:50] VITALS: O2SAT 100
[2022-05-07 18:01] VITALS: BP 111/65; TEMP 100.1
== END 2022-05-07 17:33 | disposition home or self-care (01) ==
LOC: ER 13:24
DX: E86.9 Volume depletion, unspecified (principal); J02.9 Acute pharyngitis, unspecified; Z33.1 Pregnant state, incidental; Z20.822 Contact with and (suspected) exposure to COVID-19
CPT/HCPCS: 36415; 80053; 81003; 81015; 81025; 83690; 85025; 87040; 87070; 87081; 87086; 87088; 87804; 96361; 96365; 99284; J7030; U0003

== ENCOUNTER 2022-10-09 22:24 | Emergency (ER) | payer OTHER ==
--- NOTE | 2022-10-09 22:39 | ER ---
Nurse's Notes [facility] Name: Minh Gallardo Age: 27 yrs Sex: Female : 1995 Arrival Date: 10/09/2022 Time: 22:27 Bed IW4 Private MD: Diagnosis: Presentation: 10/09 22:31 Chief complaint: Patient states: "I have a really bad headache and im worried by blood as6 pressure is high". Coronavirus screen: At this time, the client does not indicate any symptoms associated with coronavirus-19. Ebola Screen: No symptoms or risks identified at this time. Initial Sepsis Screen: Does the patient meet any 2 criteria? No. Patient's initial sepsis screen is negative. Does the patient have a suspected source of infection? No. Patient's initial sepsis screen is negative. Risk Assessment: Do you want to hurt yourself or someone else? Patient reports no desire to harm self or others. Onset of symptoms was October 07, 2022. 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 - Social history:: Smoking status: Patient denies any tobacco usage or history of. Assessment: 22:36 Reassessment: Just wanted blood pressure checked, left because blood pressure was fine. vc1 Vital Signs: 22:31 Pulse 89; Resp 20 S; Temp 98.9(O); Pulse Ox 100% on R/A; Weight 95.25 kg (R); Height 5 as6 ft. 0 in. (152.40 cm) (R); Pain 9/10; 22:34 BP 134 / 84; as6 22:31 Body Mass Index 41.01 (95.25 kg, 152.40 cm) as6 ED Course: 22:27 Patient arrived in ED. jj6 22:31 Arm band placed on. as6 22:34 Triage completed. as6 Administered Medications: No medications were administered Outcome: 22:38 Patient left the ED. vc1 Signatures: Diane Henderson jj6 Rajeev Hartley, RN RN as6 Dianna Torrez, RN RN vc1
--- OUTSIDE RECORDS SUMMARY | 2022-10-09 22:47 | XMS REPORT | Continuity of Care Document ---
:1995 Author Organization [facility] t Address [address] [place] [address] Care Team Providers Name Role Phone RENO OLIVIER Primary Care Physician Unavailable TRACIE NASH Attending Clinician Unavailable DENVER HOUSE Attending Clinician Unavailable Tracie Nash MD Attending Clinician 2, [facility] Attending Clinician Unavailable Doctor Unassigned, [place] Attending Clinician Unavailable HEIDI FRANK Attending Clinician Unavailable TITA SHANKAR Attending Clinician Unavailable Kentrell Hill MD Attending Clinician Tita Shankar MD Attending Clinician ROCAEL CROUCH Attending Clinician Unavailable Rocael Marti Attending Clinician DORI FOWLER Attending Clinician Unavailable Dori Fowler MD Attending Clinician Ultrasound, [facility] Mfm Attending Clinician Unavailable Elena Barnard MD Attending Clinician 1, [facility] Attending Clinician Unavailable TITA SHANKAR Admitting Clinician Unavailable Tita Shankar MD Admitting Clinician Payers Payer Name Policy Type Policy Number Effective Date Expiration Date S ource MEDICAID PENDING PENDING 2022 00:00:00 FORMERLY [facility] [id number] 2022 CHOICE [place] ST[place] 00:00:00 [place] [id number] 2016 2022 WOMEN 00:00:00 00:00:00 Problems Condition Condition Condition Status Onset Resolution Last Treating Co mments Source Name Details Category Date Date Treatment Clinician Date Previous Previous Disease Active Overview: Un nando child with child with 2-03 Formattin ity of congenital congenital 00:00: g of this [place] anomaly, anomaly, 00 note Medica l currently currently might be Br anch , , different antepartum antepartum from the , single , single original. or or 2017- unspecifie unspecifie daughter d fetus d fetus born with sacrococc ygeal teratoma Supervisio Supervisio Disease Active U nivers n of n of 2-03 it[place] of high-risk high[place] [facility] with with Branch insufficie insufficie nt nt care in care in third third trimester trimester 30 weeks 30 weeks Disease Active Unive rs gestation gestation 2-03 ity of of of 00:00: [place] 00 [facility] Branch Obesity Obesity Disease Active 2021-08 Univers (BMI (BMI 0-03 ity of 30-39.9) 30-39.9) 00:00: [place] 00 Medical Branch Fever of Fever of Disease Active 2021-08 Unive rs unknown unknown 0-02 ity of origin origin 00:00: [place] 00 Medical Branch Elevated Elevated Disease Active 2018-08 [place] [...] [place] period period 00 [place] Morbid Morbid Disease Active Univers obesity obesity [...] gestation 6-13 ity of of of 00:00: [place] 00 [facility] Cyst of Cyst of Disease Active Univers uterus uterus 6-13 [place]y of determined determined [place] by by 00 Medical ultrasound ultrasound Br anch Group B Group B Disease Active Univers streptococ streptococ 6-13 it y of [facility] 00:00: [place] carriage carriage 00 Medica l complicati complicati Br anch ng ng Reactive Reactive Disease Active Unive rs depression depression 6-04 it y of 00:00: [place] 00 [facility] High-risk High-risk Disease Active Uni vers 5-26 ity of in third in third 00:00: [place] trimester trimester 00 [facility] 1 1 Disease Active U nivers visit visit 5-26 ity of 06/08/16 06/08/16 00:00: [place] 00 [facility] Vaginitis Vaginitis Disease Active Uni vers affecting affecting 5-26 ity of , , [place] current, current, 00 Medica l antepartum antepartum Br anch , third , third trimester trimester Allergies, Adverse Reactions, Alerts Allergy Allergy Status Severity Reaction(s) Onset Inactive Treating Comm ents Source Name Type Date Date Clinician NO KNOWN Drug Active Univers ALLERGIE Class ity of S [facility] [place] Social History Social Habit Start Date Stop Date Quantity Comments Source ASSERTION 2022-02-23 University of 00:00:00 [facility] [place] Exposure to 2022-09-13 2022-09-23 Not sure [facility] SARS-CoV-2 00:00:00 10:24:00 [place] Medical (event) Branch Alcohol intake 2022-09-23 2022-09-23 Current University of 00:00:00 00:00:00 non-drinker of [facility] alcohol (finding) Branch Tobacco use and 2022-09-09 2022-09-09 Smokeless tobacco Un iversity of exposure 00:00:00 00:00:00 non-user [facility] [place] Tobacco Comment 2022-09-09 2022-09-09 quit smoking 1 Unive rsity of 00:00:00 00:00:00 week ago [facility] [place] History of 2016-05-06 Cigarette Smoker Universi ty of tobacco use 00:00:00 [facility] [place] Sex Ass[birth year] At [birth year] Universit y of 00:00:00 00:00:00 [facility] [place] Smoking Status Start Date Stop Date Source Ex-smoker 2022-09-09 00:00:00 2022-09-09 00:00:00 Universi ty of [facility] [place] Medications Ordered Filled Start Stop Current Ordering Indication Dosage Frequency Signature Comments Components Source Medication Medication Date Date Medication? Clinician (SIG) Name Name [facility] Yes Take by Univers no.95/nalini 2-03 mouth. ity of 08:23: [place] fum/folic 50 Medical ac Branch ( ORAL) V Yes Take by Univers no.95/nalini 2-03 mouth. ity of 08:23: [place] fum/folic 50 Medical ac Branch ( ORAL) V Yes Take by Univers no.95/nalini 2-03 mouth. ity of 08:23: [place] fum/folic 50 Medical ac Branch ( ORAL) V Yes Take by Univers no.95/nalini 2-03 mouth. ity of 08:23: [place] fum/folic 50 Medical ac Branch ( ORAL) ferrous 2022- Yes [id number] 325mg Take 1 Un nando sulfate 325 2-03 tablet by ity of mg (65 mg 00:00: [place] iron[place] 00 the Medical tablet morning Branch and 1 tablet in the evening. ferrous 2022-0 Yes [id number] 325mg Take 1 [place] sulfate 325 2-03 tablet by ity of mg (65 mg 00:00: [place] iron[place] 00 the Medical tablet morning Branch and 1 tablet in the evening. ferrous Yes [id number] 325mg Take 1 [place] sulfate 325 2-03 tablet by ity of mg (65 mg 00:00: [place] iron) 00 the Medical tablet morning Branch and 1 tablet in the evening. ferrous Yes [id number] 325mg Take 1 Un n[place] sulfate 325 2-03 tablet by ity of mg (65 mg 00:00: [place] iron[place] 00 the Medical tablet morning Branch and 1 tablet in the evening. amoxicillin 2021-08- No 1{tbl} 1 tablet, Univers -clavulanat 0-05 10-05 Oral, ity of e 15:00: 15:09 ONCE, 1 [place] (AUGMENTIN) 00 :00 dose, On Medi emilee 875-125 mg Wed Branch per tablet 05/11/22 at 1 tablet 1000, Routine
Reason for Anti-Infec tive: Empiric Therapy for Suspected Infection< br>Empiric Therapy Site: Other
O ther site: unknown
Duration of therapy: 72 hours ferrous 2021-08 Yes [id number] 325mg Take 1 Un nando sulfate 325 0-05 tablet by ity of mg (65 mg 00:00: [place] iron[place] 00 the Medical tablet morning Branch and 1 tablet in the evening. ferrous 2021-08 Yes [id number] 325mg Take 1 [place] n[place] sulfate 325 0-05 tablet by ity of mg (65 mg 00:00: [place] iron[place] 00 the Medical tablet morning Branch and 1 tablet in the evening. ferrous 2021-08 Yes [id number] 325mg Take 1 Un n[place] sulfate 325 0-05 tablet by ity of mg (65 mg 00:00: [place] iron[place] 00 the Medical tablet morning Branch and 1 tablet in the evening. ferrous 2021-08- No [id number] 325mg Take 1 U nivers sulfate 325 0-05 02-05 tablet by it y of mg (65 mg 00:00: 00:00 mouth in [place] iron) 00 :00 the Medical tablet morning Branch and 1 tablet in the evening. amoxicillin 2021-08- No [id number] 1{tbl} Take 1 Univers -clavulanat 0-05 10-13 tablet by it y of e 00:00: 04:59 mouth in [place] (AUGMENTIN) 00 :00 the Medical 875-125 mg morning Branch per tablet and 1 tablet in the evening. Do all this for 7 days. piperacilli 2021-08 No 3.375g 3.375 g, Univers n-tazobacta 0-03 10-05 IV ity of m (ZOSYN) 18:00: 14:02 [place]back, [place] 3.375 g in 00 :00 Q8H ABX, Medic al NaCl 0.9% 15 doses, Branc h (NS) 50 mL First dose MINI-BAG on 05/09/22 at 1300, Last dose on 05/14/22 at 0500, Administer over 4 Hours, 50 mL
Reas on for Anti-Infec tive: Empiric Therapy for Suspected Infection< br>Empiric Therapy Site: Abdominal< br>Duratio n of therapy: 5 days benzocaine- 2021-08 Yes 1{lozen 1 Lozenge, Univers menthoL 0-03 ge} Oral, ity of (CEPACOL 17:25: Q4HPRN, [place] SORE THROAT 19 Starting Medi emilee (LB-MEN)) on [facility] Branch lozenge 1 05/09/22 at Lozenge 1225, Until Discontinu ed, Routine, Sore throat 2021-08 Yes 1{tbl} 1 tablet, Un nando vitamin 0-03 Oral, ity of w/FA tablet 14:00: DAILY, [place] 1 tablet 00 First dose Medic al on [facility] Branch 05/09/22 at 0900, Until Discontinu ed, Routine piperacilli 2021-08 No 3.375g 3.375 g, Univers n-tazobacta 0-03 10-03 IV ity of m (ZOSYN) 11:00: 10:58 [place], [place] 3.375 g in 00 :00 ONCE, 1 Medica l NaCl 0.9% dose, On Branch (NS) 50 mL Mon MINI-BAG 05/09/22 at 0600, Administer over 30 Minutes, 50 mL
R anny for Anti-Infec tive: Empiric Therapy for Suspected Infection< br>Empiric Therapy Site: Abdominal< br>Duratio n of therapy: 5 days acetaminoph 2021-08 Yes 650mg 650 mg, Un nando en 0-03 Oral, ity of (TYLENOL) 10:11: Q4HPRN, [place] tablet 650 27 Starting Medic al mg on Mon05/09/22 at 0511, Until Discontinu ed, Routine, Pain (scale 1-3), Temp > 38.5 C acetaminoph 2021-08 No 650mg 650 mg, U nivers en 0-03 10-03 Oral, ity of (TYLENOL) 07:30: 07:17 ONCE, 1 [place] tablet 650 00 :00 dose, On Medic al mg Mon05/09/22 at 0230, Routine acetaminoph 2021-08 No 650mg 650 mg, U nivers en 0-03 10-03 Oral, Q6H ity of (TYLENOL) 02:45: 10:11 ABX, First [place] tablet 650 00 :39 dose on Medica l mg [facility] 05/08/22 at 2145, Until Discontinu ed, Routine NaCl 0.9% 2021-08 Yes 1000mL at 150 Univ ers (NS) IV 0-03 mL/hr, IV ity of infusion 02:30: Infusion, [place] 1,000 mL 00 CONTINUOUS Medic al , Starting Branch on Mon05/08/22 at 2130, Until Discontinu ed, Routine maalox:diph 2021-08 Yes 15mL 15 mL, Univ ers enhydrAMINE 0-03 Oral, ity of :lidocaine 02:15: QDAILYPRN, [place] 2 % viscous 59 Starting Medi emilee 1:1:1 on [place] Branch (FIRST-MOUT 05/08/22 at [facility]) 2115, oral Until suspension Discontinu 15 mL ed, Routine, Oral mucositis metoclopram 2021-08 Yes 10mg 10 mg, Univ ers peggy HCl 0-03 Slow IV ity of (REGLAN) 01:19: Push, [place] injection 25 Q6HPRN, Medical 10 mg Starting Branch on Mon05/08/22 at 2019, Until Discontinu ed, STEFANIE, Nausea and Vomiting (N/V) acetaminoph 2021-08 No 650mg 650 mg, U nivers en 0-02 10-02 Oral, ity of (TYLENOL) 22:00: 21:48 ONCE, 1 [place] tablet 650 00 :00 dose, On Medic al mg [place] Branch 05/08/22 at 1700, STEFANIE NaCl 0.9% 2021-08 1000mL at 999 Uni vers (NS) bolus 0-02 10-02 mL/hr, ity of infusion 22:00: 23:00 1,000 mL, [place] 1,000 mL 00 :00 IV Medical Infusion, Branch ONCE, 1 dose, On 05/08/22 at 1700, STEFANIE metoclopram 2021-08 No 10mg 10 mg, Uni vers peggy HCl 0-02 10-03 Slow IV ity of (REGLAN) 21:19: 01:21 Push, [place] injection 03 :52 Q6HPRN, 2 Medic al 10 mg doses, Branch Starting on [place] 05/08/22 at 1619, Until [place] 05/08/22 at 2020, STEFANIE, Nausea and Vomiting (N/V) ketorolac 2020-08 No 30mg 30 mg, Unive rs (TORADOL) 09-2518 Intramuscu ity of injection 00:15: 23:19 lar, ONCE, [place] 30 mg 00 :00 1 dose, On Medical Sat Branch 07/24/21 at 1815, STEFANIE HYDROcodone 2020-08 No 1{tbl} 1 tablet, Univers -acetaminop 09-2518 Oral, ity of hen (NORCO 00:15: 23:19 ONCE, 1 [place] 5) 5-325 mg 00 :00 dose, On Medi emilee tablet 1 Sat Branch tablet 07/24/21 at 1815, STEFANIE ibuprofen 2020-08 Yes [id number] 800mg Take 1 U nivers 800 mg 2-18 tablet by ity of tablet 00:00: mouth [place] 00 every 6 Medical (six) Branch hours as needed for Pain (scale 4-6). ibuprofen 2020-08 No [id number] 800mg Take 1 Univers 800 mg 2-18 10-05 tablet by ity of tablet 00:00: 00:00 mouth [place] 00 :00 every 6 Medical (six) Branch hours as needed for Pain (scale 4-6). amoxicillin 2020-08 No [id number] 1{tbl} Take 1 Univers -clavulanat 2-18 12-26 tablet by it y of e 875-125 00:00: 05:59 mouth [place] mg per 00 :00 every 12 Medical tablet (twelve) Branch hours for 7 days. ferrous Yes [id number] 325mg Take 1 Un nando sulfate 325 8-09 tablet by ity of mg (65 mg 00:00: mouth 2 [place] iron) EC 00 (two) Medical tablet times Branch daily. ferrous Yes [id number] 325mg Take 1 [place] sulfate 325 8-09 tablet by ity of mg (65 mg 00:00: mouth 2 [place] iron) EC 00 (two) Medical tablet times Branch daily. ferrous Yes [id number] 325mg Take 1 [place] n[place] sulfate 325 8-09 tablet by ity of mg (65 mg 00:00: mouth 2 [place] iron) EC 00 (two) Medical tablet times Branch daily. ferrous Yes [id number] 325mg Take 1 [place] n[place] sulfate 325 8-09 tablet by ity of mg (65 mg 00:00: mouth 2 [place] iron) EC 00 (two) Medical tablet times Branch daily. HYDROcodone Yes 1{tbl} Take 1 Un nando -acetaminop [...] (two) Medical tablet times Branch daily. ibuprofen Yes 600mg Take 1 Unive rs 600 [...] Medical needed for Branch Constipati on. ferrous 0 Yes 325mg Take 1 Univers sulfate 325 6-16 tablet by ity of mg (65 mg 00:00: mouth 2 [place] iron) 00 (two) Medical tablet times Branch daily. ibuprofen 20170 Yes 600mg Take 1 Unive rs 600 [...] (two) Medical tablet times Branch daily. ibuprofen 20170 Yes 600mg Take 1 Unive rs 600 [...] Take with food or milk. docusate 2017-0 2022- No 240mg Take 1 Unive rs calcium 240 01-20 capsule by i ty of mg capsule 00:00: 00:00 mouth once [place] 00 :00 daily as Medical needed for Branch Constipati on. ferrous No 325mg Take 1 Univer s sulfate 325 01-20 tablet by it y of mg (65 mg 00:00: 00:00 mouth 2 [place] iron) 00 :00 (two) Medical tablet times Branch daily. ibuprofen No 600mg Take 1 Univ ers 600 mg 01-20 tablet by ity of tablet 00:00: 00:00 mouth [place] 00 :00 every 6 Medical (six) Branch hours as needed for Pain (scale 1-3) or Pain (scale 4-6). Take with food or milk. phenazopyri 2015-0 Yes 200mg Take 1 Tab Univers dine 3-23 by mouth 3 ity of (PYRIDIUM) 00:00: (three) [place] 200 mg 00 times Medical tablet daily. Branch sulindac 0 Yes 200mg Take 1 Tab Un nando (CLINORIL) 3-23 by mouth 2 ity of 200 mg 00:00: (two) [place] tablet 00 times Medical daily. Branch phenazopyri 0 Yes 200mg Take 1 Tab Univers dine [...] Medical RX OR Branch GENERIC EQUIVALENT) tablet 2014-08- No 1{tbl} Take 1 Tab Univers vitamin 2-02 10-05 by mouth ity of w/FA 00:00: 00:00 daily. [place] ( 00 :00 Medical RX OR Branch GENERIC EQUIVALENT) tablet Immunizations Ordered Filled Immunization Date Status Comments [facility] e Immunization Name Name TDAP (ADACEL) 2019-03-18 Completed University of VACCINE 00:00:00 [place] [facility] TDAP (ADACEL) 2019-03-18 Completed University of VACCINE 00:00:00 [place] [facility] TDAP (ADACEL) 2019-03-18 Completed University of VACCINE 00:00:00 [place] [facility] TDAP (ADACEL) 2019-03-18 Completed University of VACCINE 00:00:00 [place] [facility] TDAP (ADACEL) 2019-03-18 Completed University of VACCINE 00:00:00 [place] [facility] TDAP (ADACEL) 2019-03-18 Completed University of VACCINE 00:00:00 [place] [facility] TDAP (ADACEL) 2019-03-18 Completed University of VACCINE 00:00:00 [place] [facility] TDAP (ADACEL) 2019-03-18 Completed University of VACCINE 00:00:00 [place] [facility] TDAP (ADACEL) 2019-03-18 Completed University of VACCINE 00:00:00 [place] [facility] TDAP (ADACEL) 2019-03-18 Completed University of VACCINE 00:00:00 [place] [facility] TDAP (ADACEL) 2019-03-18 Completed University of VACCINE 00:00:00 [place] [facility] TDAP (ADACEL) 2019-03-18 Completed University of VACCINE 00:00:00 [place] [facility] TDAP (ADACEL) 2019-03-15 Completed University of VACCINE 00:00:00 [place] [facility] TDAP (ADACEL) 2019-03-15 Completed University of VACCINE 00:00:00 [place] [facility] TDAP (ADACEL) 2019-03-15 Completed University of VACCINE 00:00:00 [place] [facility] TDAP (ADACEL) 2019-03-15 Completed University of VACCINE 00:00:00 [facility] Branch TDAP (ADACEL) 2019-03-15 Completed University of VACCINE 00:00:00 [facility] Branch TDAP (ADACEL) 2019-03-15 Completed University of VACCINE 00:00:00 [facility] Branch TDAP (ADACEL) 2019-03-15 Completed University of VACCINE 00:00:00 [facility] Branch TDAP (ADACEL) 2019-03-15 Completed University of VACCINE 00:00:00 [facility] Branch TDAP (ADACEL) 2019-03-15 Completed University of VACCINE 00:00:00 [facility] Branch TDAP (ADACEL) 2019-03-15 Completed University of VACCINE 00:00:00 [facility] TDAP (ADACEL) 2019-03-15 Completed University of VACCINE 00:00:00 [facility] Branch TDAP (ADACEL) 2019-03-15 Completed University of VACCINE 00:00:00 [facility] TDAP (ADACEL) 2019-03-15 Completed University of VACCINE 00:00:00 [facility] [place] Vital Signs Vital Name Observation Time Observation Value Comments Source Systolic blood 2022-09-23 16:44:00 117 mm[Hg] Univer sity of pressure [facility] [place] Diastolic blood 2022-09-23 16:44:00 69 mm[Hg] Unive rsity of pressure [facility] [place] Heart rate 2022-09-23 16:44:00 85 /min [facility] Body temperature 2022-09-23 16:44:[address] [facility] 2022-09-23 16:44:00 18 /min [facility] Body height 2022-09-23 16:44:00 152.4 cm [facility] Body weight 2022-09-23 16:44:00 101.334 kg Universi ty of [place] [facility] BMI 2022-09-23 16:44:00 43.63 kg/m2 Universi ty of [place] [facility] Systolic blood 2022-09-09 14:17:00 113 mm[Hg] Univer sity of pressure [place] [facility] Diastolic blood 2022-09-09 14:17:00 74 mm[Hg] Unive rsity of pressure [place] [facility] Heart rate 2022-09-09 14:17:00 89 /min Universi ty of [place] [facility] Body temperature 2022-09-09 14:17:00 36.89 Evelina Univ ersity of [facility] Branch Respiratory rate 2022-09-09 14:17:00 18 /min Univ ersity of [facility] [place] Body height 2022-09-09 14:17:00 152.4 cm Universi ty of [place] [facility] [place] Body weight 2022-09-09 14:17:00 98.975 kg Universi ty of [place] [facility] BMI 2022-09-09 14:17:00 42.61 kg/m2 Universi ty of [place] [facility] Systolic blood 2022-05-11 13:30:00 114 mm[Hg] Univer sity of pressure [place] [facility] Diastolic blood 2022-05-11 13:30:00 65 mm[Hg] Unive rsity of pressure [place] [facility] Heart rate 2022-05-11 13:30:00 76 /min Universi ty of [place] [facility] [place] Body temperature 2022-05-11 13:30:00 36.83 Evelina Univ ersity of [facility] [place] Respiratory rate 2022-05-11 13:30:00 18 /min Univ ersity of [facility] Branch Oxygen saturation in 2022-05-11 13:30:00 100 /min University Arterial blood by [facility] Pulse oximetry Branch Body height 2022-05-08 20:44:00 152.4 cm Universi ty of [place] [facility] Body weight 2022-05-08 20:44:00 86.183 kg Universi ty of [place] [facility] BMI 2022-05-08 20:44:00 37.11 kg/m2 Universi ty of [place] [facility] Systolic blood 2021-07-24 22:23:00 131 mm[Hg] Univer sity of pressure [place] [facility] Diastolic blood 2021-07-24 22:23:00 91 mm[Hg] Unive rsity of pressure [place] [facility] Heart rate 2021-07-24 22:23:00 75 /min Universi ty of [place] [facility] Body temperature 2021-07-24 22:23:00 37 Evelina Univ ersity of [place] [facility] Respiratory rate 2021-07-24 22:23:00 18 /min Univ ersity of [place] [facility] Body weight 2021-07-24 22:23:00 88.451 kg Universi ty of [place] [facility] BMI 2021-07-24 22:23:00 38.08 kg/m2 Universi ty of [place] [facility] Oxygen saturation in 2021-07-24 22:23:00 99 /min University of Arterial blood by [facility] Pulse oximetry Branch Systolic blood 2019-04-25 15:42:00 121 mm[Hg] Univer sity of pressure [place] [facility] Diastolic blood 2019-04-25 15:42:00 76 mm[Hg] Unive rsity of pressure [place] [facility] Heart rate 2019-04-25 15:42:00 91 /min Universi ty of [place] [facility] Body temperature 2019-04-25 15:42:00 36.78 Evelina Univ ersity of [place] [facility] Respiratory rate 2019-04-25 15:42:00 18 /min Univ ersity of [place] [facility] Body height 2019-04-25 15:42:00 152.4 cm Universi ty of [place] [facility] Body weight 2019-04-25 15:42:00 96.344 kg Universi ty of [place] [facility] BMI 2019-04-25 15:42:00 41.48 kg/m2 Universi ty of [place] [facility] Systolic blood 2019-04-25 15:42:00 121 mm[Hg] Univer sity of pressure [place] [facility] Diastolic blood 2019-04-25 15:42:00 76 mm[Hg] Unive rsity of pressure [place] [facility] Heart rate 2019-04-25 15:42:00 91 /min Universi ty of [place] [facility] Body temperature 2019-04-25 15:42:00 36.78 Evelina Univ ersity of [place] [facility] Respiratory rate 2019-04-25 15:42:00 18 /min Univ ersity of [place] [facility] Body height 2019-04-25 15:42:00 152.4 cm Universi ty of [place] [facility] Body weight 2019-04-25 15:42:00 96.344 kg Universi ty of [place] [facility] BMI 2019-04-25 15:42:00 41.48 kg/m2 Universi ty of [place] [facility] Systolic blood 2019-04-05 13:55:00 129 mm[Hg] Univer sity of pressure [place] [facility] Diastolic blood 2019-04-05 13:55:00 75 mm[Hg] Unive rsity of pressure [place] [facility] Heart rate 2019-04-05 13:55:00 104 /min Universi ty of [place] [facility] Body temperature 2019-04-05 13:55:00 36.89 Evelina Univ ersity of [place] [facility] Respiratory rate 2019-04-05 13:55:00 18 /min Univ ersity of [place] [facility] Body height 2019-04-05 13:55:00 152.4 cm Universi ty of [place] [facility] Body weight 2019-04-05 13:55:00 96.163 kg Universi ty of [place] [facility] BMI 2019-04-05 13:55:00 41.40 kg/m2 Universi ty of [place] [facility] Systolic blood 2019-04-05 13:55:00 129 mm[Hg] Univer sity of pressure [place] [facility] Diastolic blood 2019-04-05 13:55:00 75 mm[Hg] Unive rsity of pressure [place] [facility] Heart rate 2019-04-05 13:55:00 104 /min Universi ty of [place] [facility] Body temperature 2019-04-05 13:55:00 36.89 Evelina Univ ersity of [place] [facility] Respiratory rate 2019-04-05 13:55:00 18 /min Univ ersity of [place] [facility] Body height 2019-04-05 13:55:00 152.4 cm Universi ty of [place] [facility] Body weight 2019-04-05 13:55:00 96.163 kg Universi ty of [place] [facility] BMI 2019-04-05 13:55:00 41.40 kg/m2 Universi ty of [place] [facility] Systolic blood 2019-03-15 14:38:00 117 mm[Hg] Univer sity of pressure [place] [facility] Diastolic blood 2019-03-15 14:38:00 81 mm[Hg] Unive rsity of pressure [place] [facility] Heart rate 2019-03-15 14:38:00 90 /min Universi ty of [place] [facility] Body temperature 2019-03-15 14:38:00 36.72 Evelina Univ ersity of [place] [facility] Respiratory rate 2019-03-15 14:38:00 20 /min Univ ersity of [place] [facility] Body height 2019-03-15 14:38:00 152.4 cm Universi ty of [place] [facility] Body weight 2019-03-15 14:38:00 94.802 kg Universi ty of [place] [facility] BMI 2019-03-15 14:38:00 40.82 kg/m2 Universi ty of [facility] Systolic blood 2019-03-15 14:38:00 117 mm[facility]Hg] [facility] [place] [facility] Diastolic blood 2019-03-15 14:38:00 81 mm[facility]Hg] [facility] Heart rate 2019-03-15 14:38:00 90 /min Universi ty of [place] [facility] Body temperature 2019-03-15 14:38:[address] [facility] [place] Respiratory rate 2019-03-15 14:38:00 20 /min [facility] ersity of [place] [facility] Body height 2019-03-15 14:38:00 152.4 cm Universi ty of [place] [facility] Body weight 2019-03-15 14:38:00 94.802 kg [facility]i ty of [place] [facility] BMI 2019-03-15 14:38:00 40.82 kg/m2 Universi ty of [place] Medical Branch Procedures Procedure Date / Time Performing Clinician Source Performed POCT URINALYSIS W/O 2022-09-23 00:00:00 AdTracie [facility] [place] SPECIFIC GRAVITY Medical Branch POCT URINALYSIS W/O 2022-09-09 14:29:00 AdTracie [facility] [place] SPECIFIC GRAVITY Medical Branch ASSIGNMENT OF BENEFITS 2022-09-09 13:51:17 Doctor Unassigned, Un [facility] CBC WITH DIFF 2022-05-11 09:48:00 Roldan Wilhelm o f [facility] MR SOFT TISSUE NECK WO 2022-05-10 15:23:00 Roldan Wilhelm [facility] CONTRAST [facility] LACTATE DEHYDROGENASE 2022-05-10 10:00:00 Roldan Wilhelm sit of [facility] COMP. METABOLIC PANEL 2022-05-10 10:00:00 Roldan Wilhelm [facility] ([id number]) [facility] CBC WITH DIFF 2022-05-10 10:00:00 Roldan Wilhelm [facility] RETICULOCYTES AUTOMATED 2022-05-10 00:25:00 Roldan Wilhelm [facility] IRON 2022-05-09 14:48:00 Roldan Wilhelm [facility] THROAT CULTURE 2022-05-09 14:48:00 Mehdi [facility] RAPID STREP SCREEN FOR 2022-05-09 14:48:00 Mehdi [facility] A [facility] RAPID INFLUENZA A/B 2022-05-09 14:48:00 Mehdi [facility] HAV ANTIBODY (IGG AND 2022-05-09 14:48:00 Mehdi [facility] IGM) [facility] RAPID RSV 2022-05-09 14:48:00 Mehdi [facility] COMP. METABOLIC PANEL 2022-05-09 10:50:00 Raad [facility] ([id number]) [facility] CBC WITH DIFF 2022-05-09 10:50:00 Raad [facility] US GALL BLADDER 2022-05-09 03:22:43 Fish [facility] URINE CULTURE 2022-05-09 03:21:00 Raad [facility] GC & CHLAMYDIA AMPLIFIED 2022-05-09 03:21:00 Fish, Tita [facility] TRICHOMONAS AMPLIFIED 2022-05-09 03:21:00 Raad [facility] HAPTOGLOBIN, SERUM 2022-05-09 02:37:00 Roldan Wilhelm [facility] TOTAL IRON BINDING 2022-05-09 02:37:00 Roldan Wilhelm [facility] EBV-MONONUCLEOSIS SCREEN 2022-05-09 02:37:00 FishTita [facility] RUBELLA SCREEN IGG 2022-05-09 02:37:00 Raad Tita [facility] EBV VIRAL CAPSID IGM 2022-05-09 02:37:00 Fish, Tita [facility] ANTIBODY Medical Branch VZV ANTIBODY SCREEN 2022-05-09 02:37:00 Fish, Tita [facility] HEPATITIS B SURFACE 2022-05-09 02:37:00 Fish, [facility] ANTIGEN [facility] Branch HCV ANTIBODY 2022-05-09 02:37:00 Fish, Tita [place] [facility] HEPATITIS A VIRUS 2022-05-09 02:37:00 Nery Harding [facility] ANTIBODY IGM [facility] ADC OR SHERIE ONLY - RPR 2022-05-09 02:37:00 Fish, Tita [facility] HIV 1/2 AG-AB WITH REFLEX 2022-05-09 02:37:00 Fish, Tita [facility] US PELVIS > 14 2022-05-08 22:49:00 Kentrell Hill [facility] WEEKS [facility] POCT TEST 2022-05-08 21:43:00 Kentrell Hill [facility] BLOOD CULTURE SCREEN 2022-05-08 21:36:00 Kentrell Hill [facility] COVID-19 (ID NOW RAPID 2022-05-08 21:36:00 Ketnrell Hill [facility] TESTING) Medical Branch LAB ONLY COVID 2022-05-08 21:36:00 Kentrell Hill [facility] INTERPRETATION [facility] POCT TEST 2022-05-08 21:32:00 Kentrell Hill [facility] HB ABO GROUPING 2022-05-08 21:25:00 [facility] 2022-05-08 21:24:00 Kentrell Hill [facility] LIPASE 2022-05-08 21:24:00 Kentrell Hill [facility] COMP. METABOLIC PANEL 2022-05-08 21:24:00 Kentrell Hill [facility] ([id number]) [facility] CBC WITH DIFF 2022-05-08 21:24:00 Kentrell Hill [facility] LACTIC ACID WHOLE BLOOD 2022-05-08 21:23:00 Kentrell Hill [facility] URINALYSIS 2022-05-08 21:21:00 Kentrell Hill [facility] Medical [place] ASSIGNMENT OF BENEFITS 2022-05-08 20:39:58 Doctor Un[facility]igned, [facility] CONSENT/REFUSAL FOR 2022-05-08 20:39:27 Doctor Unasstejas, [facility] DIAGNOSIS AND TREATMENT [facility] [place] POCT TEST 2021-07-24 23:19:00 Rocael Crouch [facility] NOTICE OF PRIVACY 2021-07-24 22:11:52 Doctor Unabassem, [facility] PRACTICES [facility] [place] CONSENT/REFUSAL FOR 2021-07-24 22:11:23 Doctor Unasstejas, [facility] DIAGNOSIS AND TREATMENT [facility] [place] POCT URINALYSIS W/O 2019-04-05 00:00:00 Dori Fowler [facility] SPECIFIC GRAVITY Medical Branch TDAP (ADACEL) 2019-03-18 13:11:37 Nery Harding [facility] [place] IMMUNIZATION Medical Branch GC & CHLAMYDIA AMPLIFIED 2019-03-15 16:03:00 [facility] ADC / LCC - DRUG SCREEN 2019-03-15 16:03:00 Dori Fowler [facility] TRIAGE [facility] SICKLE CELL SCREEN 2019-03-15 15:59:00 Dori Fowler [facility] TDAP (ADACEL) 2019-03-15 15:06:37 Dori Fowler [facility] IMMUNIZATION Medical Branch ASSIGNMENT OF BENEFITS 2019-03-15 13:58:12 Doctor Unassigned, Un [facility] Name Medical Branch POCT URINALYSIS W/O 2019-03-15 00:00:00 Dori Fowler [facility] SPECIFIC GRAVITY Medical [place] Encounters Start End Encounter Admission Attending Care Care Encounter Source Date/Time Date/Time Type Type Clinicians Facility Department ID 2022-05-11 Outpatient X [facility] MOOK [id number] Univers 10:15:39 ity [facility] Branch 2022-10-14 2022-10-14 Outpatient R ADUM, [facility] [id number] Univers 09:00:00 09:00:00 TRACIE ity [facility] 2022-10-07 2022-10-07 Outpatient R ADUM, [facility] [id number] Univers 10:00:00 10:00:00 TRACIE ity [facility] 2022-09-29 2022-09-29 Outpatient P KYLE [facility] [id number] Univers 08:00:00 08:00:00 JP lawler y of S, GOFF [facility] 2022-09-23 2022-09-23 Outpatient R ADUM, [facility] [id number] Univers 10:45:00 10:57:08 TRACIE ity [facility] 2022-09-23 2022-09-23 Routine Adum, [facility] 1.2.840.114 [id number] Univers 10:45:00 10:57:08 Tracie MARIE [id number] ity of [place] [id number] Me dical NAL 134 [facility] 2022-09-09 2022-09-09 Site Physician 2, Adc Lab [facility] 1.2.840.114 [id number] Univers 09:45:00 10:00:00 Visit Adum, Tracie Johann MARIE 350.1.13.10 ity [facility] [place] [id number] Ok dical NAL 353 [facility] 2022-09-09 2022-09-09 Outpatient R ADUM, [facility] [id number] Univers 08:00:00 09:35:26 TRACIE ity [facility] 2022-09-09 2022-09-09 Initial Adum, [facility] 1.2.840.114 [id number] Univers 08:00:00 09:35:26 Tracie L ANGLENEELIMA 350.1.13.10 ity of [place] [phone] Me dical NAL 134 [facility] 2022-09-09 2022-09-09 Orders Doctor ERWIN 1.2.840.114 [id number] Univers 00:00:00 00:00:00 Only Unassigned, CARROLL 350.1.13.[address] [facility] 4.2.7.2.686 [place] as [id number] [facility] 009 [place] 2022-09-09 2022-09-09 Telephone Ad, [facility] [id number] Univers 00:00:00 00:00:00 Tracie MARIE 350.1.13.10 ity [place] [id number] Ok dical NAL [address] [place] [address] 2022-09-05 2022-09-05 Telephone Ad, [facility] [id number] Univers 00:00:00 00:00:00 Tracie MARIE 350.1.13.10 ity of [place] [id number] Ok dical NAL [address] [place] [address] 2022-06-13 2022-06-13 Outpatient R MONIKA [facility] [id number] Univers 09:15:00 09:15:00 [facility]22-05-08 2022-05-11 Outpatient X ASHLEY SHANKARN [facility] MOOK [id number] Univers 15:47:00 10:15:00 ity of [facility] 2022-05-08 2022-05-11 Emergency Morrical, Kentrell O [facility] 1.2. 840.114 [id number] Univers 15:47:00 10:15:00 RaadAshleysenthil MARIE 350.1.13.10 ity of [place] [id number] [facility] 083 [place] 2021-07-24 2021-07-24 Emergency X RAYMOND [facility] ERT [id number] Univers 16:26:00 18:27:00 ROCAEL ity [facility] 2021-07-24 2021-07-24 [facility] 1.2.840.114 [id number] Univers 16:26:00 18:27:00 Folusho F [place] 350.1.13.10 ity of [facility] 4.[place] [id number] [address] 2019-10-18 2019-10-18 Outpatient R FOLWER, [facility] [id number] [facility] 09:00:00 09:00:00 DORI ity [facility] 2019-10-04 2019-10-04 Outpatient R FOWLER, [facility] [id number] [facility] 09:00:00 09:00:00 DORI ity [facility] 2019-04-25 2019-04-25 Routine Fowler, [facility] 1.2.840.114 [id number] 10:12:39 11:15:39 Dori [place] 350.1.13.10 Visit [place] 4.2.7.2.686 Professio [id number] [address] 2019-04-25 2019-04-25 Routine Fowler, [facility] 1.2.840.114 [id number] [facility] 10:12:39 11:15:39 Dori [place] 350.1.13.10 ity of Visit [place] 4.2.7.2.686 [facility] [id number] [address] 2019-04-05 2019-04-05 Site Physician Ultrasound, Adc [facility] 1.2 .840.114 [id number] [facility] 10:59:06 11:59:06 Visit Fowler, Dori [place] 350.1.13.10 ity of Elena Barnard [place] 4.2.7.2.686 [place] Professio [id number] [address] 2019-04-05 2019-04-05 Site Physician Ultrasound, [facility] 1.2.840.114 [id number] 10:59:06 11:59:06 Visit Adc [facility] [place] 350.1.13.10 [place] 4.2.7.2.686 Professio [id number] [address] 2019-04-05 2019-04-05 Routine Fowler, [facility] 1.2.840.114 [id number] [facility] 08:44:38 09:20:31 Dori [place] 350.1.13.10 ity of Visit [place] [phone] [address] 2019-04-05 2019-04-05 Routine Fowler, [facility] 1.2.840.114 [id number] 08:44:38 09:20:31 Dorimilagros Marie 350.1.13.10 Visit [place] 4.2.7.2.686 Professio [phone] [address] 2019-03-15 2019-03-15 Site Physician 1, Adc Lab [facility] 1.2.840.114 [id number] [facility] 10:32:03 10:47:03 Visit Dori Fowler 350.1.13.10 ity of [place] 4[place] [phone] [address] 2019-03-15 2019-03-15 Site Physician 1, Adc Lab [facility] 1.2.840.114 [id number] 10:32:03 10:47:03 Visit Kadi 350.1.13.10 [place] 4.2.7.2.686 [place] [phone] [facility] 2019-03-15 2019-03-15 Initial Fowler, [facility] 1.2.840.114 [id number] [facility] 08:59:50 10:08:54 Dori Marie 350.1.13.10 ity of Visit [place] [phone] [address] 2019-03-15 2019-03-15 Initial Fowler, [facility] 1.2.840.114 [id number] 08:59:50 10:08:54 [place]ilagros [place] 350.1.13.10 Visit [place] 4.2.7.2.686 Profess[place] [phone] [address] 2019-03-15 2019-03-15 Orders Doctor ERWIN 1.2.840.114 [id number] Univers 00:00:00 00:00:00 Only Unassigned, [place] 350.1.13.[address] [facility] 4.2.7.2.686 [place] [phone] [facility] 009 [place] 2019-03-15 2019-03-15 [facility] 1.2.840.114 [id number] [facility] 00:00:00 00:00:00 Dori Marie 350.1.13.10 i ty of [place] [phone] Ok dical [facility] 134 [facility] 2019-03-15 2019-03-15 Orders Doctor ERWIN 1.2.840.114 [id number] 00:00:00 00:00:00 Only Unassigned, [place] 350.1.13.[address] [facility] 4.2.7.2.686 [phone] [facility] 2019-03-15 2019-03-15 Telephone Fowler, [facility] 1.2.840.114 [id number] 00:00:00 00:00:00 Dori Marie 350.1.13.10 [place] 4.2.7.2.686 Profess[place] [phone] [address] Results Test Description Test Time Test Comments Results Result Comments Source POCT URINALYSIS W/O SPECIFIC GRAVITY 2022-09-23 16:42:00 Test Item Value Reference Range Interpretation Comme nts POCT PH U (test code = 3254) n/a 5-8 POCT U LEUK EST (test code = 3263) n/a Negative - Negative POCT U NIT (test code = 3262) n/a Negative - Negative POCT U PROT (test code = 3259) negative Negative - Negative POCT U GLU (test code = 3256) negative Negative - Negative POCT U KETONE (test code = 3258) n/a Negative - Negative POCT U BLD (test code = 3257) n/a Negative - Negative [facility]O SPECIFIC [id number] 14:30:00 Test Item Value Reference Range Interpretation Comments POCT PH U (test code = 3254) n/a 5-8 POCT U LEUK EST (test code = n/a Negative - Negative 3263) POCT U NIT (test code = 3262) n/a Negative - Negative POCT U PROT (test code = 3259) negative Negative - Negative POCT U GLU (test code = 3256) negative Negative - Negative POCT U KETONE (test code = 3258) n/a Negative - Negative POCT U BLD (test code = 3257) n/a Negative - Negative [facility], [id number] 19:39:19 Test Item Value Reference Range Interpretation Comments HAPTOGLOB (test code = 3580983873) 271 mg/dL 16-200 H Lab Interpretation (test code = Abnormal 27619-9) [facility] Hospital[facility] IRON BINDING [id number] 02:07:42 Test Item Value Reference Range Interpretation Comments TIBC (test code = 6517300218) 291 ug/dL 250-410 Lab Interpretation (test code = Normal 47507-2) [facility]AT[facility]IS A VIRUS ANTIBODY [id number] 16:25:24 Test Item Value Reference Range Interpretation Comments HAVM Negative Semi-Quantitative (test code = 50787-4) YESI (test code = HAVAb IgM Interpretative YESI) Information: Reactive greater than or equal to 1.2 Biotin has been reported to cause a negative bias, interpret results relative to patient's use of biotin. [facility] HospitalRUBELLA SCREEN [id number] 15:39:16 Test Item Value Reference Range Interpretation Comments Rubella screen IgG Positive Negative (test code = 2620387623) YESI (test code = YESI) Positive - Indicates the patient was exposed to Rubella through infection or vaccination.Negative - Indicates the patient could be susceptible to Rubella infection.Equivocal - A second specimen should be sent. [facility] HospitalVZV ANTIBODY [id number] 15:39:16 Test Item Value Reference Range Interpretation Comments VZV IgG antibody Positive Negative (test code = 89759-9) YESI (test code = YESI) Positive - Indicates the patient was exposed to VZV through infection or vaccination.Negative - Indicates the patient could be susceptible to VZV infection.Equivocal - A second specimen should be sent for testing. [facility] HospitalEBV VIRAL CAPSID IGM [id number] 15:38:34 Test Item Value Reference Range Interpretation Comments EBV Viral Capsid IgM Negative Negative Antibody (test code = 4403563448) YESI (test code = YESI) Positive - Indicates a current or reactivated infection with EBV.Negative - Indicates no detectable IgM to EBV VCA. Interpret in conjunction with EBV IgG results.Equivocal - A second sample should be sent. Lab Interpretation (test Normal code = 48360-9) [facility] VIRAL CAPSID IGG [id number] 15:37:58 Test Item Value Reference Range Interpretation Comments Jasper Whitnye Virus Positive Negative Viral Capsid IgG (test code = 6819336416) YESI (test code = YESI) Positive - Indicates current or past infection with Jasper Whitney virus.Negative - Indicates no serologic evidence of EBV infection. Cannot exclude acute EBV infection.Equivocal - Indicates a second sample should be sent. [facility] HospitalCOM. METABOLIC PANEL (08908)2022-05-09 12:27:02 Test Item Value Reference Range Interpretation Comments NA (test code = 135 mmol/L 135-145 1103018379) K (test code = 3.6 mmol/L 3.5-5 7908186666) CL (test code = 105 mmol/L 98-108 6788246217) CO2 TOTAL (test code = 21 mmol/L 23-31 L 6898090521) AGAP (test code = 2-16 9165223627) BUN (test code = 3 mg/dL 7-23 L 0380784987) GLUCOSE (test code = 97 mg/dL 70-110 3970995984) CREATININE (test code = 0.41 mg/dL 0.5-1.04 L 0296651437) TOTAL BILI (test code = 1.8 mg/dL 0.1-1.1 H 0085390610) CALCIUM (test code = 8.5 mg/dL 8.6-10.6 L 7256933522) T PROTEIN (test code = 6.5 g/dL 6.3-8.2 9135978485) ALBUMIN (test code = 3.3 g/dL 3.5-5 L 1985636574) ALK PHOS (test code = 60 U/L 34-122 1300726437) ALTv (test code = 34 U/L 5-35 1742-6) AST(SGOT) (test code = 24 U/L 13-40 3406452136) eGFR (test code = mL/min/1.73m2 2937079834) YESI (test code = YESI) Association of Glomerular Filtration Rate (GFR) and Staging of Kidney Disease* + --+ --+ ------+| GFR (mL/min/1.73 m2) ?| With Kidney Damage ?| ?Without Kidney Damage+ --------+ --------+ +| ?>90 ?| ?Stage one ?| ? Normal ?+ ---+ ---+ -------+| ?60-89 ?| ?Stage two ?| ? Decreased GFR ? + --+ --+ ------+| ?30-59 ?| ?Stage three ?| ? Stage three ? + --+ --+ ------+| ?15-29 ?| ?Stage four ? | ? Stage four ?+ ---+ ---+ -------+| ?<15 (or dialysis) ? ?| ?Stage five ? | ? Stage five ?+ ---+ ---+ -------+ *Each stage assumes the associated GFR level has been in effect for at least three months. ?Stages 1 to 5, with or without kidney disease, indicate chronic kidney disease. Notes: Determination of stages one and two (with eGFR >59mL/min/1.73 m2) requires estimation of kidney damage for at least three months as defined by structural or functional abnormalities of the kidney, manifested by either:Pathological abnormalities or Markers of kidney damage (including abnormalities in the composition of the blood or urine or abnormalities in imaging tests). Lab Interpretation Abnormal (test code = 48709-6) [facility] WITH [id number] 12:18:42 Test Item Value Reference Range Interpretation Comments WBC (test code = See_Comment [Automated 4490-2) message] The sy stem which generated this result transmitted reference range : 4.30 - 11.10 10*3/?L. The reference range was not used to interpret this result as normal/abnormal . RBC (test code = See_Comment L [Automated 049-8) message] The sy stem which generated this result transmitted reference range : 3.93 - 5.25 10*6/?L. The reference range was not used to interpret this result as normal/abnormal . HGB (test code = 8.3 g/dL 11.6-15 L 718-7) HCT (test code = 25.5 % 35.7-45.2 L 4544-3) MCV (test code = 90.7 fL 80.6-95.5 787-2) MCH (test code = 29.5 pg 25.9-32.8 785-6) MCHC (test code = 32.5 g/dL 31.6-35.1 786-4) RDW-SD (test code = 45.1 fL 39-49.9 16360-4) RDW-CV (test code = 13.7 % 12-15.5 788-0) PLT (test code = See_Comment [Automated 777-3) message] The sy stem which generated this result transmitted reference range : 166 - 358 10*3/ ?L. The reference r rush was not used to interpret this result as normal/abnormal . MPV (test code = 10.3 fL 9.5-12.9 90987-1) NRBC/100 WBC (test See_Comment [Automat ed code = 9079964883) message] The system which generated this result transmitted reference range : 0.0 - 10.0 /100 WBCs. The refer ence range was not u sed to interpret th is result as normal/abnormal . NRBC x10^3 (test code See_Comment [Auto mated = 6865279539) message] The s ystem which generated this result transmitted reference range : 10*3/?L. The reference range was not used to interpret this result as normal/abnormal . GRAN MAT (NEUT) % 76.2 % (test code = 770-8) IMM GRAN % (test code 1.80 % = 2456006185) LYMPH % (test code = 11.0 % 736-9) MONO % (test code = 10.5 % 5905-5) EOS % (test code = 0.2 % 713-8) BASO % (test code = 0.3 % 706-2) GRAN MAT x10^3(ANC) 7.53 10*3/uL 1.88-7.09 H (test code = 4223126880) IMM GRAN x10^3 (test 0.18 10*3/uL 0-0.06 H code = 4998713803) LYMPH x10^3 (test code 1.09 10*3/uL 1.32-3.29 L = 731-0) MONO x10^3 (test code 1.04 10*3/uL 0.33-0.92 H = 742-7) EOS x10^3 (test code = 0.03-0.39 L 711-2) BASO x10^3 (test code 0.03 10*3/uL 0.01-0.07 = 704-7) Lab Interpretation Abnormal (test code = 92080-9) [facility]CV [id number] 06:31:20 Test Item Value Reference Range Interpretation Comments HCV Ab (test code = 67718-8) Negative HCV Semi-Quantitative (test code = 00847-7) [facility]HEPAT[facility]IS B SURFACE [id number] 06:13:54 Test Item Value Reference Range Interpretation Comments HBsAg Semi-Quantitative (test code = Negative Negative 5195-3) [facility] SHERIE ONLY - [id number] 05:58:45 Test Item Value Reference Range Interpretation Comments RPR (Qualitative) (test code = Nonreactive Nonreactive 22868-8) Lab Interpretation (test code = Normal 74969-0) [facility] HospitalEBV-MONONUCLEOSIS [id number] 03:59:54 Test Item Value Reference Range Interpretation Comments EBV Mononucleosis Screen (test code Negative Negative = 5969699364) Lab Interpretation (test code = Normal 43815-1) [facility] HospitalHIV 1/2 AG-AB WITH [id number] 03:37:52 Test Item Value Reference Range Interpretation Comments HIV Negative Negative Semi-quantitative (test code = 86167-7) YESI (test code = Non-reactive for HIV-1 YESI) antigen and HIV-1/HIV-2 antibodies. ?No laboratory evidence of HIV infection. ?Repeat in 2-4 weeks if acute HIV infection is suspected. [facility] HospitalType and Screen - ONCE [id number] 22:21:23 Test Item Value Reference Range Interpretation Comments ABO & RH (test code O Positive Performe d at [facility] = 20) Laboratory Serv [facility] [place], [place] [id number] Free: [phone] A No. [id number] IAT (test code = Negative Performed a t [facility] 1185) Laboratory Serv [facility] [address] [place], [place] [id number] Free: [phone] A No. [id number] [facility]POCT [id number] 21:43:00 Test Item Value Reference Range Interpretation Comments POCT PREG (test code = 1605) positive On board controls acceptable with present C Line (test code = 3574) POCT PREG LOT # (test code = 3575) [id number] POCT PREG TEST DATE (test 10/05/2023 code = 3576) Lab Interpretation (test code = Normal 38523-5) [facility]PO[facility] [id number] 21:32:00 Test Item Value Reference Range Interpretation Comments POCT PREG (test code = 1605) positive On board controls acceptable with C present Line (test code = 3574) Lab Interpretation (test code = Normal 59744-3) [facility] HospitalLactic Acid Whole [id number] 21:26:49 Test Item Value Reference Range Interpretation Comments LACTIC ACID (test code = 1.28 mmol/L 0.5-2.2 3888748826) Lab Interpretation (test code = Normal 78117-3) [facility] [id number] 23:19:00 Test Item Value Reference Range Interpretation Comments POCT PREG (test code = 1605) negative On board controls acceptable with C present Line (test code = 3574) POCT PREG LOT # (test code = 3575) [id number] POCT PREG TEST DATE (test code = 3576) Lab Interpretation (test code = Normal 68151-0) [facility] URINALYSIS W/O SPECIFIC [id number] 13:57:00 Test Item Value Reference Range Interpretation [...] code = 3257) N/A Negative - Negative [facility] CHLAMYDIA AMPLIFIED [id number] 18:15:00 Test Item Value Reference Range Interpretation Comments Lab Interpretation (test code = Normal 18095-2) [facility] [id number] 03:35:00 Test Item Value Reference Range Interpretation Comments SICKLE SCR (test code = 0479410281) Negative Negative Lab Interpretation (test code = Normal 77856-1) [facility] - DRUG SCREEN [id number] 17:19:00 Test Item Value Reference Range Interpretation Comments BENZO U (test code = Negative Negative 6604950381) PATSY U (test code = Negative Negative 1776562185) AMPHET (test code = Negative Negative 0530646345) THC (test code = Presumptive Negative A Confirmatio n of 0566264315) Positive Presumptive Positive THC result requires physician order . METHADONE (test code Negative Negative = 5402584334) Meth U (test code = Negative Negative 4554235827) OPIATES (test code = Negative Negative 4259618867) Cocaine Metabolite Negative Negative (test code = 1009358776) PROPOXY (test code = Negative Negative 6600482264) Tric U (test code = Negative Negative 4973188186) PCP (test code = Negative Negative 0905597649) OXYCOD (test code = Negative Negative 5653100585) YESI (test code = Urine Drug Cutoff YESI) RangesBenzodiazep marc: ? ? 150 ng/mLBarbiturates : [...] testing). Lab Interpretation Abnormal (test code = 90210-4) [facility]/O SPECIFIC [id number] 15:00:00 Test Item Value Reference Range Interpretation [...] Negative Lab Interpretation (test code = Normal 26344-2) [facility]"
== END 2022-10-09 22:38 | disposition left against medical advice (07) ==
LOC: ER 22:24
DX: Z53.21 Procedure and treatment not carried out due to patient leaving prior to being seen by health care provider (principal)
CPT/HCPCS: 99281